=== PATIENT | female | born 1950 | race Caucasian/White ===

== ENCOUNTER → 2023-07-21 07:00 | Outpatient (CLI) | payer MEDICARE, SELFPAY ==
--- NOTE | 2023-07-21 07:19 | XR_ITS ---
FINAL REPORT CLINICAL HISTORY: wheezing FINDINGS: 2 views of the chest were obtained . The heart is normal in size. The mediastinum is within normal limits. There is mild linear atelectasis or scarring at the left lung base. The lungs are otherwise clear. There is no pneumothorax. Osseous structures are unremarkable. IMPRESSION: Mild linear atelectasis or scarring at the left lung base. Reviewed, Interpreted and Dictated by Phoenix Wright III, MD Transcribed by Elvira Torres Authenticated and [facility]
[2023-07-21 07:40] LABS: Basophils # 0.1 K/mm3 (0-0.2); Basophils % 0.8 % (0.1-2.0); Eosinophils # 0.4 K/mm3 (0.0-0.4); Eosinophils % 3.6 % (0.1-12.0); Hematocrit 46.8 % (37.0-47.0); Hemoglobin 15.1 g/dL (12.2-16.2); Lymphocytes # 3.1 K/mm3 (0.7-4.5); Lymphocytes % 28.4 % (10-50); Mean Corpuscular HGB Conc 32.4 g/dL (31.8-35.4); Mean Corpuscular Hemoglobin 29.7 pg (27.0-31.2); Mean Corpuscular Volume 91.8 fl (81-99); Mean Platelet Volume 7.8 fl (7.4-10.4); Monocytes # 0.7 K/mm3 (0.1-1.0); Monocytes % 6.6 % (1.7-9.3); Neutrophils # 6.6 K/mm3 (1.8-7.8); Neutrophils % 60.6 % (37.0-80.0); Platelet Count 355 K/mm3 (142-424); Red Blood Count 5.09 M/mm3 (4.20-5.40); Red Cell Distribution Width 13.5 % (11.5-17.5)
[2023-07-21 08:13] LABS: Alanine Aminotransferase 20 U/L (12-78); Albumin Level 4.6 g/dl (3.5-5.0); Alkaline Phosphatase 87 U/L (38-126); Anion Gap 15.1 mEq/L (5-15); Aspartate Amino Transferase 24 U/L (14-36); Bilirubin,Direct 0.1 mg/dl (0.0-0.4); Bilirubin,Indirect 0.2 mg/dL (0.0-0.9); Bilirubin,Total 0.3 mg/dl (0.2-1.3); Bilirubin,Unconjugated 0.2 mg/dL (0.0-1.1); Blood Urea Nitrogen 20 mg/dl (7-17); Calcium 8.9 mg/dl (8.4-10.2); Carbon Dioxide 24 mmol/L (22.0-30.0); Chloride 105 mmol/L (98-107); Chol/HDL Ratio 3.5 (1-3.5); Cholesterol 198 mg/dl (140-200); Estimated Glomerular Filt Rate 54 ml/min (>60); GFR (African American) 66 ML/MIN (>60); Glucose 112 mg/dl (74-100); HDL Cholesterol 57 mg/dl (40-60); Magnesium 2.3 mg/dl (1.6-2.3); Potassium 4.1 mmoL/L (3.5-5.1); Sodium 140 mmol/L (136-145); Total Protein,Serum 7.8 g/dl (6.3-8.2); Triglycerides 182 mg/dl (30-150); VLDL Cholesterol 36 mg/dL (0-40)
[2023-07-21 08:24] LABS: Direct LDL Cholesterol 79.93 mg/dL (100-129)
[2023-07-21 08:43] LABS: Thyroid Stimulating Hormone 1.65 uIU/mL (0.465-4.68)
== END ==
PROVIDERS: PCP Nurse Practitioner Family; Visit Provider Physician Assistant
DX: E78.5 Hyperlipidemia, unspecified (principal); I10 Essential (primary) hypertension; R00.2 Palpitations; R60.0 Localized edema; Z82.49 Family history of ischemic heart disease and other diseases of the circulatory system; R06.2 Wheezing; R09.89 Other specified symptoms and signs involving the circulatory and respiratory systems; Z85.528 Personal history of other malignant neoplasm of kidney; Z87.19 Personal history of other diseases of the digestive system; Z90.5 Acquired absence of kidney
CPT/HCPCS: 36415; 71046; 80048; 80061; 80076; 83735; 84439; 84443; 85025

== ENCOUNTER → 2023-07-23 06:12 | Outpatient (CLI) | payer MEDICARE, SELFPAY ==
--- NOTE | 2023-07-23 06:16 | NM_ITS ---
APPROVED REPORT Exam: Nuclear Stress Test Indication: swelling..high BP..high cholesterol..family hx Patient Location: Outpatient Stress Tech: Roselia Juan ALVAREZ Tech:Eliz Castaneda OMERO RT(R)(N) Ht: 5 ft 7 in Wt: 173 lbs Bra Size: 36dd HR: 71 bpm BP: 169/87 mmHg BSA: 1.90 m2 TID: 1.08 BMI: 27.0 History: swelling..high BP..high cholesterol..family hx Procedure: Patient received 0.4 mg of intravenous Lexiscan, resting heart rate 71 bpm, resting blood pressure 169/87 mmHg, with Lexiscan maximum heart rate achieved was 91 bpm which is 85 % of the maximum predicted heart rate and blood pressure was 194/89 mmHg. With Lexiscan, patient denied any complaint of chest pain. Cardiac Stress and Resting SPECT Images: Cardiac Stress and Resting SPECT images were obtained using technetium 99m Myoview 31.7 mCi stress and 10.76 mCi at rest. Resting and stress imaging in both supine and prone positions demonstrate no evidence of fixed or reversible perfusion defects. Gated imaging demonstrates normal global and regional LV systolic function. LVEF is calculated at 64%. Conclusion: No evidence of fixed or reversible perfusion defects. Gated imaging demonstrates normal global and regional LV systolic function. LVEF is calculated at 64%. Electronically signed by : Martha Murillo MD 08/02/2023 17:34:08
--- NOTE | 2023-07-23 06:40 | CA_ITS ---
FINAL REPORT CLINICAL HISTORY: leg swelling left greater than right FINDINGS: Color Doppler, duplex Doppler and compression sonography of the bilateral lower extremities was performed. There is no evidence of deep venous thrombosis from the level of the groin to the calf. The deep veins are patent and compressible. There is a moderate sized popliteal cyst on the left. IMPRESSION: No evidence of deep venous thrombosis bilateral lower extremities. Reviewed, Interpreted and Dictated by Phoenix Wright III, MD Transcribed by Rhina Medina Authenticated and [facility]
--- NOTE | 2023-07-23 06:40 | US_ITS ---
FINAL REPORT CLINICAL HISTORY: decreased pedal pulses, HTN FINDINGS: COMPLETE ANKLE/BRACHIAL INDICES BILATERAL Ankle brachial indices were obtained. The right DENNISE is 1.1. The left DENNISE is 1.1. IMPRESSION: ABIs are within normal limits bilaterally. Reviewed, Interpreted and Dictated by Phoenix Wright III, MD Transcribed by Rhina Medina Authenticated and . [facility]
--- NOTE | 2023-07-23 08:52 | CA_ITS ---
APPROVED REPORT Exam: Pharmacologic Technologist: Roselia Martinez Ht: 5 ft 7 in Wt: 173 lbs BSA: 1.90 m2 HR: 68 bpm BP: 169/87 mmHg Rhythm: NSR Indications: Hypertension, Palpitations, Edema Medical History Medications: Lisinopril,,,,, Simvastatin,,,,, Carvedilol,,,,, LoraTidine,,,,, Felodipine ER,,,,, Stress Test Details Test: LEXISCAN HR Resting HR: 71 bpm Max Heart Rate (APMHR): 147 bpm Max HR Achieved: 91 bpm Target HR (85% APMHR): 125 bpm % of APMHR: 62 Recovery HR: 76 bpm BP Resting BP: 169.0/87.0 mmHg Max BP: 194.0/89.0 mmHg Recovery BP: 146.0/86.0 mmHg ECG Resting ECG: Normal sinus rhythm Stress ECG: No significant ST changes Arrhythmia: PVCs Clinical Exercise duration: 04:03 min Highest Stage Achieved: Exercise capacity: 1.0 METs Stress ECG Conclusion Symptoms: Mild shortness of air, stomach and head discomfort. No chest pain. Arrhythmias/Ectopy: Occassional PVCs ST-T Changes: No significant ST changes. Conclusion: Unremarkable Lexiscan stress test. Myoview images reported separately. Test Summary REST . . . . . . . Resting REST 06:43 . . 71 . 169/ 87 . . Stage 1 . . . . . . . Myoview Injected Stage 1 01:00 . . 84 . . . . Stage 2 01:00 . . 89 . 194/ 89 . . Stage 3 01:00 . . 85 . 187/ 91 . . Stage 4 01:00 . . 79 . 181/ 88 . . Stage 4 01:03 . . 80 . 181/ 88 . Stop exercise at 04:03 RECOVERY 01:00 . . 79 . 176/ 89 . . RECOVERY 02:00 . . 81 . 176/ 89 . . RECOVERY 03:00 . . 80 . 146/ 86 . . RECOVERY 03:30 . . 77 . 146/ 86 . . Electronically signed by : Martha Murillo MD 08/02/2023 17:32:31
== END ==
PROVIDERS: PCP Nurse Practitioner Family; Visit Provider Physician Assistant
DX: E78.5 Hyperlipidemia, unspecified (principal); I10 Essential (primary) hypertension; R00.2 Palpitations; R07.9 Chest pain, unspecified; R60.0 Localized edema; Z82.49 Family history of ischemic heart disease and other diseases of the circulatory system; R09.89 Other specified symptoms and signs involving the circulatory and respiratory systems; M79.604 Pain in right leg; M79.605 Pain in left leg
CPT/HCPCS: 78452; 93017; 93923; 93970; A9502; J2785

== ENCOUNTER → 2023-08-06 12:38 | Outpatient (CLI) | payer MEDICARE, SELFPAY ==
--- NOTE | 2023-08-06 12:54 | CA_ITS ---
APPROVED REPORT EXAM: Comprehensive 2D, Doppler, and color-flow Echocardiogram Staff Veterinarian: Vani Hudson RVT Ht: 5 ft 7 in Wt: 173lbs BSA: 1.90 BP: 175/95 mmHg Indications: EDEMA,PALPS,HTN,HX RENAL CELL CA 2D Dimensions LVOT 1.87 cm (M/F) 1.5-2.5 LA Volume 48.40 mL LA Volume Index 25.47 mL/m2 (M/F) 16-34 M-Mode Dimensions RVDd 3.41 cm (0.9-2.6) LA Diam 3.92 cm (1.9-4.0) LVDd 3.45 cm (3.5-5.7) Ao Diam 2.88 cm (2.0-3.7) LVDs 2.49 cm (3.5-5.7) IVSd 1.40 cm (0.6-1.1) PWd 0.64 cm (0.6-1.1) EF (Teich) 55.00% FS 27.80% EDV (Teich) 49.10 mL TAPSE 2.33 (<1.7) ESV (Teich) 22.10 mL LV Diastology E Decel Time 257.00 (160-240 msec) E/A Ratio 0.7 MED E' 8.60 (< 7 cm/sec) E'/MED E' Ratio 7.17 (>14) LAT E' 5.40 (<10 cm/sec) E/LAT E' Ratio 11.43 (>14) Aortic Valve LVOT Max 99.00 (70-110 cm/s) LVOT VTI 21.89 cm AoV Peak Molina. 151.00 (50-130 cm/s) AO Peak GR. 9.10 mmHg AO Mean GR. 4.20 (<5 mmHg) AO VTI 29.46 (18-25 cm) ANTOINETTE (VTI) 2.04 (2.5-4.5 cm2) Mitral Valve MV E Max Molina. 62.00 (40-130 cm/s) MV A Velocity 95.00 (40-130 cm/s) E/A Ratio 0.65 MV Decel. Time 257.00 (160-240 ms) MV PHT 75.00 ms Pulmonary Valve PV Peak Velocity 80.00 (50-150 cm/s) Tricuspid Valve TR P. Velocity 291.00 cm/s RAP Estimate 10.00 mmHg RVSP 43.80 mmHg Left Ventricle The left ventricle is normal size. The left ventricular systolic function is normal. The left ventricular ejection fraction is within the normal range. There is increased LV wall thickness (IVSd 1.4 cm). There is normal LV segmental wall motion. The left ventricular diastolic function is normal. LVEF is 60%. Right Ventricle The right ventricle is normal size. The right ventricular systolic function is normal. There is increased RV wall thickness. Atria The left atrium size is normal. There is no Doppler evidence of interatrial shunt. Aortic Valve The aortic valve is mildly thickened. There is no aortic valvular stenosis. Trace aortic regurgitation. Mitral Valve The mitral valve leaflets are mildly thickened. No evidence of mitral valve stenosis. Trace mitral regurgitation. Tricuspid Valve The tricuspid valve leaflets are thin and pliable. Mild tricuspid regurgitation. RVSP is 30-35 mmHg. Pulmonic Valve The pulmonary valve is normal in structure. Trace pulmonic regurgitation. Great Vessels The aortic root is normal in size. The ascending aorta is normal in size. IVC is normal in size and collapses >50% with inspiration. There are no echodensities noted in the IVC. Pericardium There is no pericardial effusion. Other Information Study Quality: Fair Conclusion Normal biventricular systolic function. Increased LV wall thickness (IVSd=1.4 cm). No significant valvular stenosis or regurgitation. Electronically signed by : Martha Murillo MD 08/09/2023 19:25:54
== END ==
PROVIDERS: PCP Nurse Practitioner Family; Visit Provider Physician Assistant
DX: E78.5 Hyperlipidemia, unspecified (principal); I10 Essential (primary) hypertension; R00.2 Palpitations; R60.0 Localized edema; Z82.49 Family history of ischemic heart disease and other diseases of the circulatory system
CPT/HCPCS: 93306

== ENCOUNTER → 2023-09-11 09:31 | Outpatient (CLI) | payer MEDICARE, SELFPAY ==
--- NOTE | 2023-09-11 09:38 | XR_ITS ---
FINAL REPORT CLINICAL HISTORY: LT LEG PAIN and numbess COMPARISON: None FINDINGS: Two views of the left tibia/fibula were obtained. There is no acute fracture or dislocation. There is moderate degenerative change of the knee. There is no acute soft tissue abnormality. IMPRESSION: No acute abnormality identified. Reviewed, Interpreted and Dictated by Phoenix Wright III, MD Transcribed by Renée Lynn Authenticated and . [facility]
== END ==
PROVIDERS: PCP Nurse Practitioner Family; Visit Provider Orthopaedic Surgery
DX: M79.605 Pain in left leg (principal)
CPT/HCPCS: 73590

== ENCOUNTER 2024-04-12 09:58 | Outpatient (POV) | payer MEDICARE, SELFPAY ==
[2024-04-12 10:52] VITALS: BP 160/90; PULSE 66; RESP 18; O2SAT 96; BMI 29.0
--- NOTE | 2024-04-12 11:03 | XR_ITS ---
FINAL REPORT CLINICAL HISTORY: JOVAN KNEE PAIN COMPARISON: None FINDINGS: Three views of the left knee reveal no evidence of fracture or dislocation. The bony alignment is normal. There is moderate to severe degenerative change in the left knee, most severe in the medial compartment. There is a small joint effusion present. No localized soft tissue abnormality is seen. IMPRESSION: No acute abnormality identified. Moderate to severe degenerative change, most severe in the medial compartment. Reviewed, Interpreted and Dictated by Phoenix Wright III, MD Transcribed by Sonja Rhodes Authenticated and [facility]
--- NOTE | 2024-04-12 11:03 | XR_ITS ---
FINAL REPORT CLINICAL HISTORY: LBP COMPARISON: None FINDINGS: 5 views of the lumbar spine were obtained. There is no evidence of fracture or dislocation. There is mild levoscoliosis present at the L1 level. There is moderate degenerative change with multilevel osteophytes present. Facet arthropathy is noted. Vascular calcifications are present. IMPRESSION: No acute bony abnormality. Moderate degenerative change as described above. Reviewed, Interpreted and Dictated by Phoenix Wright III, MD Transcribed by Sonja Rhodes Authenticated and [facility]
--- NOTE | 2024-04-12 11:03 | XR_ITS ---
FINAL REPORT CLINICAL HISTORY: JOVAN KNEE PAIN COMPARISON: None FINDINGS: Three views of the right knee reveal no evidence of fracture or dislocation. The bony alignment is normal. There is moderate to severe degenerative change in the right knee, most severe in the medial compartment. A small joint effusion is present. No localized soft tissue abnormality is identified. IMPRESSION: No acute abnormality identified. Moderate to severe degenerative change in the right knee, most severe in the medial compartment. Reviewed, Interpreted and Dictated by Phoenix Wright III, MD Transcribed by Sonja Rhodes Authenticated and [facility]
--- NOTE | 2024-04-12 11:40 | A.OFFVIS_ITS ---
HPI Data of Consult Patient: new to practice Consult date: 04/12/24 Requesting Physician: Elsa Farah APRN Primary Care Provider: Maci Driscoll Consult Narrative Reason for consult: Bilateral knee pain, low back pain History of present illness: Ms. Mi is a 73 year old female who presents today as a new patient. Patient is a referral from Cal Farah's office. Today she rates her pain an 8 out of 10. Patient states the pain is throughout her bilateral knees as well as chronic low back pain. Patient states this is been going on for years and progressively worsened over time. She does describe it as a chronic aching, sensation with numbness. Patient states that she did see a arthritis doctor [facility] 6 years ago and they told her then that her knees were [id number] and that she needed a replacement. Patient states that she has tried conservative treatment such as Tylenol along with heat and ice and topicals with minimal relief. Patient does states she has to avoid NSAIDs due to having only 1 kidney functioning. Patient states she had cancer on the kidney and that they did monitor it regularly and states they have not had any issues with this since. Patient does state that her pain interferes with her ability perform activities of daily living such as cooking and cleaning and that it significantly increases when she is up walking. Patient states that sitting down is not that bad. Patient denies any recent imaging. Patient denies any previous surgery or physical therapy. Patient has had several sessions of chiropractor therapy and states that this has helped some. Patient does try and stay active at home with exercise and stretching. Patient has had injection in her left knee however states this did not really help. She also states she has had a round of gel injections as well with no additional improvement. Patient does states she will even have some swelling in her left lower extremity. Patient is interested in any help we may be able to provide. Her Domo has been reviewed and is appropriate. CC: Elsa Farah APRN [facility] Disclaimer: The information contained in this section may have been updated after the patient was seen, as this information can be updated by other users. Medical History (Updated 04/12/24 @ 11:44 by Elsa Farah APRN) History of colitis History of renal cell cancer Edema of both lower extremities HLD (hyperlipidemia) HTN (hypertension) Family history of chronic ischemic heart disease Surgical History (Updated 04/12/24 @ 10:53 by Emely Malave RN) Surgical history unknown History of nephrectomy Family History (Updated 04/12/24 @ 10:53 by Emely Malave RN) Other Unknown family medical history Social History (Updated 04/12/24 @ 10:54 by Emely Malave RN) Smoking Status: Never smoker alcohol intake: never current occupational status: other Travel in the last 8 weeks: None Review of Systems Review of Systems Review of systems:: pertinent systems reviewed and negative unless documented below Review of systems (narrative): Review of Systems: General: No recent weight changes, no fever, no sleep disturbances Respiratory: No cough, no shortness of air, no recurring pulmonary infections Cardiovascular/peripheral vascular: No chest pain, no palpitations, no edema, no shortness of breath Gastrointestinal: No new onset incontinence, normal bowel movements reported Genitourinary: No new onset incontinence Musculoskeletal: Low back pain, bilateral knee pain Psychiatric: [Normal mood/affect] Neurological: [Denies weakness in extremities], [denies balance issues] Meds Home Medications and Allergies Home Medications Medication Instructions Recorded Confirmed Type loratadine 10 mg tablet 10 mg PO DAILY 07/17/23 03/23/24 History simvastatin 40 mg tablet 40 mg PO DAILY 07/17/23 03/23/24 History felodipine 10 mg tablet,extended 10 mg PO DAILY 08/13/23 03/23/24 History release 24 hr ibandronate 150 mg tablet 150 mg PO QMONTH 11/13/23 03/23/24 History losartan 100 mg tablet See Rx Instructions .Route 12/10/23 03/23/24 Rx .COMPLEX #90 tabs potassium chloride 10 mEq 10 meq PO DAILY 12/30/23 03/23/24 History tablet,extended release carvedilol 12.5 mg tablet See Rx Instructions .Route 03/08/24 03/23/24 Rx .COMPLEX #60 tabs New Prescriptions to Start Prescriptions: Allergies Allergy/AdvReac Type Severity Reaction Status Date / Time No Known Allergies Allergy Verified 03/23/24 11:53 Objective Vital signs: Pulse Resp BP Pulse Ox O2 Del Method 66 18 160/90 H 96 Room Air 04/12/24 10:52 04/12/24 10:52 04/12/24 10:52 04/12/24 10:52 04/12/24 10:52 Narrative: Physical Exam: General: Alert and oriented x3, no acute distress, pleasant and cooperative Lungs: Respirations even and unlabored, symmetrical chest expansion Eyes: PERRL Musculoskeletal: Flexion and extension of lumbar [spine] somewhat guarded secondary to pain, [antalgic gait noted] Neurological: Speech clear, no gross sensory deficit Assessment and Plan *Assessment and plan (1) Osteoarthritis of right knee: Status: Acute Qualifiers: Osteoarthritis type: primary Qualified Code(s): M17.11 - Unilateral primary osteoarthritis, right knee Category: Medical Code(s): M17.11 - Unilateral primary osteoarthritis, right knee (2) Osteoarthritis of left knee: Status: Acute Qualifiers: Osteoarthritis type: primary Qualified Code(s): M17.12 - Unilateral primary osteoarthritis, left knee Category: Medical Code(s): M17.12 - Unilateral primary osteoarthritis, left knee (3) Lumbar radiculopathy: Status: Acute Category: Medical Code(s): M54.16 - Radiculopathy, lumbar region (4) Low back pain: Status: Acute Qualifiers: Chronicity: chronic Back pain laterality: bilateral Sciatica presence: without sciatica Qualified Code(s): M54.50 - Low back pain, unspecified; G89.29 - Other chronic pain Category: Medical Code(s): M54.50 - Low back pain, unspecified Plan Patient is experiencing significant pain throughout her low back as well as into her bilateral knees. Patient did have limited range of motion of her lumbar spine during today's visit. Due to the fact that she does not have any updated imaging I will order x-ray of her bilateral knees and lumbar spine with the plan to proceed forward and order bilateral MRIs without contrast of her knees. Patient agrees with this plan of care. I have discussed that we will look at her low back in future. Patient does state that her knees are worse than her overall back pain. Will order the patient a compounded cream. Patient will return to clinic in 1 month for reevaluation of symptoms and plan of care. Patient has tried and failed conservative therapy including continued at home stretching exercise for longer than 6 weeks. Patient has been instructed to contact the clinic with any concerns before the next appointment. Dr. Amezquita has reviewed this note and agrees with this plan of care. This note was dictated using voice recognition software and make contain errors or omissions.
== END 2024-04-12 23:59 | disposition home or self-care (01) ==
PROVIDERS: PCP Nurse Practitioner Family; Visit Provider Nurse Practitioner Family
DX: M54.16 Radiculopathy, lumbar region; M54.50 Low back pain, unspecified; G89.29 Other chronic pain; M17.0 Bilateral primary osteoarthritis of knee
CPT/HCPCS: 72110; 73562; 99202; G0463

== ENCOUNTER 2024-05-17 09:47 | Outpatient (POV) | payer MEDICARE, SELFPAY ==
--- NOTE | 2024-05-17 10:11 | EXP.PAIN.SOA ---
[facility] Disclaimer: The information contained in this section may have been updated after the patient was seen, as this information can be updated by other users. Medical History (Updated 05/17/24 @ 10:15 by Elsa Farah APRN) History of colitis History of renal cell cancer Edema of both lower extremities HLD (hyperlipidemia) HTN (hypertension) Family history of chronic ischemic heart disease Surgical History (Updated 04/12/24 @ 10:53 by Emely Malave RN) Surgical history unknown History of nephrectomy Family History (Updated 04/12/24 @ 10:53 by Emely Malave RN) Other Unknown family medical history Social History (Updated 04/12/24 @ 10:54 by Emely Malave RN) Smoking Status: Never smoker alcohol intake: never current occupational status: other Travel in the last 8 weeks: None PM Subjective & Objective Subjective Subjective:: Patient is a pleasant 74-year-old female who presents today for imaging follow-up. Today she rates her pain an 8 out of 10. Patient denies any new trauma or injury. She does state that she continues to have chronic pain throughout her low back with radiating symptoms down her legs and bilateral knees. Patient does describe the pain as an aching, throbbing sensation with numbness and tingling into her lower extremities. This has been going on for 20+ years she states. She does state that the pain interferes with her ability to perform activities of daily living such as cooking and cleaning. Patient does state that overall her low back pain started before her knee issues. Patient does also state that she experiences significant swelling in her legs with the left being more prominent. Patient states that over time it would come and go however she feels like through the years it is worse send. Patient has tried [id number] medications along with heat and ice and topicals with minimal relief. Patient does only have 1 functioning kidney and cannot tolerate any NSAIDs due to this. Patient is prescribed compounded cream and states that it does really help her back symptoms however does not do a whole lot for her knee pain. Patient has had chiropractor therapy for multiple sessions and continues to do at home exercise and stretching with minimal relief. Her Domo has been reviewed and is appropriate. Review of Systems: General: No recent weight changes, no fever, no sleep disturbances Respiratory: No cough, no shortness of air, no recurring pulmonary infections Cardiovascular/peripheral vascular: No chest pain, no palpitations, no edema, no shortness of breath Gastrointestinal: No new onset incontinence, normal bowel movements reported Genitourinary: No new onset incontinence Musculoskeletal: Low back pain, leg pain Psychiatric: [Normal mood/affect] Neurological: [Denies weakness in extremities], [denies balance issues] Pain at rest (0-10 scale): 8 Objective Objective:: Physical Exam: General: Alert and oriented x3, no acute distress, pleasant and cooperative Lungs: Respirations even and unlabored, symmetrical chest expansion Eyes: PERRL Musculoskeletal: Flexion and extension of lumbar [spine] somewhat guarded secondary to pain, [antalgic gait noted] swelling noted to left extremity with decreased sensation to light touch Neurological: Speech clear, no gross sensory deficit Has patient had previous pain injection?: No Conservative treatment options previously tried: NSAIDS Length of treatment: Previous history however unable to tolerate due to only 1 functioning kidne, Home exercise plan Length of treatment: Longer than 12 weeks, Chiropractor Length of treatment: Longer than 6 weeks and Prescription medications Length of treatment: Longer than 6 weeks Meds Home Medications and Allergies Home Medications Medication Instructions Recorded Confirmed Type loratadine 10 mg tablet 10 mg PO DAILY 07/17/23 04/12/24 History simvastatin 40 mg tablet 40 mg PO DAILY 07/17/23 04/12/24 History felodipine 10 mg tablet,extended 10 mg PO DAILY 08/13/23 04/12/24 History release 24 hr ibandronate 150 mg tablet 150 mg PO QMONTH 11/13/23 04/12/24 History losartan 100 mg tablet See Rx Instructions .Route 12/10/23 04/12/24 Rx .COMPLEX #90 tabs potassium chloride 10 mEq 10 meq PO DAILY 12/30/23 04/12/24 History tablet,extended release carvedilol 12.5 mg tablet See Rx Instructions .Route 03/08/24 04/12/24 Rx .COMPLEX #60 tabs New Prescriptions to Start Prescriptions: Allergies Allergy/AdvReac Type Severity Reaction Status Date / Time No Known Allergies Allergy Verified 03/23/24 11:53 Assessment and Plan *Assessment and plan (1) Lumbar radiculopathy: Status: Acute Category: Medical Code(s): M54.16 - Radiculopathy, lumbar region (2) Degenerative disc disease, lumbar: Status: Acute Category: Medical Code(s): M51.36 - Other intervertebral disc degeneration, lumbar region (3) Osteoarthritis of right knee: Status: Acute Qualifiers: Osteoarthritis type: primary Qualified Code(s): M17.11 - Unilateral primary osteoarthritis, right knee Category: Medical Code(s): M17.11 - Unilateral primary osteoarthritis, right knee (4) Osteoarthritis of left knee: Status: Acute Qualifiers: Osteoarthritis type: primary Qualified Code(s): M17.12 - Unilateral primary osteoarthritis, left knee Category: Medical Code(s): M17.12 - Unilateral primary osteoarthritis, left knee Plan Patient is experiencing worsening pain throughout her low back and into her bilateral lower extremities with numbness and tingling. Patient did have limited range of motion of her lumbar spine with swelling noted throughout her left extremity in comparison to the right and decreased sensitivity to light touch. I did discuss with patient that she may benefit from lumbar epidural steroid injection. Risk and benefits were discussed with the patient and she would like to proceed forward with this plan of care. Patient has tried and failed conservative therapy including oral medication, heat and ice, topicals, chiropractor therapy, continued at home stretching exercise for longer than 12 weeks with minimal relief. We will submit to insurance for a lumbar epidural steroid injection L4-L5 under fluoroscopy. Patient has been instructed to contact the clinic with any concerns before the next appointment. Dr. Amezquita has reviewed this note and agrees with this plan of care. This note was dictated using voice recognition software and make contain errors or omissions.
[2024-05-17 10:47] VITALS: BP 141/75; PULSE 72; RESP 18; O2SAT 95; BMI 28.1
== END 2024-05-17 23:59 | disposition home or self-care (01) ==
LOC: SC.PAIN 09:48
PROVIDERS: PCP Nurse Practitioner Family; Visit Provider Nurse Practitioner Family
DX: M54.16 Radiculopathy, lumbar region (principal); M51.36 Other intervertebral disc degeneration, lumbar region; M17.11 Unilateral primary osteoarthritis, right knee; M17.12 Unilateral primary osteoarthritis, left knee; G89.29 Other chronic pain
CPT/HCPCS: 99212; G0463

== ENCOUNTER 2024-06-01 09:01 | Day surgery (SDC) | payer MEDICARE, SELFPAY ==
[2024-06-01 09:20] VITALS: BP 172/90; PULSE 67; RESP 18; TEMP 36.4; O2SAT 96; BMI 29.0
[2024-06-01 09:32] VITALS: BP 173/91; PULSE 66; RESP 18; O2SAT 93
[2024-06-01] MEDS: methylPREDNISolone ACETATE 80MG/ML VIAL 80 MG (09:32)
[2024-06-01 09:33] VITALS: BP 173/90; PULSE 68; RESP 18; O2SAT 94
[2024-06-01 09:39] VITALS: BP 187/92; PULSE 69; RESP 18; O2SAT 96
--- NOTE | 2024-06-01 09:42 | P.PCN_ITS ---
Procedure Date: 06/01/24 Time: 09:20 Anesthesiologist:: Ld Leon CRNA Complications:: None Pre-procedure Diagnosis:: Degenerative disc lumbar spine multilevels. Lumbar radiculopathy. Lumbar spondylosis. Lumbar facet arthropathy. Post-procedure Diagnosis:: Same. Indications for Procedure:: Patient is a pleasant 74-year-old female comes our clinic today for lumbar epidural steroid injection. Patient describes low back pain as constant, dull, aching. Patient also reports bilateral hip and leg radicular symptoms. She rates her pain 7/10. Procedure Details:: Procedure: Lumbar epidural steroid injection under fluoroscopy Informed consent was obtained and the risks and benefits of the procedure were explained to the patient. The patient was taken to the procedure room and noninvasive monitors placed, including noninvasive blood pressure cuff and pulse oximeter. The back was viewed using C-arm Fluoroscopy and prepped using Chloraprep as a cleansing solution and the L4-L5 interspace was palpated. Skin and subcutaneous tissues were anesthetized using lidocaine 1.5% and a 25-gauge needle. After this, an 18-gauge Touhy epidural needle was placed into the L4-L5 interspace and advanced using fluoroscopic guidance and loss of resistance to air until the epidural space was encountered. After confirmation of needle placement in the epidural space, with dye, a solution containing normal saline, 3 mL and Depo-Medrol 80 mg were incrementally injected into the lumbar epidural space. The patient tolerated the procedure well with no complications. The patient was observed in the Pain Clinic and then discharged home neurologic ally intact. Plan and Disposition:: Patient was discharged without incident.
== END 2024-06-01 09:40 | disposition home or self-care (01) ==
PROVIDERS: PCP Nurse Practitioner Family; Visit Provider Nurse Anesthetist, Certified Registered
DX: M47.26 Other spondylosis with radiculopathy, lumbar region (principal)
CPT/HCPCS: 62323; J1010

== ENCOUNTER 2024-06-17 10:47 | Outpatient (POV) | payer MEDICARE, SELFPAY ==
[2024-06-17 10:53] VITALS: BP 182/94; PULSE 70; RESP 16; O2SAT 96; BMI 29.0
--- NOTE | 2024-06-17 11:02 | EXP.PAIN.SOA ---
[facility] Disclaimer: The information contained in this section may have been updated after the patient was seen, as this information can be updated by other users. Medical History History of colitis History of renal cell cancer Edema of both lower extremities HLD (hyperlipidemia) HTN (hypertension) Family history of chronic ischemic heart disease Surgical History Surgical history unknown History of nephrectomy Family History Other Unknown family medical history Social History Smoking Status: Never smoker alcohol intake: never current occupational status: unemployed Travel in the last 8 weeks: None PM Subjective & Objective Subjective Subjective:: Patient is a pleasant 74-year-old female [facility] of lumbar epidural steroid injection L4-L5 on 06/01/2024. Today she rates her pain a 7 out of 10. Patient does state she has had at least 50% improvement following this injection and that her leg symptoms are much better. Patient states that her right leg is completely relieved and that she still has some numbness in the left side with some swelling however it is not nearly as severe or as constant as it was prior. Patient does state when she went in for this injection he did seem to hit directly on it and almost hit a nerve which did cause worsening pain for the first couple of days however once it kicked again it did ease off the pain and she feels a lot more functional. She states she was able to even work in her garden this week which is a pretty good size. Patient does state a lot of her pain today is more related to her knees. Patient denies any new trauma or injury. She does state that she has had the cortisone injections in her knees with minimal relief. Patient states that she did go to the arthritis Center and they had talked about doing the gel injections however they never ended up proceeding forward with this. Her Domo has been reviewed and is appropriate. Patient was tried on compounded cream however states she did not notice significant improvement in her knee pain with this. Review of Systems: General: No recent weight changes, no fever, no sleep disturbances Respiratory: No cough, no shortness of air, no recurring pulmonary infections Cardiovascular/peripheral vascular: No chest pain, no palpitations, no edema, no shortness of breath Gastrointestinal: No new onset incontinence, normal bowel movements reported Genitourinary: No new onset incontinence Musculoskeletal: Bilateral knee pain Psychiatric: [Normal mood/affect] Neurological: [Denies weakness in extremities], [denies balance issues] Pain at rest (0-10 scale): 7 Objective Objective:: Physical Exam: General: Alert and oriented x3, no acute distress, pleasant and cooperative Lungs: Respirations even and unlabored, symmetrical chest expansion Eyes: PERRL Musculoskeletal: Flexion and extension of bilateral knees somewhat guarded secondary to pain, [antalgic gait noted] Neurological: Speech clear, no gross sensory deficit Has patient had previous pain injection?: Yes Percent improvement in pain since last injection: 50% Conservative treatment options previously tried: Home exercise plan Length of treatment: Longer than 6 weeks Meds Home Medications and Allergies Home Medications ?Medication ?Instructions ?Recorded ?Confirmed ?Type loratadine 10 mg tablet 10 mg PO DAILY 07/17/23 06/17/24 History simvastatin 40 mg tablet 40 mg PO DAILY 07/17/23 06/17/24 History felodipine 10 mg tablet,extended 10 mg PO DAILY 08/13/23 06/17/24 History release 24 hr ibandronate 150 mg tablet 150 mg PO QMONTH 11/13/23 06/17/24 History losartan 100 mg tablet See Rx Instructions .Route 12/10/23 06/17/24 Rx .COMPLEX #90 tabs potassium chloride 10 mEq 10 meq PO DAILY 12/30/23 06/17/24 History tablet,extended release carvedilol 12.5 mg tablet See Rx Instructions .Route 03/08/24 06/17/24 Rx .COMPLEX #60 tabs New Prescriptions to Start Prescriptions: Allergies Allergy/AdvReac Type Severity Reaction Status Date / Time No Known Allergies Allergy Verified 03/23/24 11:53 Assessment and Plan *Assessment and plan (1) Degenerative disc disease, lumbar: Status: Acute Category: Medical Code(s): M51.36 - Other intervertebral disc degeneration, lumbar region (2) Lumbar radiculopathy: Status: Acute Category: Medical Code(s): M54.16 - Radiculopathy, lumbar region (3) Osteoarthritis of right knee: Status: Acute Qualifiers: Osteoarthritis type: primary Qualified Code(s): M17.11 - Unilateral primary osteoarthritis, right knee Category: Medical Code(s): M17.11 - Unilateral primary osteoarthritis, right knee (4) Osteoarthritis of left knee: Status: Acute Qualifiers: Osteoarthritis type: primary Qualified Code(s): M17.12 - Unilateral primary osteoarthritis, left knee Category: Medical Code(s): M17.12 - Unilateral primary osteoarthritis, left knee Plan Patient has had significant improvement with the lumbar epidural and does not require any additional injection therapy. I did discuss at length with the patient regarding the gel injections and counseled her that Dr. Farah here at [facility] does do these injections and then I can always send a referral to his office who may do these for her to try. Patient does state that she will call over to their office and get set up for an appointment. Patient will return to clinic in 1 month for reevaluation of symptoms and plan of care. Patient has been instructed to contact the clinic with any concerns before the next appointment. Dr. Amezquita has reviewed this note and agrees with this plan of care. This note was dictated using voice recognition software and make contain errors or omissions. All injections are used with Lidocaine or Bupivacaine and Depo Medrol.
== END 2024-06-17 23:59 | disposition home or self-care (01) ==
LOC: SC.PAIN 10:48
PROVIDERS: PCP Nurse Practitioner Family; Visit Provider Nurse Practitioner Family
DX: M51.16 Intervertebral disc disorders with radiculopathy, lumbar region; M17.0 Bilateral primary osteoarthritis of knee
CPT/HCPCS: 99212; G0463

== ENCOUNTER 2024-08-31 09:16 | Day surgery (SDC) | payer MEDICARE, SELFPAY ==
[2024-08-31 09:33] VITALS: BP 172/79; PULSE 69; RESP 16; O2SAT 95; BMI 28.3
[2024-08-31] MEDS: methylPREDNISolone ACETATE 80MG/ML VIAL 80 MG (09:40)
[2024-08-31 09:43] VITALS: BP 146/74; PULSE 64; RESP 18; O2SAT 94
--- NOTE | 2024-08-31 09:43 | EXP.PAIN.PRO ---
Procedure Date: 08/31/24 Time: 09:40 Anesthesiologist:: Ld Leon CRNA Complications:: None Pre-procedure Diagnosis:: Degenerative disc lumbar spine multilevels. Lumbar radiculopathy. Post-procedure Diagnosis:: Same. Indications for Procedure:: Patient is a very pleasant 74-year-old female who comes our clinic today for lumbar epidural steroid injection. Patient describes low lumbar back pain as constant, dull, aching. Patient also reports bilateral hip and leg radicular symptoms. She rates her pain 7/10. Procedure Details:: Procedure: Lumbar epidural steroid injection under fluoroscopy Informed consent was obtained and the risks and benefits of the procedure were explained to the patient. The patient was taken to the procedure room and noninvasive monitors placed, including noninvasive blood pressure cuff and pulse oximeter. The back was viewed using C-arm Fluoroscopy and prepped using Chloraprep as a cleansing solution and the L4-L5 interspace was palpated. Skin and subcutaneous tissues were anesthetized using lidocaine 1.5% and a 25-gauge needle. After this, an 18-gauge Touhy epidural needle was placed into the L4-L5 interspace and advanced using fluoroscopic guidance and loss of resistance to air until the epidural space was encountered. After confirmation of needle placement in the epidural space, with dye, a solution containing normal saline, 3 mL and Depo-Medrol 80 mg were incrementally injected into the lumbar epidural space. The patient tolerated the procedure well with no complications. The patient was observed in the Pain Clinic and then discharged home neurologically intact. Plan and Disposition:: Patient was discharged without incident.
[2024-08-31 09:44] VITALS: BP 146/74; PULSE 64; RESP 18; O2SAT 94
[2024-08-31 09:56] VITALS: BP 146/93; PULSE 64; RESP 16; O2SAT 96
== END 2024-08-31 09:56 | disposition home or self-care (01) ==
PROVIDERS: PCP Nurse Practitioner Family; Visit Provider Nurse Anesthetist, Certified Registered
DX: M51.16 Intervertebral disc disorders with radiculopathy, lumbar region (principal)
CPT/HCPCS: 62323; J1010

== ENCOUNTER 2024-09-15 14:22 | Outpatient (POV) | payer MEDICARE, SELFPAY ==
[2024-09-15 14:48] VITALS: BP 152/91; PULSE 68; RESP 16; O2SAT 93; BMI 28.1
--- NOTE | 2024-09-15 15:47 | A.OFFVIS_ITS ---
[facility] Disclaimer: The information contained in this section may have been updated after the patient was seen, as this information can be updated by other users. Medical History History of colitis History of renal cell cancer Edema of both lower extremities HLD (hyperlipidemia) HTN (hypertension) Family history of chronic ischemic heart disease Surgical History Surgical history unknown History of nephrectomy Family History Other Unknown family medical history Social History Smoking Status: Never smoker alcohol intake: never current occupational status: other Travel in the last 8 weeks: None PM Subjective & Objective Subjective Subjective:: Patient is a pleasant 74-year-old female who presents today for follow-up of lumbar epidural steroid injection L4-L5 on 08/31/2024. Today she rates her pain a 3 out of 10. Patient states that she did at least have 50% improvement f ollowing this injection and feels like it has significantly helped with her lower left leg swelling. She states that she has been able to increase her activity with overall decreased pain and does feel more functional. Patient has also been prescribed compounded cream in the past however did not notice significant relief with this. At her last visit we did order her baclofen 5 mg 3 times daily. Patient does state this did help however feels like it could use additional adjustment if we are able to go up on the dosage. Her Domo has been reviewed and is appropriate. Review of Systems: General: No recent weight changes, no fever, no sleep disturbances Respiratory: No cough, no shortness of air, no recurring pulmonary infections Cardiovascular/peripheral vascular: No chest pain, no palpitations, no edema, no shortness of breath Gastrointestinal: No new onset incontinence, normal bowel movements reported Genitourinary: No new onset incontinence Musculoskeletal: Low back pain, leg pain Psychiatric: [Normal mood/affect] Neurological: [Denies weakness in extremities], [denies balance issues] Pain at rest (0-10 scale): 3 Objective Objective:: Physical Exam: General: Alert and oriented x3, no acute distress, pleasant and cooperative Lungs: Respirations even and unlabored, symmetrical chest expansion Eyes: PERRL Musculoskeletal: Flexion and extension of lumbar [spine] somewhat guarded secondary to pain, [antalgic gait noted] Neurological: Speech clear, no gross sensory deficit Has patient had previous pain injection?: Yes Percent improvement in pain since last injection: 50% Conservative treatment options previously tried: Home exercise plan Length of treatment: Longer than 12 weeks Meds Home Medications and Allergies Home Medications ?Medication ?Instructions ?Recorded ?Confirmed ?Type loratadine 10 mg tablet 10 mg PO DAILY 07/17/23 09/15/24 History simvastatin 40 mg tablet 40 mg PO DAILY 07/17/23 09/15/24 History felodipine 10 mg tablet,extended 10 mg PO DAILY 08/13/23 09/15/24 History release 24 hr ibandronate 150 mg tablet 150 mg PO QMONTH 11/13/23 09/15/24 History losartan 100 mg tablet See Rx Instructions .Route 12/10/23 09/15/24 Rx .COMPLEX #90 tabs potassium chloride 10 mEq 10 meq PO DAILY 12/30/23 09/15/24 History tablet,extended release carvedilol 12.5 mg tablet See Rx Instructions .Route 03/08/24 09/15/24 Rx .COMPLEX #60 tabs prednisone 20 mg tablet 20 mg PO BID #10 tabs 07/21/24 09/15/24 Rx baclofen 5 mg tablet 5 mg PO TID #90 tabs 09/01/24 09/15/24 Rx New Prescriptions to Start Prescriptions: Allergies Allergy/AdvReac Type Severity Reaction Status Date / Time No Known Allergies Allergy Verified 07/08/24 10:24 Assessment and Plan *Assessment and plan (1) Degenerative disc disease, lumbar: Status: Acute Category: Medical Code(s): M51.36 - Other intervertebral disc degeneration, lumbar region (2) Lumbar radiculopathy: Status: Acute Category: Medical Code(s): M54.16 - Radiculopathy, lumbar region Plan Patient has had significant improvement following her lumbar epidural and does not require any additional injection therapy at this time. Patient will be sent in with a baclofen 10 mg 3 times daily prescription for 2 months. Patient will return to clinic in 2 months for reevaluation of symptoms and plan of care. Patient has been instructed to contact the clinic with any concerns before the next appointment. Dr. Amezquita has reviewed this note and agrees with this plan of care. This note was dictated using voice recognition software and make contain errors or omissions. All injections are used with Lidocaine or Bupivacaine and Depo Medrol.
== END 2024-09-15 23:59 | disposition home or self-care (01) ==
PROVIDERS: PCP Nurse Practitioner Family; Visit Provider Nurse Practitioner Family
DX: M51.16 Intervertebral disc disorders with radiculopathy, lumbar region (principal)
CPT/HCPCS: 99212; G0463

== ENCOUNTER 2024-11-17 13:48 | Outpatient (POV) | payer MEDICARE, SELFPAY ==
--- NOTE | 2024-11-17 13:52 | EXP.PAIN.SOA ---
[facility] Disclaimer: The information contained in this section may have been updated after the patient was seen, as this information can be updated by other users. Medical History History of colitis History of renal cell cancer Edema of both lower extremities HLD (hyperlipidemia) HTN (hypertension) Family history of chronic ischemic heart disease Surgical History Surgical history unknown History of nephrectomy Family History Other Unknown family medical history Social History Smoking Status: Never smoker alcohol intake: never current occupational status: other Travel in the last 8 weeks: None PM Subjective & Objective Subjective Subjective:: Patient is a pleasant 74-year-old female who presents today for 2-month follow-up and medication refill.Today she rates her pain a 6 out of 10. She states from her last appointment she has had a couple falls but denies any significant injury. Patient did previously have a lumbar epidural at the L4-L5 back in August that did provide more than 50% relief and did help significantly. Patient does state that she feels like this injection has completely worn off and she is back to her baseline. She does state that she is having chronic pain throughout her low back that does radiate down into her lower extremities with numbness and tingling. Patient does state that she still feels like the leg swelling is still doing better than what it had been previously. She does state the pain is waking her up in the middle of the night and is affecting her ability perform activities of daily living such as cooking and cleaning. Patient does also make mention that her knees are giving her little bit more problems as well. She states that she knows that she does need knee replacement however she is trying to hold off as long as possible. Patient is interested in repeat injections due to the worsening pain.Patient is prescribed compounded cream and baclofen 10 mg 3 times daily from our office. She denies any side effects from this medication. She does state that the last increase on the baclofen did seem to help additionally. Her Domo has been reviewed and is appropriate. Review of Systems: General: No recent weight changes, no fever, no sleep disturbances Respiratory: No cough, no shortness of air, no recurring pulmonary infections Cardiovascular/peripheral vascular: No chest pain, no palpitations, no edema, no shortness of breath Gastrointestinal: No new onset incontinence, normal bowel movements reported Genitourinary: No new onset incontinence Musculoskeletal: Low back pain, leg pain Psychiatric: [Normal mood/affect] Neurological: [Denies weakness in extremities], [denies balance issues] Pain at rest (0-10 scale): 6 Objective Objective:: Physical Exam: General: Alert and oriented x3, no acute distress, pleasant and cooperative Lungs: Respirations even and unlabored, symmetrical chest expansion Eyes: PERRL Musculoskeletal: Flexion and extension of lumbar [spine] somewhat guarded secondary to pain, [antalgic gait noted] positive leg raise Neurological: Speech clear, no gross sensory deficit Has patient had previous pain injection?: No Conservative treatment options previously tried: Home exercise plan Length of treatment: Longer than 12 weeks Meds Home Medications and Allergies Home Medications ?Medication ?Instructions ?Recorded ?Confirmed ?Type loratadine 10 mg tablet 10 mg PO DAILY 07/17/23 09/15/24 History simvastatin 40 mg tablet 40 mg PO DAILY 07/17/23 09/15/24 History felodipine 10 mg tablet,extended 10 mg PO DAILY 08/13/23 09/15/24 History release 24 hr ibandronate 150 mg tablet 150 mg PO QMONTH 11/13/23 09/15/24 History losartan 100 mg tablet See Rx Instructions .Route 12/10/23 09/15/24 Rx .COMPLEX #90 tabs potassium chloride 10 mEq 10 meq PO DAILY 12/30/23 09/15/24 History tablet,extended release carvedilol 12.5 mg tablet See Rx Instructions .Route 03/08/24 09/15/24 Rx .COMPLEX #60 tabs prednisone 20 mg tablet 20 mg PO BID #10 tabs 07/21/24 09/15/24 Rx baclofen 5 mg tablet 5 mg PO TID #90 tabs 09/01/24 09/15/24 Rx baclofen 10 mg tablet 10 mg PO TID #90 tabs 09/15/24 Rx New Prescriptions to Start Prescriptions: Allergies Allergy/AdvReac Type Severity Reaction Status Date / Time No Known Allergies Allergy Verified 07/08/24 10:24 Assessment and Plan *Assessment and plan (1) Lumbar radiculopathy: Status: Acute Category: Medical Code(s): M54.16 - Radiculopathy, lumbar region (2) Degenerative disc disease, lumbar: Status: Acute Category: Medical Code(s): M51.369 - Other intervertebral disc degeneration, lumbar region without mention of lumbar back pain or lower extremity pain Plan Patient is experiencing worsening pain in her low back that does have numbness and tingling into her lower extremities. I did discuss with the patient due to her limited range of motion and positive leg raise that she may benefit from repeat lumbar epidural steroid injection. Risk and benefits were discussed with the patient and she would like to proceed forward with this plan of care. Patient has tried and failed conservative therapy including oral medication, heat and ice, topicals, at home stretching exercise for longer than 12 weeks and between injections. Patient's last epidural injection was on August 31, 2024 that did provide 50% improvement and lasted up until the last 2 weeks. Patient did have improved function with overall decreased pain. Patient is not on any blood thinners. We will schedule the patient for a LESI L4-L5 under fluoroscopy. I will also send in refills of her baclofen 10 mg 3 times daily and provide a 3-month supply. I did also review with the patient that after we take care of her low back and leg symptoms we can look at doing intra-articular knee injections in future. Patient has been instructed to contact the clinic with any concerns before the next appointment. Dr. Amezuqita has reviewed this note and agrees with this plan of care. This note was dictated using voice recognition software and make contain errors or omissions. All injections are used with Lidocaine, Bupivacaine and Depo Medrol. Occasionally urine drug screen is needed to verify patient's compliance with our office pain contract. This is ordered based off specific treatments related to chronic pain with the potential to abuse certain medications.
[2024-11-17 14:33] VITALS: BP 170/93; PULSE 89; RESP 14; O2SAT 100; BMI 28.1
== END 2024-11-17 23:59 | disposition home or self-care (01) ==
PROVIDERS: PCP Nurse Practitioner Family; Visit Provider Nurse Practitioner Family
DX: M51.16 Intervertebral disc disorders with radiculopathy, lumbar region (principal); Z73.89 Other problems related to life management difficulty
CPT/HCPCS: 99212; G0463

== ENCOUNTER 2024-11-30 10:56 | Day surgery (SDC) | payer MEDICARE, SELFPAY ==
[2024-11-30 11:25] VITALS: BP 163/80; PULSE 66; RESP 18; O2SAT 95; BMI 28.1
--- NOTE | 2024-11-30 11:40 | EXP.PAIN.PRO ---
Procedure Date: 11/30/24 Time: 11:32 Anesthesiologist:: Ld Leon CRNA Complications:: None Pre-procedure Diagnosis:: Degenerative disc lumbar spine multilevels. Lumbar radiculopathy. Post-procedure Diagnosis:: Same. Indications for Procedure:: Patient is a pleasant 74-year-old female who comes our clinic today for lumbar epidural steroid injection. Patient describes low lumbar back pain. Bilateral hip and leg radicular symptoms at times. She rates her pain 6/10. Procedure Details:: Procedure: Lumbar epidural steroid injection under fluoroscopy Informed consent was obtained and the risks and benefits of the procedure were explained to the patient. The patient was taken to the procedure room and noninvasive monitors placed, including noninvasive blood pressure cuff and pulse oximeter. The back was viewed using C-arm Fluoroscopy and prepped using Chloraprep as a cleansing solution and the L4-L5 interspace was palpated. Skin and subcutaneous tissues were anesthetized using lidocaine 1.5% and a 25-gauge needle. After this, an 18-gauge Touhy epidural needle was placed into the L4-L5 interspace and advanced using fluoroscopic guidance and loss of resistance to air until the epidural space was encountered. After confirmation of needle placement in the epidural space, with dye, a solution containing normal saline, 3 mL and Depo-Medrol 80 mg were incrementally injected into the lumbar epidural space. The patient tolerated the procedure well with no complications. The patient was observed in the Pain Clinic and then discharged home neurologically intact. Plan and Disposition:: Patient was discharged without incident.
[2024-11-30 11:44] VITALS: BP 180/84; PULSE 69; RESP 17; O2SAT 98
[2024-11-30 12:38] VITALS: BP 191/85; PULSE 70; RESP 18; O2SAT 92
[2024-11-30] MEDS: methylPREDNISolone ACETATE 80MG/ML VIAL 80 MG (12:38)
[2024-11-30 12:39] VITALS: BP 191/85; PULSE 70; RESP 18; O2SAT 92
== END 2024-11-30 11:44 | disposition home or self-care (01) ==
PROVIDERS: PCP Nurse Practitioner Family; Visit Provider Nurse Anesthetist, Certified Registered
DX: M51.16 Intervertebral disc disorders with radiculopathy, lumbar region (principal)
CPT/HCPCS: 62323; J1010

== ENCOUNTER 2024-12-15 11:28 | Outpatient (POV) | payer MEDICARE, SELFPAY ==
--- NOTE | 2024-12-15 12:09 | A.OFFVIS_ITS ---
[facility] Disclaimer: The information contained in this section may have been updated after the patient was seen, as this information can be updated by other users. Medical History History of colitis History of renal cell cancer Edema of both lower extremities HLD (hyperlipidemia) HTN (hypertension) Family history of chronic ischemic heart disease Surgical History Surgical history unknown History of nephrectomy Family History Other Unknown family medical history Social History Smoking Status: Never smoker alcohol intake: never current occupational status: other Travel in the last 8 weeks: None PM Subjective & Objective Subjective Subjective:: Patient is a pleasant 74-year-old female who presents today for follow-up of lumbar epidural steroid injection L4-L5 on 11/30/2024. Patient rates her pain today a 6 out of 10. Patient does state this pain is all related to her low b ack as well as her bilateral knees. She does state that she did get improvement from her epidural however felt like it did not work as well as her last 1 providing improvement for longer period of time. Patient states she does feel like it is already started to wear off. She does state her knees continue to be a source of pain and denies any prior replacement history. We did discuss at her last appointment about proceeding forward with possible intra-articular joint injections. Patient does state that she is interested in this option as they do interfere with her ability perform activities of daily living such as cooking and cleaning. Patient does state that she just feels like they are weaker when she is up walking and moving. Patient is prescribed compounded cream and baclofen 10 mg 3 times a day from our office. She denies any side effects from this medication. She was just given a 3-month supply of the baclofen and does not need refills. Her Doom has been reviewed and is appropriate. Review of Systems: General: No recent weight changes, no fever, no sleep disturbances Respiratory: No cough, no shortness of air, no recurring pulmonary infections Cardiovascular/peripheral vascular: No chest pain, no palpitations, no edema, no shortness of breath Gastrointestinal: No new onset incontinence, normal bowel movements reported Genitourinary: No new onset incontinence Musculoskeletal: Low back pain, bilateral knee pain Psychiatric: [Normal mood/affect] Neurological: [Denies weakness in extremities], [denies balance issues] Pain at rest (0-10 scale): 6 Objective Objective:: Physical Exam: General: Alert and oriented x3, no acute distress, pleasant and cooperative Lungs: Respirations even and unlabored, symmetrical chest expansion Eyes: PERRL Musculoskeletal: Flexion and extension of bilateral knees somewhat guarded secondary to pain, [antalgic gait noted] Neurological: Speech clear, no gross sensory deficit Has patient had previous pain injection?: Yes Percent improvement in pain since last injection: Temporary Conservative treatment options previously tried: Home exercise plan Length of treatment: Longer than 12 weeks Meds Home Medications and Allergies Home Medications ?Medication ?Instructions ?Recorded ?Confirmed ?Type loratadine 10 mg tablet 10 mg PO DAILY 07/17/23 11/17/24 History simvastatin 40 mg tablet 40 mg PO DAILY 07/17/23 11/17/24 History felodipine 10 mg tablet,extended 10 mg PO DAILY 08/13/23 11/17/24 History release 24 hr ibandronate 150 mg tablet 150 mg PO QMONTH 11/13/23 11/17/24 History losartan 100 mg tablet See Rx Instructions .Route 12/10/23 11/17/24 Rx .COMPLEX #90 tabs potassium chloride 10 mEq 10 meq PO DAILY 12/30/23 11/17/24 History tablet,extended release carvedilol 12.5 mg tablet See Rx Instructions .Route 03/08/24 11/17/24 Rx .COMPLEX #60 tabs prednisone 20 mg tablet 20 mg PO BID #10 tabs 07/21/24 11/17/24 Rx baclofen 5 mg tablet 5 mg PO TID #90 tabs 09/01/24 11/17/24 Rx baclofen 10 mg tablet 10 mg PO TID #90 tabs 11/17/24 Rx New Prescriptions to Start Prescriptions: Allergies Allergy/AdvReac Type Severity Reaction Status Date / Time No Known Allergies Allergy Verified 07/08/24 10:24 Assessment and Plan *Assessment and plan (1) Osteoarthritis of right knee: Status: Acute Qualifiers: Osteoarthritis type: primary Qualified Code(s): M17.11 - Unilateral primary osteoarthritis, right knee Category: Medical Code(s): M17.11 - Unilateral primary osteoarthritis, right knee (2) Osteoarthritis of left knee: Status: Acute Qualifiers: Osteoarthritis type: primary Qualified Code(s): M17.12 - Unilateral primary osteoarthritis, left knee Category: Medical Code(s): M17.12 - Unilateral primary osteoarthritis, left knee Plan Patient is experiencing worsening pain in her bilateral knees with limited range of motion. Patient does have a history of osteoarthritis bilaterally. I did review over the risk and benefits of bilateral knee intra-articular injections and she would like to proceed forward with this plan of care. Patient has tried and failed conservative therapy including continued at home stretching exercise that was physician guided for longer than 12 weeks. Patient will be scheduled for bilateral intra-articular knee injections. These will be done without fluoroscopic or ultrasound guidance. Patient has been instructed to contact the clinic with any concerns before the next appointment. Dr. Amezquita has reviewed this note and agrees with this plan of care. This note was dictated using voice recognition software and make contain errors or omissions. All injections are used with Lidocaine, Bupivacaine and Depo Medrol. Occasionally urine drug screen is needed to verify patient's compliance with our office pain contract. This is ordered based off specific treatments related to chronic pain with the potential to abuse certain medications.
[2024-12-15 14:32] VITALS: BP 119/60; PULSE 61; RESP 18; O2SAT 97; BMI 28.1
== END 2024-12-15 23:59 | disposition home or self-care (01) ==
LOC: SC.PAIN 11:29
PROVIDERS: PCP Nurse Practitioner Family; Visit Provider Nurse Practitioner Family
DX: M17.0 Bilateral primary osteoarthritis of knee (principal); Z73.89 Other problems related to life management difficulty
CPT/HCPCS: 99212; G0463

== ENCOUNTER 2025-01-04 11:22 | Outpatient (POV) | payer MEDICARE, SELFPAY ==
[2025-01-04 11:31] VITALS: BP 174/82; PULSE 66; RESP 16; TEMP 36.6; O2SAT 99; BMI 28.1
[2025-01-04 11:53] VITALS: BP 167/89; PULSE 68; RESP 16; O2SAT 95
[2025-01-04] MEDS: methylPREDNISolone ACETATE 80MG/ML VIAL 80 MG (11:53)
[2025-01-04] MEDS: BUPIVACAINE 0.25% 10ML INJ 25 MG IJ (11:53)
[2025-01-04] MEDS: LIDOCAINE 1% 5ML PF VIAL 5 ML (11:53)
[2025-01-04 11:55] VITALS: BP 167/89; PULSE 68; RESP 18; O2SAT 95
--- NOTE | 2025-01-04 11:58 | P.PCN_ITS ---
Procedure Date: 01/04/25 Time: 11:40 Anesthesiologist:: Ld Leon CRNA Complications:: None Pre-procedure Diagnosis:: DJD bilateral knee. Chronic bilateral knee pain. Post-procedure Diagnosis:: Same. Indications for Procedure:: Patient is a pleasant 74-year-old female who comes our clinic today for bilateral intra-articular knee injections of cortisone and local anesthetic. Patient describes bilateral knee pain as constant, dull, aching. She reports pain intensifies with ambulation and/or standing. Stairs also increase pain bilaterally. Procedure Details:: Details of the procedure explained to the patient. The patient taken procedure room placed in the sitting position. The over the left knee was cleaned using chlorhexidine as a cleansing solution. Using a 22-gauge inch and half needle the left knee joint was accessed from the anterior lateral position. After negative aspiration 4 cc of 1% lidocaine +4 cc of 0.25% Marcaine and 40 mg of Depo-Medrol was injected. Patient tolerated procedure without difficulty. Ther e are no complications. Details of the procedure explained to the patient. The patient taken procedure room placed in the sitting position. The over the right knee was cleaned using chlorhexidine as a cleansing solution. Using a 22-gauge inch and half needle the right knee joint was accessed from the anterior lateral position. After negative aspiration 4 cc of 1% lidocaine +4 cc of 0.25% Marcaine and 40 mg of Depo-Medrol was injected. Patient tolerated procedure without difficulty. There are no complications. Plan and Disposition:: Patient was discharged without incident.
[2025-01-04 12:02] VITALS: BP 175/84; PULSE 67; RESP 16; O2SAT 96
== END 2025-01-04 12:02 | disposition home or self-care (01) ==
PROVIDERS: PCP Nurse Practitioner Family; Visit Provider Nurse Anesthetist, Certified Registered
DX: M17.0 Bilateral primary osteoarthritis of knee (principal); M25.561 Pain in right knee; M25.562 Pain in left knee; G89.29 Other chronic pain
CPT/HCPCS: 20610; J1010

== ENCOUNTER 2025-01-20 14:59 | Outpatient (POV) | payer MEDICARE, SELFPAY ==
[2025-01-20 15:10] VITALS: BP 117/74; PULSE 68; RESP 14; O2SAT 95; BMI 28.1
--- NOTE | 2025-01-20 15:23 | EXP.PAIN.SOA ---
[facility] Disclaimer: The information contained in this section may have been updated after the patient was seen, as this information can be updated by other users. Medical History History of colitis History of renal cell cancer Edema of both lower extremities HLD (hyperlipidemia) HTN (hypertension) Family history of chronic ischemic heart disease Surgical History Surgical history unknown History of nephrectomy Family History Other Unknown family medical history Social History Smoking Status: Never smoker alcohol intake: never current occupational status: other Travel in the last 8 weeks: None PM Subjective & Objective Subjective Subjective:: Patient is a pleasant 74-year-old female who presents today for follow-up of bilateral intra-articular knee injections from 2024. Today she rates her pain a 7 out of 10. She denies any new trauma or injury. She does state that she has had worsening pain in her bilateral knees and felt like the injections only provided about a day of relief. She states she is back to her baseline and states the pain is fairly constant. She does state that it does interfere with her ability to perform activities of daily living such as cooking and cleaning. Patient has tried compounded cream from our office however did not notice significant relief. Patient is managed with baclofen 10 mg 3 times a day and states this does still seem to really help ease down some of her back pain. Patient is interested in in any additional options for her bilateral knee pain as it is interfering with her daily activities. Her Domo has been reviewed and is appropriate. Review of Systems: General: No recent weight changes, no fever, no sleep disturbances Respiratory: No cough, no shortness of air, no recurring pulmonary infections Cardiovascular/peripheral vascular: No chest pain, no palpitations, no edema, no shortness of breath Gastrointestinal: No new onset incontinence, normal bowel movements reported Genitourinary: No new onset incontinence Musculoskeletal: Bilateral knee pain Psychiatric: [Normal mood/affect] Neurological: [Denies weakness in extremities], [denies balance issues] Pain at rest (0-10 scale): 7 Objective Objective:: Physical Exam: General: Alert and oriented x3, no acute distress, pleasant and cooperative Lungs: Respirations even and unlabored, symmetrical chest expansion Eyes: PERRL Musculoskeletal: Flexion and extension of bilateral knees somewhat guarded secondary to pain, [antalgic gait noted] Neurological: Speech clear, no gross sensory deficit Has patient had previous pain injection?: Yes Percent improvement in pain since last injection: Very temporary lasting 1 day Conservative treatment options previously tried: Home exercise plan Length of treatment: Longer than 12 weeks Meds Home Medications and Allergies Home Medications ?Medication ?Instructions ?Recorded ?Confirmed ?Type loratadine 10 mg tablet 10 mg PO DAILY 07/17/23 01/20/25 History simvastatin 40 mg tablet 40 mg PO DAILY 07/17/23 01/20/25 History felodipine 10 mg tablet,extended 10 mg PO DAILY 08/13/23 01/20/25 History release 24 hr ibandronate 150 mg tablet 150 mg PO QMONTH 11/13/23 01/20/25 History losartan 100 mg tablet See Rx Instructions .Route 12/10/23 01/20/25 Rx .COMPLEX #90 tabs potassium chloride 10 mEq 10 meq PO DAILY 12/30/23 01/20/25 History tablet,extended release baclofen 10 mg tablet 10 mg PO TID #90 tabs 11/17/24 01/20/25 Rx carvedilol 25 mg tablet 25 mg PO BID #180 tabs 01/13/25 01/20/25 Rx New Prescriptions to Start Prescriptions: Allergies Allergy/AdvReac Type Severity Reaction Status Date / Time No Known Allergies Allergy Verified 01/13/25 09:46 Assessment and Plan *Assessment and plan (1) Osteoarthritis of right knee: Status: Acute Qualifiers: Osteoarthritis type: primary Qualified Code(s): M17.11 - Unilateral primary osteoarthritis, right knee Category: Medical Code(s): M17.11 - Unilateral primary osteoarthritis, right knee (2) Osteoarthritis of left knee: Status: Acute Qualifiers: Osteoarthritis type: primary Qualified Code(s): M17.12 - Unilateral primary osteoarthritis, left knee Category: Medical Code(s): M17.12 - Unilateral primary osteoarthritis, left knee Plan Patient continues to experience significant pain in her bilateral knees with very limited range of motion. I did discuss at length with the patient due to her only getting very temporary relief with the intra-articular injections that we could try infrapatellar nerve block. I did also discuss that if that does not provide longer lasting relief there is always the option of a spinal cord stimulator and that we can follow-up with this in future. Patient is trying to avoid having to have bilateral knee replacements. Risk and benefits of the infrapatellar nerve blocks were explained to the patient and she would like to proceed forward with this plan of care. Patient has tried and failed conservative therapy including continued at home stretching exercise for longer than 12 weeks in between injections. I will make sure she does have refills on her baclofen. Patient will be scheduled for bilateral infrapatellar nerve blocks. These will be done without fluoroscopic or ultrasound guidance. Patient has been instructed to contact the clinic with any concerns before the next appointment. Dr. Amezquita has reviewed this note and agrees with this plan of care. This note was dictated using voice recognition software and make contain errors or omissions. All injections are used with Lidocaine, Bupivacaine and Depo Medrol. Occasionally urine drug screen is needed to verify patient's compliance with our office pain contract. This is ordered based off specific treatments related to chronic pain with the potential to abuse certain medications.
== END 2025-01-20 23:59 | disposition home or self-care (01) ==
PROVIDERS: PCP Nurse Practitioner Family; Visit Provider Nurse Practitioner Family
DX: M17.0 Bilateral primary osteoarthritis of knee (principal); Z73.89 Other problems related to life management difficulty
CPT/HCPCS: 99212; G0463

== ENCOUNTER 2025-02-15 13:53 | Day surgery (SDC) | payer MEDICARE, SELFPAY ==
[2025-02-15 14:11] VITALS: BP 149/80; PULSE 64; RESP 18; TEMP 37; O2SAT 98; BMI 28.3
--- NOTE | 2025-02-15 14:39 | P.PCN_ITS ---
Procedure Date: 02/15/25 Time: 14:35 Anesthesiologist:: Ld Leon CRNA Complications:: None Pre-procedure Diagnosis:: DJD bilateral knee. Chronic bilateral knee pain. Post-procedure Diagnosis:: Same. Indications for Procedure:: Patient is a very pleasant 74-year-old female who comes our clinic today for bilateral infrapatellar nerve blocks. Patient describes bilateral knee pain as constant, dull, aching. She rates her pain 8/10. Patient has had minimal success with intra-articular knee injections of cortisone and local anesthetic. Procedure Details:: Details of the procedure were explained to the patient. The patient taken pr [facility] room placed in the sitting position. The area over the bilateral knees was cleaned using chlorhexidine as a cleansing solution. Using a 25-gauge inch and half needle the left infrapatellar nerve was accessed with ease. After negative aspiration 6 cc of 1% lidocaine and 20 mg of Depo-Medrol was injected. The same procedure was carried out in the right infrapatellar nerve. Patient tolerated procedure without difficulty. There are no complications. Plan and Disposition:: Patient was discharged without incident.
[2025-02-15 14:41] VITALS: BP 149/82; PULSE 63; RESP 18; O2SAT 97
[2025-02-15] MEDS: BUPIVACAINE 0.25% 10ML INJ 25 MG IJ (14:44)
[2025-02-15] MEDS: LIDOCAINE 1% 5ML PF VIAL 5 ML (14:44)
[2025-02-15 14:49] VITALS: BP 149/80; PULSE 64; RESP 18; O2SAT 98
[2025-02-15 14:51] VITALS: BP 149/80; PULSE 64; RESP 18; O2SAT 98
== END 2025-02-15 14:41 | disposition home or self-care (01) ==
PROVIDERS: PCP Nurse Practitioner Family; Visit Provider Nurse Anesthetist, Certified Registered
DX: M17.0 Bilateral primary osteoarthritis of knee (principal); M25.561 Pain in right knee; M25.562 Pain in left knee; G89.29 Other chronic pain
CPT/HCPCS: 64450; J1010

== ENCOUNTER 2025-02-28 10:49 | Outpatient (POV) | payer MEDICARE, SELFPAY ==
[2025-02-28 11:18] VITALS: BP 140/88; PULSE 63; RESP 14; O2SAT 95; BMI 28.1
--- NOTE | 2025-02-28 11:57 | A.OFFVIS_ITS ---
[facility] Disclaimer: The information contained in this section may have been updated after the patient was seen, as this information can be updated by other users. Medical History History of colitis History of renal cell cancer Edema of both lower extremities HLD (hyperlipidemia) HTN (hypertension) Family history of chronic ischemic heart disease Surgical History Surgical history unknown History of nephrectomy Family History Other Unknown family medical history Social History Smoking Status: Never smoker alcohol intake: never current occupational status: other Travel in the last 8 weeks: None PM Subjective & Objective Subjective Subjective:: Patient is a pleasant 74-year-old female who presents today for follow-up of bilateral infrapatellar nerve blocks on 02/15/2025. She denies any new trauma or injury. She States that she did have at least 50% improvement following these injections and feels like that she is able to stand a little bit easier with the overall knee pain for longer periods of time. She does however rate her pain today is 7 out of 10 and states that is more related to her low back that does radiate down primarily the left leg with numbness and tingling as well as swelling. She does state that she feels like her previous back injection has officially worn off and is interfering with her ability to perform activities of daily living such as cooking and cleaning. Patient is currently managed with baclofen 10 mg 3 times a day. She denies any side effects and states it does still seem to help. Her Domo has been reviewed and is appropriate. Review of Systems: General: No recent weight changes, no fever, no sleep disturbances Respiratory: No cough, no shortness of air, no recurring pulmonary infections Cardiovascular/peripheral vascular: No chest pain, no palpitations, no edema, no shortness of breath Gastrointestinal: No new onset incontinence, normal bowel movements reported Genitourinary: No new onset incontinence Musculoskeletal: Low back pain, left leg pain swelling Psychiatric: [Normal mood/affect] Neurological: [Denies weakness in extremities], [denies balance issues] Pain at rest (0-10 scale): 7 Objective Objective:: Physical Exam: General: Alert and oriented x3, no acute distress, pleasant and cooperative Lungs: Respirations even and unlabored, symmetrical chest expansion Eyes: PERRL Musculoskeletal: Flexion and extension of lumbar [spine] somewhat guarded secondary to pain, [antalgic gait noted] positive left leg raise Neurological: Speech clear, no gross sensory deficit Has patient had previous pain injection?: Yes Percent improvement in pain since last injection: 50% Conservative treatment options previously tried: Home exercise plan Length of treatment: Longer than 12 weeks Meds Home Medications and Allergies Home Medications ?Medication ?Instructions ?Recorded ?Confirmed ?Type loratadine 10 mg tablet 10 mg PO DAILY 07/17/23 02/28/25 History simvastatin 40 mg tablet 40 mg PO DAILY 07/17/23 02/28/25 History felodipine 10 mg tablet,extended 10 mg PO DAILY 08/13/23 02/28/25 History release 24 hr ibandronate 150 mg tablet 150 mg PO QMONTH 11/13/23 02/28/25 History potassium chloride 10 mEq 10 meq PO DAILY 12/30/23 02/28/25 History tablet,extended release carvedilol 25 mg tablet 25 mg PO BID #180 tabs 01/13/25 02/28/25 Rx baclofen 10 mg tablet 10 mg PO TID #90 tabs 01/20/25 02/28/25 Rx losartan 100 mg tablet See Rx Instructions .Route 02/28/25 02/28/25 Rx .COMPLEX #90 tabs New Prescriptions to Start Prescriptions: Allergies Allergy/AdvReac Type Severity Reaction Status Date / Time No Known Allergies Allergy Verified 02/15/25 14:11 Assessment and Plan *Assessment and plan (1) Lumbar radiculopathy: Status: Acute Category: Medical Code(s): M54.16 - Radiculopathy, lumbar region (2) Degenerative disc disease, lumbar: Status: Acute Category: Medical Code(s): M51.369 - Other intervertebral disc degeneration, lumbar region without mention of lumbar back pain or lower extremity pain Plan Patient is experiencing worsening pain in her low back with numbness and tingling into her left lower leg. Patient did have limited range of motion of her lumbar spine with a positive leg raise. I did discuss with patient that I do believe they would benefit from a lumbar epidural steroid injection. Risk and benefits were discussed with patient and the patient would like to proceed forward with this plan of care. Patient is not on any blood thinners. Patient has tried and failed conservative therapy including continued at home stretching exercise for longer than 12 weeks between injections. Patient did previously jain ve a lumbar epidural back in November that provided 50% relief and lasted longer than 3 months. Patient has had chronic back pain for years. We will schedule the patient for an LESI L4-L5 under fluoroscopy. Patient has been instructed to contact the clinic with any concerns before the next appointment. Dr. Amezquita has reviewed this note and agrees with this plan of care. This note was dictated using voice recognition software and make contain errors or omissions. All injections are used with Lidocaine, Bupivacaine and Depo Medrol. Occasionally urine drug screen is needed to verify patient's compliance with our office pain contract. This is ordered based off specific treatments related to chronic pain with the potential to abuse certain medications.
== END 2025-02-28 23:59 | disposition home or self-care (01) ==
LOC: SC.PAIN 10:50
PROVIDERS: PCP Nurse Practitioner Family; Visit Provider Nurse Practitioner Family
DX: M51.16 Intervertebral disc disorders with radiculopathy, lumbar region (principal); Z73.89 Other problems related to life management difficulty
CPT/HCPCS: 99212; G0463

== ENCOUNTER 2025-04-20 13:46 | Outpatient (RCR) | payer MEDICARE, SELFPAY ==
--- NOTE | 2025-04-20 14:57 | HMH.PTOPEV ---
PT Outpatient Evaluation Rehab PT Outpatient Evaluation Start: 04/20/25 13:58 Freq: Status: Active Protocol: Document 04/20/25 13:58 ANNABEL (Rec: 04/20/25 14:57 ANNABEL [id number]) E-signed By Alpesh Pittman, PT Outpatient Therapy Subjective History Subjective History Pt is a 75 yom who is referred to [facility] outpatient PT with complaints of chronic low back pain. The pt reports that she has been having low back pain for several years and it has recently worsened. She denies pain that radiates to her lower extremities. Pt reports that she has recently began receiving lumbar spine injections which has helped her pain some. Pt reports that she cannot carry anything, she has immediate pain upon standing and cannot walk at all without increasing her pain. Pt reports frequent falls. She lives alone. She has 0 stairs in her home or to enter home. Denies using an assistive device. PMH: Htn, 1 Kidney, Seasonal Allergies New diagnosis of No cancer in past 12 months? Chief Complaint Pain,Stiff Symptom Type Ache Symptoms Relieved By Rest/Positioning,Ice,OTC Meds Symptoms Aggravated Prone,Standing,Walking,Lifting By Prior Functional None Limitations Current Functional Lifting,Standing,Walking,Stairs Limitations Symptom Description Constant but Variable,Activity Dependent Level of pain today 8 (0-10) Pain scale - at its 2 best (0-10) Pain scale - at its 10 worst (0-10) Lumbopelvic Eval Posture Thoracic Spine Neutral Posture Standing Position Lumbar Spine Posture Flexed Standing Position Assistive device Assistive Devices None / NA Gait Observation General Gait Pattern Antalgic Gait,Wide Based Gait,Hips Posterior to SAHARA Observation Palapation tenderness bilateral lumbar spinal Yes: L3-L5 TTP 4/4 tenderness paraspinal Yes: L3-L5 TTP 3/4 tenderness Lumbar/Sacral Tenderness,Trigger Point Palpation Findings Accessory Movement L3 bilateral L4 bilateral L5 bilateral Range of Motion Lumbar Spine Active 100% Flexion Range of Motion (degrees) Lumbar Spine Active 0% Extension Range of Motion (degrees) Left Lumbar Spine 25% Lateral Flexion Active Range of Motion (degrees) Right Lumbar Spine 25% Lateral Flexion Active Range of Motion (degrees) Lumbar Spine ROM Soft Tissue Tightness,Pain Limitations Manual Muscle Test Bilateral Knee Extension 3 Fair Strength Grade Knee Flexion 3+ Fair+ Strength Grade Hip Flexion Strength 3 Fair Grade Hip Abduction 2 Poor Strength Grade Hip Adduction 2 Poor Strength Grade Hip Extension 2 Poor Strength Grade Extensor Hallucis 4 Good Longus Strength Grade Ankle Dorsiflexion 4 Good Strength Grade Gastronemius/Soleus 4 Good Strength Grade DTR Rt Patellar 2+ Lt Patellar 2+ Rt Gastroc/Soleus 2+ Lt Gastroc/Soleus 2+ Altered Sensation Bilateral Comment Intact to LT globally Special Tests Lumbar Spine Screen Positive Forward Bending Test Negative Left,Negative Right - Standing Hip Sitting Root Negative Left,Negative Right Test Forward Bending Test Negative Left,Negative Right - Sitting Hip Scouring ( Positive Left,Positive Right Quadrant) Test Sciatic Nerve Negative Left,Negative Right Tension Test Crossed Straight Leg Negative Left,Negative Right Raise Test Sacroiliac Joint Negative Left,Negative Right Compression Test Sacroiliac Joint Negative Left,Negative Right Distraction Test Lumbar [place] Negative Distraction Test/ Manual Traction Oswestry Index Section 1 Pain Intensity The pain comes and goes and is severe Section 2 Personal Care ( increase the pain, but I manage not to change my way of Washing,[place]) doing it Section 3 Lifting I can only lift very light weights at most Section 4 Walking I cannot walk at all without increasing pain Section 5 Sitting I can sit in my favorite chair for as long as I like Section 6 Standing I avoid standing because it increases the pain immediately Section 7 Sleeping Because of my pain, my normal night's sleep is less than 4 hours Section 8 Social Life I hardly have any social life because of pain Section 9 Traveling Pain restricts me to short necessary journeys under 30 minutes Section 10 Changing Degreee of My pain is gradually getting worse Pain Score and Risk Level Oswestry Sc 38 Oswestry Risk Level Completely Disabled Miscellaneous Dx PT Eval Objective Objective FT EO: 30s TS: Unable to intiate B/L Outpatient Therapy Assessment Impairments Problems/ Palpation Tenderness,Impaired Range of Motion,Impaired Impairmments Strength,Impaired Gait Pattern,Impaired Walking, Impaired Standing,Impaired Household Care,Impaired Balance,Subjective C/O Pain Prognosis Rehab Potential Fair Clinical Impression Consistent with Yes Diagnosis Consistent with Lumbago (M54.50) Short Term Goals Number of Weeks 4 Decreased Palpation Yes: 2-3/4 to TTP Assessment above Tenderness Increase Range of Yes: 25-50% WNL Lumbar Extension Motion Increase Strength Yes: 3/5 to B LEs globally Increase Ability to Yes: 10 minutes without increasing pain Walk Increase Ability to Yes: 10 minutes without increasing pain Stand Improve Balance Yes: TS on even surface for 30s Improve Oswestry Yes: <30 Score Decrease Subjective Yes: 5/10 with above assessment C/O Pain Patient to be Ind w/ Yes HEP In School Suspension Coordinator Goals Number of Weeks 8 Decreased Palpation Yes: 0-/4 to TTP assessment above Tenderness Increase Range of Yes: 50-75% WNL Lumbar Extension Motion Increase Strength Yes: 02/12 to B LEs Globally Improve Gait Pattern Yes: Upright posture during gait, narrow SAHARA without Assistive Device Increase Ability to Yes: 30 minutes without increasing symptoms Walk Increase Ability to Yes: 30 minutes without increasing symptoms Stand Restore Ability to Yes: 10# without increasing pain and with proper Lift Objects to lifting mechanics Waist Level Improve Balance Yes: TS on uneven surface for 30s Improve Oswestry Yes: <24 Score Decrease Subjective Yes: 2-310 with above assessment C/O Pain Patient to be Ind w/ Yes Advanced HEP Outpatient Therapy Plan of Care Treatment Plan May Include Therapeutic Exercise Yes Including Home Exercise Program Manual Therapy Yes Techniques Neuromuscular Re- Yes education Therapeutic Yes Activities to Return to Previous Functional/Work Level Gait Training Yes ADL/Self Care Yes Education Thermal Modalities Yes Electrical Yes Stimulation Iontophoresis Yes Manual Lymphatic Yes Drainage Eval/Re-Eval Yes Frequency Times per week 2 Duration Number of Weeks 8 Addendums This patient is a No candidate for social or vocational rehab ? Patient/Guardian Yes verbally acknowledges understanding of treatment program and consents to further treatment? Patient/Guardian Yes verbally acknowledges understanding of diagnosis, prognosis and goals for treatment? Eval Complexity PT Charges 44294 - Moderate Complexity Shoulder/Elbow Eval Shoulder Objective Measurements Elbow Objective Measurements PHYSICIAN CERTIFICATION: I certify the specified therapy services for Alexa Mi are required, authorized, and reviewed every 30 days.
== END 2025-04-20 23:59 | disposition home or self-care (01) ==
LOC: PT 13:46
PROVIDERS: Visit Provider Nurse Practitioner Family
DX: M54.16 Radiculopathy, lumbar region (principal); M54.50 Low back pain, unspecified; G89.29 Other chronic pain
CPT/HCPCS: 97162

== ENCOUNTER 2025-05-05 13:04 | Outpatient (POV) | payer MEDICARE, SELFPAY ==
--- OUTSIDE RECORDS SUMMARY | 2025-05-05 13:11 | XMS_ITS | Clinical Summary ---
Author Organization [facility] Address [address] [place] [address] Care Team Providers Care Inspector Casing Name Role Phone Maci Driscoll PAUL Primary Care Provider [phone] Allergies No known active allergies Medications carvediloL (COREG) 3.125 MG tablet Take 3.125 mg by mouth 2 (two) times daily. 08/09/2022 Active lisinopriL (PRINIVIL,ZESTRI L) 40 MG tablet Take 40 mg by mouth daily. 08/09/2022 Active simvastatin (ZOCOR) 40 MG tablet Take 40 mg by mouth daily. 08/31/2022 Active potassium chloride (KLOR-CON-M) 10 MEQ CR tablet Take 10 mEq by mouth daily. 08/31/2022 Active felodipine (PLENDIL) 10 MG 24 hr tablet Take 10 mg by mouth daily. 08/09/2022 Active ibandronate (BONIVA) 150 mg tablet Take by mouth. 09/22/2022 Active hydroCHLOROthiaz alvarado (HYDRODIURIL) 12.5 MG tablet Take 12.5 mg by mouth daily. Active calcium carbonate (OS-MELANIE) 600 mg calcium (1,500 mg) Tab Take 600 mg by mouth daily. Active loratadine (CLARITIN) 10 mg tablet Take 10 mg by mouth as needed for Allergies. Active Social History Tobacco Use Types Packs/Day Years Used Date Smoking Tobacco: Never Smokeless Tobacco: Never Alcohol Use Standard Drinks/Week Comments Never 0 (1 standard drink = 0.6 oz pur e alcohol) Interpersonal Safety Answer Date Record ed Family or friends hurt you Not on file 11/27 Family or friends insult you Not on file Family or friends threaten you Not on file 0 11/27/2023 Family or friends scream or curse at you Not on file 11/27/2023 Housing Stability Answer Date Recorded Living situation today Not on file Living situation problems Not on file 2023 Food Insecurity Answer Date Recorded Food run out past 12 months Not on file 11/10 Food did not last past 12 months Not on file 11/27/2023 Employment Answer Date Recorded Help finding and keeping a job Not on file 0 11/27/2023 Family and Community Support Answer Donnie e Recorded Help with Day to Day Activities Not on file 11/27/2023 Feeling Lonely or Isolated Not on file 11/27 Educational Attainment Answer Date Tom rded Speak language other than Bhutanese at home Not on file 11/27/2023 Want help with school or training Not on file 11/27/2023 Depression Answer Date Recorded PHQ-2 Risk Not on file 11/27/2023 Disabilities Answer Date Recorded Difficulty concentrating Not on file 024 Difficulty doing errands alone Not on file 0 11/27/2023 Substance Use Answer Date Recorded Used prescription meds for non-medical reasons N ot on file 11/27/2023 Used illegal drugs past 12 months Not on file 11/27/2023 Comments Unknown Sex and Gender Information Value Date Recorded Sex Assigned at Not on file Legal Sex Female 5:36 PM CDT Gender Identity Not on file Sexual Orientation Not on file Last Filed Vital Signs Vital Sign Reading Time Taken Comments Blood Pressure 108/65 09/23/2022 11:36 AM EST Pulse 77 09/23/2022 11:36 AM EST Temperature 36.4 C (97.6 F) 09/23/2022 11:19 AM EST Respiratory Rate 16 09/23/2022 11:36 AM EST Oxygen Saturation 97% 09/23/2022 11:36 AM EST Room air Inhaled Oxygen Concentration - - Weight 80.1 kg (176 lb 9.6 oz) 09/23/2022 10:30 AM EST Height 170.2 cm (5' 7 ) 09/23/2022 10:30 AM EST Body Mass Index 27.66 09/23/2022 10:30 AM EST Plan of Treatment Health Maintenance Due Date Last Done Comments CT Colonography 1950 DXA SCAN 1950 FOBT/FIT 1950 Fit-DNA (Cologuard) 1950 Sigmoidoscopy 1950 Depression Screening (12+) 1962 Hepatitis C Screening 1968 DTAP/TDAP/TD VACCINES (1 - Tdap) 1969 Pneumococcal 50+ years (1 of 1 - PCV) 2000 Shingles Vaccine (Zoster) (1 of 2) 2000 Medicare Initial AWV [id number] 11/11/2018 Tobacco Cessation Counseling and Screening (12+) 09/2309/23/2022 COVID-19 VACCINE ( - season) 2024 Falls Risk Screening 11/10/2024 Respiratory Syncytial Virus (RSV) Adult or (1 - 1-dose 75+ series) 2025 Influenza Vaccine (Season Ended) 2025 Colonoscopy 09/23/2032 09/23/2022 Colorectal Cancer Screening 09/23/2032 Insurance [employer] MEDICARE PFFS [employer] MEDICARE PPO Care Teams Inspector Casing Relationship Specialty Start Date End Date Maci Driscoll, PRINTING ROLLER HANDLER [address] [place] [phone] PCP - General Nurse Practitioner 09/23/22
--- OUTSIDE RECORDS SUMMARY | 2025-05-05 13:11 | XMS_ITS | Encounter Summary ---
Author Organization [facility] Address [address] [place] [address] Care Team Providers Care Chaperon Name Role Phone Maci Driscoll APRN Primary Care Provider [phone] Siria Soriano LPN Unavailable Unavailab le Reason for Visit * Reason Comments Med Refill Encounter Details Date Type Department Care Team (Late st Contact Info) Description 02/11/2023 Refill Family and Community Medicine [address] [place] [address] Maci Driscoll APRN [address] [place] [address] Social History Tobacco Use Types Packs/Day Years Used Date Smoking Tobacco: Never Smokeless Tobacco: Never Alcohol Use Standard Drinks/Week Comments Not Currently 0 (1 standard drink = 0.6 oz pur e alcohol) Comments Unknown Sex and Gender Information Value Date Recorded Sex Assigned at Not on file Legal Sex Female 6:25 PM EDT Gender Identity Not on file Sexual Orientation Not on file documented as of this encounter Miscellaneous Notes * Telephone Encounter - Renée Grace - 02/12/2023 2:31 PM EDT documented in this encounter Plan of Treatment Not on file documented as of this encounter Visit Diagnoses Not on filedocumented in this encounter Additional Health Concerns Assessment Noted Time A fall risk assessment has been complete d for the patient 07/25/2022 1:58 PM EDT documented as of this encounter Care Teams Chaperon Relationship Specialty Start Date End Date Maci Driscoll APRN [address] [place] [address] PCP - General 03/23/21 Siria Soriano LPN VALUE-BASED TRANSFORMATION PROGRAM Licensed Practical Nurse 09/22/24 03/21/25 documented as of this encounter
--- OUTSIDE RECORDS SUMMARY | 2025-05-05 13:11 | XMS_ITS ---
Author Organization [facility] Address [address] [place], [place] [id number] Care Team Providers Care Gift Shop Assistant Name Role Phone Maci Driscoll APRN Primary Care Provider Annual Wellness Status:Closed (Closed) Start date:09/22/2024 Enrollment date:09/22/2024 Enrollment reason:Identified using claims or encounter data End date:03/21/2025 Close reason:Patient graduated Continued Care and Services Coordination
--- OUTSIDE RECORDS SUMMARY | 2025-05-05 13:11 | XMS_ITS | Encounter Summary ---
Author Organization [facility] Address [address] [place] [address] Care Team Providers Care Logistical Engineer Name Role Phone Julio Pires FIRST RESPONDER Primary Care Provider [phone] Siria Soriano LPN Unavailable Unavailab le Encounter Details Date Type Department Care Team (Late st Contact Info) Description 10/15/2021 Outside Procedure External Location [address] [place] [address] Julio Pires, FIRST RESPONDER [address] [place] [address] Social History Tobacco Use Types [...] as of this encounter Plan of Treatment Not on file documented as of this encounter Procedures Procedure Name Priority Date/Time Associated Diagnosis Comments MAMMOGRAPHY BREAST SCREENING TOMOSYNTHESIS BILATERAL 10/15/2021 8:24 AM EST documented in this encounter Results * Mammography Breast Screening Tomosynthesis Bilateral (10/15/2021 8:24 AM EST) Anatomical Region Laterality Modality Breast Bilateral Mammography 10/15/2021 8:24 AM EST Narrative 10/15/2021 9:51 AM EST [address] [address] Name: CARLOS MI Exam Date: 10/15/2021 : 1950 Age 71 Gender: F Physician: JULIO PIRES Facility: [facility] Facility HSV: Outpatient Exam: SARAI SCRN MAMMO W/CAD BILAT MAMMOGRAM SCREENING BILATERAL WITH TOMOSYNTHESIS HISTORY: Routine screening exam COMPARISON: September 06, 2020 FINDINGS: Standard views were obtained. There are scattered fibroglandular densities. Benign-appearing calcifications are present. No mass, suspicious calcifications or architectural distortion is present. IMPRESSION: No mammographic evidence of malignancy. BI-RADS 2: Benign RECOMMENDATION: Annual mammography CAD was utilized during interpretation. The patient will be sent a letter from the mammography department with their mammography findings. Dictated By: Malathi Schwab Transcribed By: Malathi Schwab Transcribed On: 10/15/2021 9:39 AM Electronically signed by: Malathi Schwab 10/15/2021 Thank you for referring CARLOS MI to [facility]. Legally authenticated by POPE MALATHI Dewey 2021-10-15 09:39:17 Procedure Note Provider, [facility] - 10/15/2021 [place] [address] Name: CARLOS MI Exam Date: 10/15/2021 : 1950 Age 71 Gender: F Physician: JULIO PIRES Facility: [facility] Facility HSV: Outpatient Exam: SARAI SCRN MAMMO W/CAD BILAT MAMMOGRAM SCREENING BILATERAL WITH TOMOSYNTHESIS HISTORY: Routine screening exam COMPARISON: September 06, 2020 FINDINGS: Standard views were obtained. There are scatteredfibroglandular densities. Benign-appearing calcifications are present. No mass,suspicious calcifications or architectural distortion is present. IMPRESSION: No mammographic evidence of malignancy. BI-RADS 2: Benign RECOMMENDATION: Annual mammography CAD was utilized during interpretation. The patient will be sent a letter from the mammography department withtheir mammography findings. Dictated By: Malathi Schwab Transcribed By: Malathi Schwab Transcribed On: 10/15/2021 9:39 AM Electronically signed by: Malathi Schwab 10/15/2021 Thank you for referring CARLOS MI to [facility]. Legally authenticated by POPE MALATHI Dewey 2021-10-15 09:39:17 us Julio Pires APRN IMG BI PROCEDURES Final Res ult documented in this encounter Visit Diagnoses Not on filedocumented in this encounter Additional Health Concerns Assessment Noted Time A fall risk assessment has been complete d for the patient 07/19/2021 2:12 PM EDT documented as of this encounter Care Teams Logistical Engineer Relationship Specialty Start Date End Date Julio Pires APRN [address] [place] [address] PCP - General 03/23/21 Siria Soriano LPN VALUE-BASED TRANSFORMATION PROGRAM Licensed Practical Nurse 09/22/24 03/21/25 documented as of this encounter
--- OUTSIDE RECORDS SUMMARY | 2025-05-05 13:11 | XMS_ITS | Referral Summary ---
Author Organization [facility] Address [address] [place] [address] Care Team Providers Care Asphalt Surface Heater Operator Name Role Phone Maci Driscoll PAUL Primary Care Provider [phone] Allergies No known active allergies Medications carvediloL [...] Date Tom rded Speak language other than Kosovan at home Not on file 11/27/2023 Want [...] 09/23/2022 10:30 AM EST Plan of Treatment Not on file Insurance [employer] MEDICARE PFFS [employer] MEDICARE PPO Care Teams Asphalt Surface Heater Operator Relationship Specialty Start Date End Date Maci Driscoll, APPRENTICE TECHNICIAN [address] [place] [address] [place] [address] PCP - General Nurse Practitioner 09/23/22
--- OUTSIDE RECORDS SUMMARY | 2025-05-05 13:11 | XMS_ITS | Encounter Summary ---
Author Organization [facility] Address [address] [place] [address] Care Team Providers Care Medical Aide Name Role Phone Julio Pires CUPOLA OPERATOR INSULATION Primary Care Provider [phone] Siria Soriano LPN Unavailable Unavailab le Encounter Details Date Type Department Care Team (Late st Contact Info) Description 06/20/2022 Outside Procedure External Location [address] [place] [address] Julio Pires, CUPOLA OPERATOR INSULATION [address] [place] [address] Social History Tobacco Use Types [...] on file Sexual Orientation Not on file COVID-19 Exposure Response Date Recorded In the last 10 days, have yo u been in contact with someone who was confirmed or suspected to have Coronavirus/COVID-19? No / Unsure 06/20/2022 7:33 AM EDT documented as of this encounter Plan of Treatment Not on file documented as of this encounter Procedures Procedure Name Priority Date/Time Associated Diagnosis Comments XR HIP LEFT 2 OR 3 VIEWS 06/20/2022 8:20 AM EDT documented in this encounter Results * XR Hip Left 2 or 3 Views (06/20/2022 8:20 AM EDT) Anatomical Region Laterality Modality Lower Extremities, Hip Left Radiograp hic Imaging 06/20/2022 8:20 AM EDT Narrative 06/20/2022 9:00 [place] [address] Name: CARLOS MI Exam Date: 06/20/2022 : 1950 Age 72 Gender: F Physician: JULIO PIRES Facility: [facility] Facility HSV: Outpatient Exam: HIP 2 VIEW LT Left hip 2 VIEW HISTORY: Pain. FINDINGS: No evidence of an acute, displaced fracture or dislocation of the visualized bony architecture. The joint spaces appear normal. IMPRESSION: No acute bony abnormality. Dictated By: Mera Smiley Transcribed By: Mera Woody Transcribed On: 06/20/2022 8:48 AM Electronically signed by: Mera Smiley 06/20/2022 Thank you for referring CARLOS MI to [facility]. Legally authenticated by ANEL YE 2022-06-20 08:48:15 Procedure Note Provider, [facility] 06/20/2022 [place] [address] Name: CARLOS MI Exam Date: 06/20/2022 : 1950 Age 72 Gender: F Physician: JULIO PIRES Facility: [facility] Facility HSV: Outpatient Exam: HIP 2 VIEW LT Left hip 2 VIEW HISTORY: Pain. FINDINGS: No evidence of an acute, displaced fracture or dislocation ofthe visualized bony architecture. The joint spaces appear normal. IMPRESSION: No acute bony abnormality. Dictated By: Mera Smiley Transcribed By: Mera Woody Transcribed On: 06/20/2022 8:48 AM Electronically signed by: Mera Smiley 06/20/2022 Thank you for referring CARLOS MI to [facility]. Legally authenticated by ANEL YE 2022-06-20 08:48:15 us Julio Pires APRN IMG XR PROCEDURES Final Res ult documented in this encounter Visit Diagnoses Not on filedocumented in this encounter Additional Health Concerns Assessment Noted Time A fall risk assessment has been complete d for the patient 06/20/2022 7:38 AM EDT documented as of this encounter Care Teams Medical Aide Relationship Specialty Start Date End Date Julio Pires APRN [address] [place] [address] PCP - General 03/23/21 Siria Soriano LPN VALUE-BASED TRANSFORMATION PROGRAM Licensed Practical Nurse 09/22/24 03/21/25 documented as of this encounter
--- OUTSIDE RECORDS SUMMARY | 2025-05-05 13:11 | XMS_ITS | Clinical Summary ---
Author Organization [facility] Address [address] [place] [address] Care Team Providers Care Staff Sonographer Name Role Phone Maci Driscoll APRN Primary Care Provider [phone] Allergies No known active allergies Medications loratadine (Claritin) 10 MG tablet Take 1 tablet (10 mg) by mouth 1 (one) time each day. Active Turmeric 500 MG tablet Take 500 mg by mouth 1 (one) time each day. Active carvedilol (Coreg) 6.25 MG tabletIndications :Benign essential hypertension Take 1 tablet (6.25 mg) by mouth 2 (two) times a day with meals. 180 tablet 3 3 Active potassium chloride CR (Klor-Con) 10 MEQ ER tablet Take 1 tablet (10 mEq) by mouth 1 (one) time each day. Do not crush, chew, or split. 90 tablet 3 4 Active felodipine ER (Plendil) 10 MG 24 hr tabletIndications :Benign essential hypertension Take 1 tablet (10 mg) by mouth 1 (one) time each day. 90 tablet 3 4 Active baclofen (Lioresal) 10 MG tablet Take 1 tablet (10 mg) by mouth 3 (three) times a day. Active losartan (Cozaar) 100 MG tablet Take 1 tablet (100 mg) by mouth 1 (one) time each day. Active carvedilol (Coreg) 12.5 MG tablet Take 1 tablet (12.5 mg) by mouth 2 (two) times a day with meals. 4 Active ibandronate (Boniva) 150 MG tablet Take 1 tablet by mouth once every 4 weeks. Take in morning with full glass of water on an empty stomach. No food, drink, meds, or lying down for 60 minutes after. 3 tablet 3 5 Active simvastatin (Zocor) 40 MG tablet Take 1 tablet (40 mg) by mouth 1 (one) time each day. 90 tablet 2 5 Active Active Problems Problem Noted Date Diagnosed Date Renal cell carcinoma 01/12/2020 DDD (degenerative disc disease), lumbar 10/07/20 17 CAD (coronary artery disease) 01/28/2017 Arthritis 07/22/2016 Benign essential hypertension 02/04/2015 Hyperlipidemia 02/04/2015 Immunizations Immunization Administration Dates Next Due Hep A, Adult 06/10/2019,10/30/2018 Influenza, High-dose, Split Virus, Trivalent, Injectable, preservative free 08/31/2024 Influenza, high-dose, quadrivalent 08/21,09/04/2022,08/02/2020,2018,08/18/2018 Influenza, injectable, quadr ivalent, preservative free 11/09/2021 Influenza, injectable, quadr ivalent, preservative free, pediatric 12/30/2017 Shelly COVID-19 Vaccine (Bl ue Cap) 18+ 09/12/2021,02/14/2021 Moderna Covid-19 Vaccine 12y +, Bautista Protein, Preservative free 09/21/2024,09/11/2023 [facility] COVID-19 Biv alent (Bailey Cap) 12+ years (anais-sucrose) 10/11/2022 Pfizer-BioNTech COVID-19 Vac cine (Purple Cap) 12+ 10/11/2022 Pneumococcal Conjugate PCV 13 08/08/2020, 016 Zoster, live 02/28/2025 Family History Medical History Relation Name Comments Stroke Father Heart attack Mother Relation Name Status Comments Father Mother Social History Tobacco Use Types Packs/Day Years Used Date Smoking Tobacco: Never Passive Smoke Exposure: Past Smokeless Tobacco: Never Alcohol Use Standard Drinks/Week Comments Not Currently 0 (1 standard drink = 0.6 oz pur e alcohol) Humiliation, Afraid, Rape, and Kick questionnair e Answer Date Recorded Within the last year, have y ou been afraid of your partner or ex-partner? No 09/22/2024 Within the last year, have y ou been humiliated or emotionally abused in other ways by your partner or ex-partner? No Within the last year, have y ou been kicked, hit, slapped, or otherwise physically hurt by your partner or ex-partner? No 09/22/2024 Within the last year, have y ou been raped or forced to have any kind of sexual activity by your partner or ex-partner? No 09/22/2024 Social Connection and Isolation Panel Answer Date Recorded In a typical week, how many times do you talk on the phone with family, friends, or neighbors? More than three times a week 09/22/2024 How often do you get togethe r with friends or relatives? More than three times a week 09/22/2024 How often do you attend chur or temple services? Never 09/22/2024 Do you belong to any clubs o r organizations such as adventism groups, unions, fraternal or athletic groups, or school groups? No 09/22/2024 How often do you attend meet ings of the clubs or organizations you belong to? Never 09/22/2024 Are you , , di vorced, , never , or living with a partner? 09/22/2024 AUDIT-C Answer Date Recorded Q1: How often do you have a drink containing alcohol? Never 09/22/2024 Q2: How many drinks containi ng alcohol do you have on a typical day when you are drinking? Patient does not drink Q3: How often do you have si x or more drinks on one occasion? Never 09/22/2024 PHQ-2 Answer Date Recorded Patient Health Questionnaire-2 Score 0 09/28/2024 [facility]ational Stress Questionnaire Answer Date Recorded Do you feel stress - tense, restless, nervous, or anxious, or unable to sleep at night because your mind is troubled all the time - these days? Not at all 09/22/2024 Exercise Vital Sign Answer Date Recorde d On average, how many days pe r week do you engage in moderate to strenuous exercise (like a brisk walk)? 0 days 09/22/2024 On average, how many minutes do you engage in exercise at this level? 0 min 09/22/2024 Hunger Vital Sign Answer Date Recorded Within the past 12 months, y ou worried that your food would run out before you got the money to buy more. Never true 09/22/20 24 Within the past 12 months, t he food you bought just didn't last and you didn't have money to get more. Never true 09/22/2024 PRAPARE - Transportation Answer Date Re corded In the past 12 months, has l ack of transportation kept you from medical appointments or from getting medications? No 09/10 In the past 12 months, has l ack of transportation kept you from meetings, work, or from getting things needed for daily living? No 09/22/2024 PHQ-9 Answer Date Recorded Patient Health Questionnaire-9 Score 0 09/28/2024 Housing Stability Vital Sign Answer Donnie e Recorded In the last 12 months, was t here a time when you were not able to pay the mortgage or rent on time? No 09/22/2024 In the past 12 months, how m any times have you moved where you were living? 1 09/22/2024 At any time in the past [facility], were you homeless or living in a long term (including now)? No 09/22/2024 Utilities Answer Date Recorded In the past 12 months has th e [employer], gas, oil, or water company threatened to shut off services in your home? No 09/22/2024 PHQ-2A Answer Date Recorded Patient Health Questionnaire-2 Score 2 08/21/2023 Comments No Sex and Gender Information Value Date Recorded Sex Assigned at Not on file Legal Sex Female 6:25 PM EDT Gender Identity Not on file Sexual Orientation Not on file Last Filed Vital Signs Vital Sign Reading Time Taken Comments Blood Pressure 138/88 09/28/2024 10:18 AM EST Pulse 67 09/28/2024 10:18 AM EST Temperature 36.6 C (97.9 F) 09/28/2024 10:18 AM EST Respiratory Rate 18 09/28/2024 10:1 8 AM EST Oxygen Saturation 95% 09/28/2024 10: 18 AM EST Inhaled Oxygen Concentration - - Weight 82.5 kg (181 lb 12.8 oz) 024 10:18 AM EST Height 170.2 cm (5' 7 ) 09/28/2024 10:1 8 AM EST Body Mass Index 28.47 09/28/2024 10:18 AM EST Plan of Treatment Health Maintenance Due Date Last Done Comments [facility]-Bone Density Scan 1950 [facility]-Hepatitis C Screening 1950 [facility]-/Child/Adol SDOH Screenings 1950 [facility]-DTaP,Tdap,and Td Vaccines (1 - Tdap) 1969 CT Colonography 1995 FIT-DNA 1995 FIT 1995 FOBT 1995 Sigmoidoscopy 1995 [facility]-Pneumococcal Vaccine: 50+ Years (2 of 2 - PPSV23) 10/03/2020 08/08/2020, 09/27/2016 [id number] Vaccine ( - season) 2025 09/21/2024, 09/11/2023, 10/11/2022, Additional history exists [facility]- SDOH Screenings 03/22/2025 [facility]-Adult SDOH Screenings 03/22/2025 09/22/2024 [facility]-RSV Vaccine: 60+ Years or (1 - 1-dose 75+ series) 2025 [facility]-Zoster Vaccines (1 of 2) 04/25/2025 02/28/2025 [facility]-Depression Screening 09/28/2025 , 09/28/2024, 07/25/2022 [facility]-Medicare Annual Wellness (AWV) 09/28/2025 09/28/2024 Colonoscopy 09/23/2032 09/23/2022, 01/27/2012 [facility]-Colorectal Cancer Screening 09/23/2032 [facility]-Hepatitis A Vaccines Aged Out 06/10/2019, 10/11 No longer eligible based on patient's age to complete this topic [facility]-Breast Cancer Screening Discontinued 05/15/2023, 1 12/16/2020 [facility]-Influenza Vaccine Completed 08/31/2024 , 08/21/2023, 09/04/2022, Additional history exists [facility]-Obesity Intervention Completed 024, 08/21/2023, 02/19/2023, Additional history exists HPV Vaccines Aged Out No longer eligi ble based on patient's age to complete this topic [facility]-HIB Vaccines Aged Out No longer e ligible based on patient's age to complete this topic [facility]-IPV Vaccines Aged Out No longer e ligible based on patient's age to complete this topic [facility]-Rotavirus Vaccines Aged Out No lo nger eligible based on patient's age to complete this topic Procedures Procedure Name Priority Date/Time Associated Diagnosis Comments MAMMOGRAPHY BREAST SCREENING TOMOSYNTHESIS BILATERAL Routine 05/15/2023 1:14 PM EDT Encounter for screening mammogram for malignant neoplasm of breast COLONOSCOPY EXTERNAL RESULT 01/27/2012 from Last 3 Months or Most Recently Relevant to Health Maintenance Results * Mammography Breast Screening Tomosynthesis Bilateral (05/15/2023 1:14 PM EDT) Anatomical Region Laterality Modality Breast Bilateral Mammography Impressions 06/04/2023 2:56 PM EDT No mammographic evidence of malignancy. BI-RADS CATEGORY: Overall: 1 - Negative RECOMMENDATION: - Routine Screening Mammogram in 1 Year. Patient Lifetime Risk Score of Breast Malignancy: 3.1 % This risk assessment is calculated using the Rosario Risk Assessment model which may underestimate the lifetime risk of breast malignancy. COMMUNICATION: Computer-aided detection (CAD) and tomosynthesis were utilized by the radiologist in the interpretation of this examination. The results and recommendations will be sent to the patient in a printed lay language version of the imaging report. Narrative 06/04/2023 2:56 PM EDT EXAM: Mammography Breast Screening with Tomosynthesis REASON FOR EXAM: Screening Mammogram HISTORY: Patient is 73 y.o. COMPARISON STUDIES: Compared to: 08/21/2018 Mammography Outside Images Upload at [facility] 09/03/2019 Mammography Outside Images Upload at [facility] 09/06/2020 Mammography Outside Images Upload at [facility] 10/15/2021 Mammography Breast Screening Tomosynthesis Bilateral BREAST COMPOSITION: The breasts are heterogeneously dense, which may obscure small masses. FINDINGS: There are no suspicious masses, calcifications, or areas of architectural distortion. us Shalini Clemons SALES MARKETING MANAGER IMG BI PROCEDURES Final Res ult * COLONOSCOPY EXTERNAL RESULT (01/27/2012) Anatomical Region Laterality Modality Endoscopy Narrative 01/27/2012 Ordered by an unspecified provider. us External Provider GI PROCEDURE ORDERABLES Final Result from Last 3 Months or Most Recently Relevant to Health Maintenance Insurance [facility] MEDICARE Care Teams Staff Sonographer Relationship Specialty Start Date End Date Maci Driscoll APRN [address] [place] [address] PCP - General 03/23/21
--- OUTSIDE RECORDS SUMMARY | 2025-05-05 13:11 | XMS_ITS | Clinical Summary ---
Author Organization [facility] Address [facility] [place] [address] Phone Care Team Providers Care Marketing Agent Name Role Phone Unavailable Primary Care Provider Unavailabl e Social History Tobacco Use Types Packs/Day Years Used Date Smoking Tobacco: Never Assessed Comments Unknown Sex and Gender Information Value Date Recorded Sex Assigned at Not on file Legal Sex Female 2:54 PM EDT Gender Identity Not on file Sexual Orientation Not on file Plan of Treatment Health Maintenance Due Date Last Done Comments Annual Wellness Exam 1953 Hepatitis C Screening 1968 DTaP/TDaP/Td (1 - Tdap) 1969 Cologuard 1995 Colon Cancer Screening 1995 Colonoscopy 1995 FIT 1995 Sigmoidoscopy 1995 Virtual Colonography 1995 Zoster (1 of 2) 2000 Bone Density Screening 2015 Pneumococcal Vaccine 50+ (2 of 2 - PCV20 or PCV21) 08/08/2021 08/08/2020, 09/27/2016 COVID-19 Vaccine ( season) 2025 09/21/2024, 09/11/2023, 10/11/2022 RSV or 60+ (1 - 1-dose 75+ series) 2025 Influenza Vaccine Completed 08/31/2024, , 09/04/2022, Additional history exists Hepatitis B Vaccine Aged Out No longe r eligible based on patient's age to complete this topic Meningococcal B Vaccine Aged Out No l onger eligible based on patient's age to complete this topic
[2025-05-05 13:15] VITALS: BP 135/79; PULSE 66; RESP 12; O2SAT 96; BMI 28.1
--- NOTE | 2025-05-05 13:59 | EXP.PAIN.SOA ---
[facility] Disclaimer: The information contained in this section may have been updated after the patient was seen, as this information can be updated by other users. Medical History History of colitis History of renal cell cancer Edema of both lower extremities HLD (hyperlipidemia) HTN (hypertension) Family history of chronic ischemic heart disease Surgical History Surgical history unknown History of nephrectomy Family History Other Unknown family medical history Social History Smoking Status: Never smoker alcohol intake: never current occupational status: other Travel in the last 8 weeks?: None PM Subjective & Objective Subjective Subjective:: Patient is a pleasant 75-year-old female who presents today for worsening low back and leg symptoms. She rates her pain today a 7 out of 10. She denies any new falls or injuries. She does state that she did go to physical therapy however she was not able to continue to do these exercises due to the worsening pain symptoms. Patient states that she did also try to continue them at home but it just made her pain so much worse. She does describe her pain as an aching, throbbing sensation with numbness and tingling that is worse when she is up walking or moving. Patient does feel like her hip along the right side is even out of place. Patient states the pain is just constant. She does states she has difficulty performing activities of daily living such as cooking and cleaning due to this pain. Patient was being previously scheduled for a repeat epidural however was denied for not having recent physical therapy. Patient would like to see about repeating her previous injections. Patient is prescribed baclofen 10 mg 3 times a day from our office. She denies any side effects. Her Domo has been reviewed and is appropriate. Review of Systems: General: No recent weight changes, no fever, no sleep disturbances Respiratory: No cough, no shortness of air, no recurring pulmonary infections Cardiovascular/peripheral vascular: No chest pain, no palpitations, no edema, no shortness of breath Gastrointestinal: No new onset incontinence, normal bowel movements reported Genitourinary: No new onset incontinence Musculoskeletal: Low back pain, bilateral leg pain, hip pain Psychiatric: [Normal mood/affect] Neurological: [Denies weakness in extremities], [denies balance issues] Pain at rest (0-10 scale): 7 Objective Objective:: Physical Exam: General: Alert and oriented x3, no acute distress, pleasant and cooperative Lungs: Respirations even and unlabored, symmetrical chest expansion Eyes: PERRL Musculoskeletal: Flexion and extension of lumbar [spine] somewhat guarded secondary to pain, [antalgic gait noted] positive leg raise Neurological: Speech clear, no gross sensory deficit Has patient had previous pain injection?: No Conservative treatment options previously tried: Home exercise plan Length of treatment: Longer than 12 weeks and Physical Therapy Length of treatment: Made worse Meds Home Medications and Allergies Home Medications ?Medication ?Instructions ?Recorded ?Confirmed ?Type loratadine 10 mg tablet 10 mg PO DAILY 07/17/23 05/05/25 History simvastatin 40 mg tablet 40 mg PO DAILY 07/17/23 05/05/25 History felodipine 10 mg tablet,extended 10 mg PO DAILY 08/13/23 05/05/25 History release 24 hr ibandronate 150 mg tablet 150 mg PO QMONTH 11/13/23 05/05/25 History potassium chloride 10 mEq 10 meq PO DAILY 12/30/23 05/05/25 History tablet,extended release carvedilol 25 mg tablet 25 mg PO BID #180 tabs 01/13/25 05/05/25 Rx baclofen 10 mg tablet 10 mg PO TID #90 tabs 01/20/25 05/05/25 Rx losartan 100 mg tablet See Rx Instructions .Route 02/28/25 05/05/25 Rx .COMPLEX #90 tabs New Prescriptions to Start Prescriptions: Allergies Allergy/AdvReac Type Severity Reaction Status Date / Time No Known Allergies Allergy Verified 02/15/25 14:11 Assessment and Plan *Assessment and plan (1) Degenerative disc disease, lumbar: Status: Acute Category: Medical Code(s): M51.369 - Other intervertebral disc degeneration, lumbar region without mention of lumbar back pain or lower extremity pain (2) Lumbar radiculopathy: Status: Acute Category: Medical Code(s): M54.16 - Radiculopathy, lumbar region Plan Patient is experiencing worsening pain in her low back with numbness and tingling into her lower extremities. Patient did have limited range of motion of her lumbar spine with a positive leg raise. I did discuss with patient that I do believe they would benefit from a lumbar epidural steroid injection. Risk and benefits were discussed with patient and the patient would like to proceed forward with this plan of care. Patient is not on any blood thinners. Patient has tried and failed conservative therapy including oral medications, heat and ice, topicals, recent physical therapy that caused worsening pain. She has continued at home stretching exercise for longer than 12 weeks between injections. Patient has had chronic back pain for longer than 6 months. Patient did previously have a lumbar epidural back in November that provided 50% relief and lasted longer than 3 months. We will schedule the patient for an LESI L4-L5 under fluoroscopy. Patient has been instructed to contact the clinic with any concerns before the next appointment. Dr. Amezquita has reviewed this note and agrees with this plan of care. This note was dictated using voice recognition software and make contain errors or omissions. All injections are used with Lidocaine, Bupivacaine and dexamethasone. Occasionally urine drug screen is needed to verify patient's compliance with our office pain contract. This is ordered based off specific treatments related to chronic pain with the potential to abuse certain medications.
== END 2025-05-05 23:59 | disposition home or self-care (01) ==
LOC: SC.PAIN 13:04
PROVIDERS: PCP Nurse Practitioner Family; Visit Provider Nurse Practitioner Family
DX: M51.16 Intervertebral disc disorders with radiculopathy, lumbar region (principal)
CPT/HCPCS: 99212; G0463

== ENCOUNTER 2025-06-20 08:12 | Emergency (ER) | payer MEDICARE, SELFPAY ==
--- OUTSIDE RECORDS SUMMARY | 2022-02-12 09:01 | XMS_ITS | Encounter Summary ---
[facility] [address] [place] [address] Care Team Providers Care Ways Operator Name Role Phone Maci Driscoll APRN Primary Care Provider Reason for Referral * Diagnostic Imaging (Routine) - Closed Specialty Diagnoses / Procedures Referred By Contac t Referred To Contact Obstetrics and Gynecology Diagnoses Postmenopausal status (age-related) (natural) Procedures DEXA Bone Density Axial Maci Driscoll, ACCURACY EXPERT [address] [place] [address] Phone: tel: fax: [facility] OBGYN [address] [place] [address] Phone: tel: fax: Referral ID Status Reason Start Date Expiration Date Visits Re quested Visits Authorized [id number] Closed 02/07/2022 02/07/2023 1 1 Reason for Visit * Diagnostic Imaging (Routine) - Closed Specialty Diagnoses / Procedures Referred By Contac t Referred To Contact Obstetrics and Gynecology Diagnoses Postmenopausal status (age-related) (natural) Procedures DEXA Bone Density Axial Maci Driscoll, ACCURACY EXPERT [address] [place] [address] Phone: tel: fax: [facility] OBGYN [address] [place] [address] Phone: tel: fax: Referral ID Status Reason Start Date Expiration Date Visits Re quested Visits Authorized [id number] Closed 02/07/2022 02/07/2023 1 1 Encounter Details Date Type Department Care Team (Latest Contact Info) Description 02/12/2022 9:01 AM EDT Hospital Encounter [facility] [address] [place] [phone] Postmenopausal status (age-related) (natural) Social History Tobacco Use Types Packs/Day Years Used Date Smoking Tobacco: Never Assessed Abuse Screen Answer Date Recorded Unsafe at Home or Work/School Not on file Feels Threatened by Someone? Not on file 07/2023 Does Anyone Keep You from Co ntacting Others or Doint Things Outside the Home? Not on file 08/18/2023 Physical Sign of Abuse Present Not on file 1 Housing Stability Answer Date Recorded Current Living Arrangements Not on file 07/2023 Potentially Unsafe Housing Conditions Not on didier e 08/18/2023 Family and Community Support Answer Donnie e Recorded Help with Day-to-Day Activities Not on file 08/18/2023 Lonely or Isolated Not on file 08/18/2023 Employment Answer Date Recorded Do you want help finding or keeping work or a maximiliano b? Not on file 08/18/2023 Disabilities Answer Date Recorded Concentrating, Remembering, or Making Decisions Difficulty Not on file 08/18/2023 Doing Errands Independently Difficulty Not on fi le 08/18/2023 Education Answer Date Recorded Help with school or training? Not on file Preferred Language Not on file 08/18/2023 Comments Unknown Sex and Gender Information Value Date Recorded Sex Assigned at Not on file Legal Sex Female 11:11 AM EDT Gender Identity Not on file Sexual Orientation Not on file documented as of this encounter Plan of Treatment Pending Results Name Type Priority Associated Diagnoses Date /Time DEXA Bone Density Axial Imaging Routine Postmenopausal status (age-related) (natural) 02/12/2022 9:19 AM EDT Scheduled Orders Name Type Priority Associated Diagnoses Orde r Schedule DEXA Bone Density Axial Imaging Routine Postmenopausal status (age-related) (natural) Once for 1 Occurrences starting 02/12/2022 until 02/12/2022 documented as of this encounter Visit Diagnoses Diagnosis Postmenopausal status (age-related) (natural) Asymptomatic postmenopausal status (age-related) (natural) documented in this encounter Care Teams Ways Operator Relationship Specialty Start Date End Date Maci Driscoll APRN [address] [place] [address] PCP - General Family Medicine 02/12/22 documented as of this encounter
[2025-06-20] VITALS (14 sets, daily range): BP systolic 145–185; BP diastolic 78–102; PULSE 71–78; RESP 17–19; TEMP 36.6–37.1; O2SAT 93–98; BMI 28.1
--- NOTE | 2025-06-20 08:25 | CT_ITS ---
FINAL REPORT TECHNIQUE: IV contrast enhanced exam This study was performed with techniques to keep radiation doses as low as reasonably achievable, (ALARA). Individualized dose reduction techniques using automated exposure control or adjustment of mA and/or kV according to the patient''s size were employed. CLINICAL HISTORY: lower abdominal pain, Hx diverticuliutis COMPARISON: None FINDINGS: Abdomen: No acute density is seen within the lung bases. There is a solitary right kidney with mild right renal scarring. The gallbladder is unremarkable. The remaining solid abdominal organs are unremarkable. No bowel obstruction is present. There is no free air. No fluid collection is seen. There is a small midline abdominal wall hernia containing fat. There is no adenopathy. Pelvis: The appendix is normal. Pelvic floor prolapse is noted. There is moderate sigmoid diverticulosis without evidence of diverticulitis. The urinary bladder is mildly distended. There is no free fluid. No pelvic mass is seen. IMPRESSION: Moderate sigmoid diverticulosis without diverticulitis. Pelvic floor prolapse. Reviewed, Interpreted and Dictated by Haven Hernandez MD Transcribed by Renée Lynn Authenticated and . [facility]
--- OUTSIDE RECORDS SUMMARY | 2025-06-20 08:25 | XMS_ITS | Encounter Summary ---
Author Organization Healthcare Address [address] [place] [address] Care Team Providers Care Paraplanner Name Role Phone Julio Pires MANAGER [employer] Primary Care Provider [phone] Siria Soriano LPN Unavailable Unavailab le Encounter Details Date Type Department Care Team (Late st Contact Info) Description 06/20/2022 Outside Procedure External Location [address] [place] [address] Julio Pires, MANAGER [facility] [facility] [address] [place] [address] Social History Tobacco Use Types [...] AM EDT Narrative 06/20/2022 9:00 [place] [address] Name: CARLOS MI Exam Date: 06/20/2022 : 1950 Age 72 Gender: F Physician: JULIO PIRES Facility: [facility] Facility HSV: Outpatient Exam: HIP 2 VIEW [...] Thank you for referring CARLOS MI to [facility]. Legally authenticated by ANEL YE 2022-06-20 08:48:15 Procedure Note Provider, [facility] 06/20/2022 [place] [address] Name: CARLOS MI Exam Date: 06/20/2022 : 1950 Age 72 Gender: F Physician: JULIO PIRES Facility: [facility] Facility HSV: Outpatient Exam: HIP 2 VIEW [...] Thank you for referring CARLOS MI to [facility]. Legally authenticated by ANEL YE 2022-06-20 08:48:15 us Julio Pirse APRN IMG XR PROCEDURES Final Res ult documented in this encounter Visit Diagnoses Not on filedocumented in this encounter Additional Health Concerns Assessment Noted Time A fall risk assessment has been complete d for the patient 06/20/2022 7:38 AM EDT documented as of this encounter Care Teams Paraplanner Relationship Specialty Start Date End Date Julio Pires APRN [address] [place] [address] PCP - General 03/23/21 Siria Soriano LPN VALUE-BASED TRANSFORMATION PROGRAM Licensed Practical Nurse 09/22/24 03/21/25 documented as of this encounter
--- OUTSIDE RECORDS SUMMARY | 2025-06-20 08:25 | XMS_ITS | Encounter Summary ---
Author Organization [facility] Address [address] [place] [address] Care Team Providers Care Ticker Wirer Name Role Phone Maci Driscoll APRN Primary Care Provider [phone] Siria Soriano LPN Unavailable Unavailab le Reason for Visit * Reason Comments Med Refill Encounter Details Date Type Department Care Team (Late st Contact Info) Description 02/11/2023 Refill [facility] [address] [place] [address] Maci Driscoll APRN [address] [place] [address] Social History Tobacco Use Types [...] documented as of this encounter Care Teams Ticker Wirer Relationship Specialty Start Date End Date Maci Driscoll APRN [address] [place] [address] PCP - General 03/23/21 Siria Soriano LPN VALUE-BASED TRANSFORMATION PROGRAM Licensed Practical Nurse 09/22/24 03/21/25 documented as of this encounter
--- NOTE | 2025-06-20 08:26 | HMH.EDGENADL ---
Discharge Plan Disposition Patient Disposition: Home, Self-Care Prescriptions Prescriptions: New cefadroxil 500 mg capsule 500 mg PO BID 7 Days Qty: 14 0RF ondansetron 4 mg tablet,disintegrating 4 mg PO DAILY PRN (Reason: nausea and vomiting) 5 Days Qty: 20 0RF No Action felodipine 10 mg tablet extended release 24 hr 10 mg PO DAILY potassium chloride 10 mEq tablet extended release 10 meq PO DAILY Patient Comments: TAKE 1 TABLET BY MOUTH ONCE DAILY. DO NOT CRUSH, CHEW, OR SPLIT simvastatin 40 mg tablet 40 mg PO DAILY loratadine 10 mg tablet 10 mg PO DAILY ibandronate 150 mg tablet 150 mg PO QMONTH carvedilol 25 mg tablet 25 mg PO BID Qty: 180 3RF losartan 100 mg tablet See Rx Instructions .ROUTE .COMPLEX Qty: 90 3RF Dose Instruction: Take 1 tablet by mouth once daily Rx Instructions: Take 1 tablet by mouth once daily baclofen 10 mg tablet 10 mg PO TID Qty: 90 2RF Referrals Follow up/Referrals: Elizabeth Smart DO [Staff Physician, LANGUAGE INSTRUCTOR] - See instructions Maci Driscoll [Primary Care Provider, Medical] - See instructions Activity Restrictions/Add. Instructions Additional Instructions/Restrictions: There is no evidence of diverticulitis or other significant findings on your CT scan and lab work today. You do have a urinary tract infection and are being prescribed a 7-day course of antibiotics. Take these for the full 7 days. You do have a pelvic floor prolapse, which could be causing some of your symptoms. I will refer you to our gynecology physicians and encourage you to call them to schedule a an appointment. If you develop any new or worsening symptoms, or if you become concerned for your health for any reason, return to the emergency department for evaluation Clinical Impressions Clinical Impression: Pelvic prolapse, Abdominal pain, Urinary tract infection Instructions Patient Instructions: DI for Acute Abdominal Pain Print Language Print Language: [place] Discharge ED Provider: Reza Yao Adult HPI General Chief complaint: Abdominal Pain Stated complaint: issue with diverticulitis Time Seen by Provider: 06/20/25 08:19 Mode of Arrival: Ambulatory Source of Information: Patient Description of Symptoms (Recalled from ER Triage Doc. by RN): Patient presents to ED from home with c/o nausea and lower abdominal cramping . Patient reports hx of diverticulitis, last BM yesterday. History of Present Illness HPI narrative: Alexa Mi is a 75-year-old female with a history of hypertension, hyperlipidemia, coronary artery disease, colitis, diverticulitis, tubal ligation, cancer status post, who presents to the emergency department for complaints of intermittent abdominal pain and nausea. Patient said over the last 3 weeks, she has had intermittent episodes of crampy abdominal pain. She states that she previously had diarrhea but has had normal stools recently. She states her last bowel movement was yesterday, however she has not had a bowel movement today and normally has a bowel movement by this point. She feels the need to go but has been unable to go this morning. She states that the pain in her abdomen got worse last night and prevented her from sleeping. She does not believe she has had any fevers. She does report some nausea today and had vomiting a few weeks ago but not recently. She denies any dysuria or hematuria or changes in urinary frequency. She has been taking Tylenol at home. She is concerned that she has a colon infection or diverticulitis. Related Data Home Medications ?Medication ?Instructions ?Recorded ?Confirmed loratadine 10 mg tablet 10 mg PO DAILY 07/17/23 05/05/25 simvastatin 40 mg tablet 40 mg PO DAILY 07/17/23 05/05/25 felodipine 10 mg tablet,extended 10 mg PO DAILY 08/13/23 05/05/25 release 24 hr ibandronate 150 mg tablet 150 mg PO QMONTH 11/13/23 05/05/25 potassium chloride 10 mEq 10 meq PO DAILY 12/30/23 05/05/25 tablet,extended release Previous Rx's ?Medication ?Instructions ?Recorded carvedilol 25 mg tablet 25 mg PO BID #180 tabs 01/13/25 baclofen 10 mg tablet 10 mg PO TID #90 tabs 01/20/25 losartan 100 mg tablet See Rx Instructions .Route 02/28/25 .COMPLEX #90 tabs cefadroxil 500 mg capsule 500 mg PO BID 7 days #14 caps 06/20/25 ondansetron 4 mg disintegrating 4 mg PO DAILY PRN nausea and 06/20/25 tablet vomiting 5 days #20 tabs Allergies Allergy/AdvReac Type Severity Reaction Status Date / Time No Known Allergies Allergy Verified 02/15/25 14:11 [facility] Disclaimer: The information contained in this section may have been updated after the patient was seen, as this information can be updated by other users. Medical History History of colitis History of renal cell cancer Edema of both lower extremities HLD (hyperlipidemia) HTN (hypertension) Family history of chronic ischemic heart disease Surgical History Surgical history unknown History of nephrectomy Family History Other Unknown family medical history Social History Smoking Status: Never smoker alcohol intake: never current occupational status: other Travel in the last 8 weeks?: None Have you lived/traveled outside US in past 30 days?: No Contact w/someone who lives/traveled outside US past 30 days?: No Exposure to someone with infectious disease in past 14 days?: No Do you have a fever (greater than 100.4 F or 38 C)?: No Have you tested positive for COVID-19?: No Exposed to someone with COVID-19 in past 14 days?: No Do you have a sore throat?: No Do you have a cough?: No Do you have any weakness?: No Do you have any diarrhea?: No Are you experiencing any unusual bleeding?: No Do you have any muscle aches/pain?: No Do you have any abdominal pain?: No Are you experiencing loss of taste or smell?: No Other Medical History Have you received the Flu Vaccine for this season: Yes Have you received the Pneumonia Vaccine: No ROS Obtained: Yes Systems reviewed as appropriate & no additional complaints except as documented Physical Exam General General appearance: alert and in no apparent distress Head Head exam: atraumatic Eye Eye exam: Present normal appearance ENT ENT exam: Present normal external ear exam Neck Neck exam: Present full ROM Chest Chest inspection: Present symmetric chest wall rise Respiratory Respiratory exam: Present normal lung sounds bilaterally; Absent respiratory distress, wheezes or stridor Cardiovascular Cardiovascular exam: Present regular rate and normal rhythm Abdominal Exam Abdominal exam: Present soft, tenderness (suprapubic with mild guarding) and guarding; Absent rigidity Extremities Exam Extremities exam: Present normal inspection Back Exam Back exam: Present normal inspection Neurological Exam Neurological exam: Present alert and oriented X3 Psychiatric Psychiatric exam: Present normal affect Skin Skin exam: Present warm and dry Medical Decision Making Medical Records Screening: Per USPSTF and CDC recommendations, given the prevalence of disease in our region, it is our hospital?s policy to screen for HIV and viral Hepatitis for all patients aged 18 and over and those with ongoing risk factors. Domo Inquiry Pt receiving controlled substance: No Vital Signs: 06/20/25 08:20 06/20/25 08:21 06/20/25 08:30 Temperature 97.9 F Temperature Source Oral Pulse Rate 77 76 Pulse Rate [Left] 72 Respiratory Rate 19 19 17 Blood Pressure 156/89 H 145/78 H Blood Pressure [Right Arm] 158/81 H Blood Pressure Mean 107 112 Blood Pressure Mean [Right Arm] 106 Blood Pressure Source [Right Arm] Automatic Cuff 02 Sat by Pulse Oximetry 96 96 98 Oxygen Delivery Method Room Air Room Air Room Air 06/20/25 08:40 06/20/25 08:50 06/20/25 09:00 Temperature Temperature Source Pulse Rate 75 75 71 Pulse Rate [Left] Respiratory Rate Blood Pressure 160/83 H 158/84 H 145/80 H Blood Pressure [Right Arm] Blood Pressure Mean Blood Pressure Mean [Right Arm] Blood Pressure Source [Right Arm] 02 Sat by Pulse Oximetry 95 95 94 L Oxygen Delivery Method 06/20/25 10:14 06/20/25 10:20 06/20/25 10:30 Temperature Temperature Source Pulse Rate 73 74 75 Pulse Rate [Left] Respiratory Rate 17 Blood Pressure 177/95 H 158/93 H 164/94 H Blood Pressure [Right Arm] Blood Pressure Mean 121 Blood Pressure Mean [Right Arm] Blood Pressure Source [Right Arm] 02 Sat by Pulse Oximetry 95 95 93 L Oxygen Delivery Method Room Air 06/20/25 10:40 06/20/25 10:50 06/20/25 11:10 Temperature Temperature Source Pulse Rate 76 75 74 Pulse Rate [Left] Respiratory Rate Blood Pressure 165/93 H 165/90 H 179/94 H Blood Pressure [Right Arm] Blood Pressure Mean Blood Pressure Mean [Right Arm] Blood Pressure Source [Right Arm] 02 Sat by Pulse Oximetry 93 L 95 96 Oxygen Delivery Method Lab Data Lab Results 06/20/25 08:30: WBC 10.8, RBC 4.70, Hgb 14.2, Hct 42.1, MCV 89.6, MCH 30.2, MCHC 33.7, RDW 12.7, Plt Count 325, MPV 9.4, Neut % (Auto) 74.4, Lymph % (Auto) 18.7, [place] % (Auto) 5.1, Eos % (Auto) 0.9, Baso % (Auto) 0.5, Neut # (Auto) 8.1 H, Lymph # (Auto) 2.0, [place] # (Auto) 0.6, Eos # (Auto) 0.1, Baso # (Auto) 0.1, VBG pH 7.42 H, VBG pCO2 33.9 L, VBG pO2 51.7 H, VBG HCO3 21.7 L, VBG Total CO2 22.7 L, VBG O2 Saturation 87.5 H, VBG Base Excess -2.7 L, VBG Lactic Acid 1.6, Sodium 138, Potassium 3.8, Chloride 103, Carbon Dioxide 25, Anion Gap 13.8, BUN 17, Creatinine 0.90, Estimated Creat Clear 63, Estimated GFR 61, Est GFR ( Amer) 74, Glucose 143 H, Calcium 9.0, Total Bilirubin 1.0, AST 32, ALT 23, Alkaline Phosphatase 89, C-Reactive Protein < 0.3, Total Protein 7.9, Albumin 4.7, Globulin 3.2, Albumin/Globulin Ratio 1.5, Lipase 32, HCV Ab JAMESON w/Rflx PCR Qn Negative, HIV Ag/Ab Combo Qual Negative 06/20/25 10:12: Urine Color Yellow, Urine Appearance Sl cloudy, Urine pH 6.5, Ur Specific [place] 1.010, Urine Protein Negative, Urine Glucose (UA) Negative, Urine Ketones Negative, Urine Blood Negative, Urine Nitrate Positive A, Urine Bilirubin Negative, Urine Urobilinogen 0.2, Ur Leukocyte Esterase 1+ A, Urine RBC None, Urine WBC 20-50, Ur Squamous Epith Cells 10-20, Urine Bacteria 3+ 06/20/25 08:30 06/20/25 08:30 Orders (Tests/Meds): ED MEDICATIONS Discontinued Medications Generic Name Dose Route Start Last Admin Trade Name Freq PRN Reason Stop Dose Admin Iopamidol 75 ml 06/20/25 09:18 06/20/25 09:19 Iopamidol-370 (76%);100ml Bottle IV 06/20/25 09:19 75 ml ONCE ONE Administration Morphine Sulfate 2 mg 06/20/25 08:25 06/20/25 08:32 Morphine 2mg/Ml Syringe IV 06/20/25 08:26 2 mg ONCE ONE Administration Ondansetron HCl 4 mg 06/20/25 08:25 06/20/25 08:32 Ondansetron 4mg/2ml Vial IV 06/20/25 08:26 4 mg ONCE ONE Administration Sodium Chloride 10 ml 06/20/25 09:18 06/20/25 09:19 Sodium Chloride 0.9% 10ml Syr (Rad Only) IV 06/20/25 09:19 10 ml ONCE ONE Administration ORDERS Category Date Time Status CT abdomen pelvis w con Stat Cat Scan 06/20/25 08:25 Completed CBC w/Auto Diff [Complete Blood Count Auto Diff] Stat Lab 06/20/25 08:30 Completed CMP [Comprehensive Metabolic Panel] Stat Lab 06/20/25 08:30 Completed CRP [C-Reactive Protein] Stat Lab 06/20/25 08:30 Completed HIV Combo Stat Lab 06/20/25 08:30 Completed Hepatitis C Ab Qual. W/ RFX Stat Lab 06/20/25 08:30 Completed Lipase Stat Lab 06/20/25 08:30 Completed UA [Urinalysis and Microscopic] Stat Lab 06/20/25 10:12 Completed Urine Culture Stat Micro 06/20/25 10:12 Received VBG [Venous Blood Gas] Stat RT 06/20/25 08:30 Completed Medical Decision Narrative: Alexa Mi is a 75-year-old female with a history of hypertension, hyperlipidemia, coronary artery disease, colitis, diverticulitis, tubal ligation, cancer status post, who presents to the emergency department for complaints of intermittent abdominal pain and nausea. Patient said over the last 3 weeks, she has had intermittent episodes of crampy abdominal pain. She states that she previously had diarrhea but has had normal stools recently. She states her last bowel movement was yesterday, however she has not had a bowel movement today and normally has a bowel movement by this point. She feels the need to go but has been unable to go this morning. She states that the pain in her abdomen got worse last night and prevented her from sleeping. She does not believe she has had any fevers. She does report some nausea today and had vomiting a few weeks ago but not recently. She denies any dysuria or hematuria or changes in urinary frequency. She has been taking Tylenol at home. She is concerned that she has a colon infection or diverticulitis. On arrival, patient is mildly hypertensive with blood pressure 158/81, heart rate within normal limits, afebrile, breathing comfortably on room air with appropriate oxygen saturation. Physical exam, stated above, reveals an overall well-appearing female in no distress. GCS 15. Abdomen is nondistended and nonperitoneal neck. She has some tenderness in the suprapubic with mild guarding in this area. The remainder of her exam is grossly unremarkable. Differential diagnosis includes, but is not limited to: Diverticulitis, colitis, bowel obstruction, constipation, fecal impaction, urinary tract infection, acute pancreatitis, electrolyte derangement, among others. The most morbid conditions were considered and workup was based on these. Workup in the emergency room included: CT abdomen pelvis with IV contrast, CBC, CMP, lipase, VBG with lactate, urinalysis. Patient symptoms were treated with 4 mg IV Zofran and 2 mg IV morphine. Laboratory workup interpreted by me personally demonstrated VBG with mild respiratory alkalosis with pH of 7.42, pCO2 of 33.9, bicarb of 21.7. Lactate normal at 1.6. No leukocytosis, no anemia, CMP unremarkable nonactionable. Lipase normal at 32. CT imaging interpreted by me personally demonstrated diverticulosis without evidence of diverticulitis. She does have a midline abdominal wall hernia that contains fat. No evidence of bowel obstruction. No free fluid. There is pelvic floor prolapse. No other acute findings within the abdomen or pelvis. Urinalysis with positive nitrates, 1+ leukocyte Estrace, negative blood negative bilirubin. Negative ketones. Urine microscopy showed 20-50 white blood cells, however there are 10-20 squamous epithelial cells with some degree of contamination. 3+ bacteria. 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 Will prescribe 7-day course of cefadroxil for treatment of her urinary tract infection. Given these findings, patient is being referred to gynecology for her pelvic floor prolapse as this could be contributing some to her intermittent symptoms and given a course of antibiotics as well as Zofran for nausea. She also takes a teaspoon of MiraLAX daily but I encouraged her to increase that to 1 or 2 capfuls daily until her bowel become regular again. Movements return precautions were given. All questions were answered. She and daughter demonstrated understanding and were in agreement this plan. She was then discharged from the emergency department in stable condition. Critical Care Critical Care Time Critical Care Time: No
--- OUTSIDE RECORDS SUMMARY | 2025-06-20 08:27 | XMS_ITS | Encounter Summary ---
Author Organization Healthcare Address [address] [place] [address] Care Team Providers Care Financial Data Analyst Name Role Phone Julio Pires [employer] Primary Care Provider [phone] Siria Soriano LPN Unavailable Unavailab le Encounter Details Date Type Department Care Team (Late st Contact Info) Description 10/15/2021 Outside Procedure External Location [address] [place] [address] Julio Pires, [employer] [address] [place] [address] Social History Tobacco Use Types [...] AM EST Narrative 10/15/2021 9:51 AM EST [address] [address] Name: CARLOS MI Exam Date: 10/15/2021 : 1950 Age 71 Gender: F Physician: JULIO PIRES Facility: [facility] Facility HSV: Outpatient Exam: SARAI SCRN MAMMO [...] Thank you for referring CARLOS MI to [facility]. Legally authenticated by POPE MALATHI Dewey 2021-10-15 09:39:17 Procedure Note Provider, [facility] - 10/15/2021 [place] [address] Name: CARLOS MI Exam Date: 10/15/2021 : 1950 Age 71 Gender: F Physician: JULIO PIRES Facility: [facility] Facility HSV: Outpatient Exam: SARAI SCRN MAMMO [...] Thank you for referring CARLOS MI to [facility]. Legally authenticated by POPE MALATHI Dewey 2021-10-15 09:39:17 us Julio Pires APRN IMG BI PROCEDURES Final Res ult documented in this encounter Visit Diagnoses Not on filedocumented in this encounter Additional Health Concerns Assessment Noted Time A fall risk assessment has been complete d for the patient 07/19/2021 2:12 PM EDT documented as of this encounter Care Teams Financial Data Analyst Relationship Specialty Start Date End Date Julio Pires APRN [address] [place] [address] PCP - General 03/23/21 Siria Soriano LPN VALUE-BASED TRANSFORMATION PROGRAM Licensed Practical Nurse 09/22/24 03/21/25 documented as of this encounter
--- OUTSIDE RECORDS SUMMARY | 2025-06-20 08:27 | XMS_ITS | Referral Summary ---
Author Organization [employer] ([place], [place], [place], [place]) Address [address] [place] [address] Care Team Providers Care Feed Miller Name Role Phone Maci Driscoll NP Primary Care Provider [phone] Allergies No known active allergies Medications carvediloL [...] drink = 0.6 oz pur e alcohol) Food Insecurity Answer Date Recorded Food run [...] Date Tom rded Speak language other than Yoruba at home Not on file 11/27/2023 Want help with school or training Not on file 11/27/2023 Substance Use Answer Date Recorded Used [...] Plan of Treatment Not on file Insurance [facility] MEDICARE PFFS HU[employer] MEDICARE PPO Care Teams Feed Miller Relationship Specialty Start Date End Date Maci Driscoll NP PCP - General Nurse Practitioner 09/23/22
--- OUTSIDE RECORDS SUMMARY | 2025-06-20 08:27 | XMS_ITS | Clinical Summary ---
Author Organization [facility] Address [place] [address] Phone Care Team Providers Care Photoflash Powder Mixer Name Role Phone Unavailable Primary Care Provider [...] - 1-dose 75+ series) 2025 Influenza Vaccine (#1) 2025 , 08/21/2023, 09/04/2022, Additional history exists Hepatitis B Vaccine Aged Out No longe r eligible based on patient's age to complete this topic Meningococcal B Vaccine Aged Out No l onger eligible based on patient's age to complete this topic
--- OUTSIDE RECORDS SUMMARY | 2025-06-20 08:27 | XMS_ITS | Clinical Summary ---
Author Organization [facility] yste Address [address] [place] [address] Care Team Providers Care Canvass Manager Name Role Phone AmericoMaci PAUL Primary Care Provider Social History Tobacco Use Types Packs/Day Years [...] Health Maintenance Due Date Last Done Comments DXA SCAN 1950 HEPATITIS C SCREENING 1950 TDAP/TD VACCINES (1 - Tdap) 1969 COLOGUARD 1995 COLON CANCER SCREENING 5 YEA R SIGMOIDOSCOPY 1995 COLONOSCOPY [address] CANCER SCREENING [address] COLONOGRAPHY 1995 FECAL OCCULT BLOOD TEST 1995 FIT Testing (1 year) 1995 ZOSTER VACCINE (1 of 2) 2000 Pneumococcal Vaccine 50+ (2 of 2 - PPSV23) 08/08/2021 08/08/2020, 09/27/2016 COVID-19 Vaccine (3 - 2023-2 5 season) 2024 09/12/2021, 02/14/2021 RSV Vaccine - Adults (1 - 1- dose 75+ series) 2025 INFLUENZA VACCINE 08/10/2025 08/02/2020, , 08/18/2018, Additional history exists ANNUAL WELLNESS VISIT 09/28/2025 09/28/2024 Insurance [facility] MEDICARE ADVANTAGE Care Teams Canvass Manager Relationship Specialty Start Date End Date Maci Driscoll APRN [address] [place] [address] PCP - General Family Medicine 02/12/22
--- OUTSIDE RECORDS SUMMARY | 2025-06-20 08:27 | XMS_ITS | Clinical Summary ---
Author Organization [facility] Address [address] [place] [address] Care Team Providers Care Glue Mounter Operator Name Role Phone Maci Driscoll APRN Primary Care Provider [phone] Allergies No known active allergies Medications loratadine [...] 12y +, Bautista Protein, Preservative free 09/21/2024,09/11/2023 [email or web address] COVID-19 Biv alent (Bailey Cap) 12+ years [...] How often do you attend chur or congregation services? Never 09/22/2024 Do you belong to any clubs o r organizations such as gnosticism groups, unions, fraternal or athletic groups, or [...] Recorded Patient Health Questionnaire-2 Score 0 09/28/2024 [facility] - Occupational Stress Questionnaire [...] any time in the past 12 m [facility], were you homeless or living in a mcfp (including now)? No 09/22/2024 Utilities Answer Date Recorded In the past 12 months has th e [employer], gas, oil, or water company threatened to [...] Density Scan 1950 [facility]-Hepatitis C Screening 1950 [facility]-Infant/Child/Adol SDOH Screenings 1950 [facility]-DTaP,Tdap,and Td Vaccines (1 - Tdap) 1969 CT Colonography 1995 FIT-DNA 1995 FIT 1995 FOBT 1995 Sigmoidoscopy 1995 [facility]-Pneumococcal Vaccine: 50+ Years (2 of 2 - PPSV23) 10/03/2020 08/08/2020, 09/27/2016 [id number] Vaccine (6 - season) 2025 09/21/2024, 09/11/2023, 10/11/2022, Additional history exists [facility]- SDOH Screenings 03/22/2025 [facility]-Adult SDOH Screenings 03/22/2025 09/22/2024 [facility]-RSV Vaccine: 60+ Years or (1 - 1-dose 75+ series) 2025 [facility]-Zoster Vaccines (1 of 2) 04/25/2025 02/28/2025 [facility]-Influenza Vaccine (#1) 07/11/202508/31, 08/21/2023, 09/04/2022, Additional history exists [facility]-Depression Screening 09/28/2025 024, 09/28/2024, 07/25/2022 [facility]-Medicare Annual Wellness (AWV) 09/28/2025 09/28/2024 Colonoscopy 09/23/2032 09/23/2022, 01/27/2012 [facility]-Colorectal Cancer Screening 09/23/2032 [facility]-Hepatitis A Vaccines Aged Out 06/10/2019, 10/11 No longer eligible based on patient's age to complete this topic [facility]-Breast Cancer Screening Discontinued 05/15/2023, 1 12/16/2020 [facility]-Obesity Intervention Completed 024, 08/21/2023, 02/19/2023, Additional [...] to: 08/21/2018 Mammography Outside Images Upload at [employer] 09/03/2019 Mammography Outside Images Upload at [employer] 09/06/2020 Mammography Outside Images Upload at [employer] 10/15/2021 Mammography Breast Screening Tomosynthesis Bilateral BREAST COMPOSITION: The breasts are heterogeneously dense, which may obscure small masses. FINDINGS: There are no suspicious masses, calcifications, or areas of architectural distortion. us Shalini C Kaci ANESTHESIOLOGIST AND CRITICAL CARE IMG BI PROCEDURES Final Res ult * COLONOSCOPY EXTERNAL RESULT (01/27/2012) Anatomical Region Laterality Modality Endoscopy Narrative 01/27/2012 Ordered by an unspecified provider. External Provider GI PROCEDURE ORDERABLES Final Result from Last 3 Months or Most Recently Relevant to Health Maintenance Insurance [employer] MEDICARE Care Teams Glue Mounter Operator Relationship Specialty Start Date End Date Maci Driscoll APRN [address] [place] [phone] PCP - General 03/23/21
--- OUTSIDE RECORDS SUMMARY | 2025-06-20 08:27 | XMS_ITS | Clinical Summary ---
Author Organization [employer] [facility] ([place], [place], [place], [place]) Address [address] [place] [address] Care Team Providers Care Carpet Sewing Machine Operator Name Role Phone Maci Driscoll NP Primary Care Provider Allergies No known active allergies Medications carvediloL [...] Date Tom rded Speak language other than Telugu at home Not on file 11/27/2023 Want [...] and Screening (12+) 09/2309/23/2022 COVID-19 VACCINE ( season) 2024 Falls Risk Screening 11/10/2024 Respiratory Syncytial Virus (RSV) Adult or (1 - 1-dose 75+ series) 2025 Influenza Vaccine (#1) 2025 Colonoscopy 09/23/2032 09/23/2022 Colorectal Cancer Screening 09/23/2032 Insurance [employer] MEDICARE PFFS [employer] MEDICARE PPO Care Teams Carpet Sewing Machine Operator Relationship Specialty Start Date End Date Maci Driscoll NP PCP - General Nurse Practitioner 09/23/22
[2025-06-20] MEDS: MORPHINE 2MG/ML SYRINGE 2 MG IV (08:32)
[2025-06-20] MEDS: ONDANSETRON 4MG/2ML VIAL 4 MG IV (08:32)
[2025-06-20 08:41] LABS: Lactate Venous 1.6 mmol/L (0.4-2.0); VBG HCO3 21.7 mmol/L (23-30); VBG PCO2 33.9 mmol/L (35-51); VBG PH 7.42 mmol/L (7.31-7.41); VBG PO2 51.7 mmol/L (28-40)
[2025-06-20 08:43] LABS: Hematocrit 42.1 % (37.0-47.0); Hemoglobin 14.2 g/dL (12.2-16.2); Immature Granulocytes % 0.4 %; Mean Corpuscular HGB Conc 33.7 g/dL (31.8-35.4); Mean Corpuscular Hemoglobin 30.2 pg (27.0-31.2); Mean Corpuscular Volume 89.6 fl (81-99); Nucleated Red Blood Cells % 0 %; Platelet Count 325 K/mm3 (142-424); Red Blood Count 4.70 M/mm3 (4.20-5.40); Red Cell Distribution Width-SD 41.8 fL; White Blood Count 10.8 K/mm3 (4.8-10.8)
[2025-06-20 08:53] LABS: Chloride 103 mmol/L (98-107)
[2025-06-20 08:54] LABS: Albumin Level 4.7 g/dl (3.5-5.0); Potassium 3.8 mmoL/L (3.5-5.1); Sodium 138 mmol/L (136-145)
[2025-06-20 08:56] LABS: Alanine Aminotransferase 23 U/L (12-78); Alkaline Phosphatase 89 U/L (38-126); Aspartate Amino Transferase 32 U/L (14-36); Bilirubin,Total 1.0 mg/dl (0.2-1.3); Blood Urea Nitrogen 17 mg/dl (7-17); Creatinine Clearance Estimated 63 mL/min (50-200); Creatinine,Serum 0.90 mg/dl (0.52-1.04); Estimated Glomerular Filt Rate 61 ml/min (>60); GFR (African American) 74 ML/MIN (>60)
[2025-06-20 08:57] LABS: Albumin/Globulin Ratio 1.5 (1.1-1.8); Anion Gap 13.8 mEq/L (5-15); Calcium 9.0 mg/dl (8.4-10.2); Carbon Dioxide 25 mmol/L (22.0-30.0); Globulin 3.2 g/dL (1.3-3.2); Glucose 143 mg/dl (74-100); Lipase 32 U/L (23-300); Total Protein,Serum 7.9 g/dl (6.3-8.2)
[2025-06-20 09:06] LABS: C-Reactive Protein < 0.3 mg/L (0-4)
[2025-06-20] MEDS: SODIUM CHLORIDE 0.9% 10ML SYR (RAD ONLY) 10 ML IV (09:19)
[2025-06-20] MEDS: IOPAMIDOL-370 (76%);100ML BOTTLE 75 ML IV (09:19)
[2025-06-20 09:48] LABS: Hepatitis C Ab Qual. W/ RFX NEGATIVE (Negative)
[2025-06-20 10:18] LABS: Microscopic, Urine URINE MICROSCOPIC (MICROSCOPIC)
[2025-06-20 10:20] LABS: Bilirubin,Urine Negative (Negative); Color,Urine YELLOW (Yellow); Glucose,Urine (UA) Negative (Negative); Ketones,Urine Negative (Negative); Leukocyte Esterase,Urine 1+ (Negative); PH,Urine 6.5 (5.0-8.5); Protein,Urine Negative (Negative); Specific Gravity, Urine 1.010 (1.005-1.030); Urobilinogen,Urine 0.2 EU/dl (0.2)
[2025-06-20 11:14] LABS: Bacteria,Urine 3+ /lpf; WBC,Urine 20-50 #/hpf (0-3)
== END 2025-06-20 11:29 | disposition home or self-care (01) ==
PROVIDERS: Emergency Provider Student in an Organized Health Care Education/Training Program; PCP Nurse Practitioner Family
DX: R10.30 Lower abdominal pain, unspecified (principal); N39.0 Urinary tract infection, site not specified; E87.3 Alkalosis; N81.9 Female genital prolapse, unspecified; I10 Essential (primary) hypertension; E78.5 Hyperlipidemia, unspecified
CPT/HCPCS: 74177; 80053; 81001; 82803; 83690; 85025; 86140; 86803; 87086; 87088; 87186; 87389; 96374; 96375; 99285; J2270; J2405; Q9967

== ENCOUNTER 2025-06-22 18:40 | Emergency (ER) | payer MEDICARE, SELFPAY ==
--- OUTSIDE RECORDS SUMMARY | 2022-02-12 09:01 | XMS_ITS | Encounter Summary ---
[facility] Address [address] [place] [address] Care Team Providers Care Real Estate Legal Secretary Name Role Phone Maci Driscoll APRN Primary Care Provider Reason for Referral * Diagnostic Imaging (Routine) - Closed Specialty Diagnoses / Procedures Referred By Contac t Referred To Contact Obstetrics and Gynecology Diagnoses Postmenopausal status (age-related) (natural) Procedures DEXA Bone Density Axial Maci Driscoll, FORMAL SERVICE WAITER [address] [place] [address] Phone: tel: fax: [facility] OBGYN [address] [place] [address] Phone: tel: fax: Referral ID Status Reason Start Date Expiration Date Visits Re quested Visits Authorized [id number] Closed 02/07/2022 02/07/2023 1 1 Reason for Visit * Diagnostic Imaging (Routine) - Closed Specialty Diagnoses / Procedures Referred By Contac t Referred To Contact Obstetrics and Gynecology Diagnoses Postmenopausal status (age-related) (natural) Procedures DEXA Bone Density Axial Maci Driscoll, FORMAL SERVICE WAITER [address] [place] [address] Phone: tel: fax: [facility] OBGYN [address] [place] [address] Phone: tel: fax: Referral ID Status Reason Start Date Expiration Date Visits Re quested Visits Authorized [id number] Closed 02/07/2022 02/07/2023 1 1 Encounter Details Date Type Department Care Team (Latest Contact Info) Description 02/12/2022 9:01 AM EDT Hospital Encounter [facility] [address] [place] [phone] Postmenopausal status [...] (natural) documented in this encounter Care Teams Real Estate Legal Secretary Relationship Specialty Start Date End Date Maci Driscoll APRN [address] [place] [address] PCP - General Family Medicine 02/12/22 documented as of this encounter
--- OUTSIDE RECORDS SUMMARY | 2025-06-22 18:50 | XMS_ITS | Encounter Summary ---
Author Organization Healthcare Address [address] [place] [address] Care Team Providers Care Procurement Professional Logistics Name Role Phone Julio Pires METAL BED ASSEMBLER Primary Care Provider [phone] Siria Soriano LPN Unavailable Unavailab le Encounter Details Date Type Department Care Team (Late st Contact Info) Description 06/20/2022 Outside Procedure External Location [address] [place] [address] Julio Pires METAL BED ASSEMBLER [address] [place] [address] Social History Tobacco Use Types [...] as of this encounter Plan of Treatment Upcoming Encounters Date Type Department Care Team (Late st Contact Info) Description 06/23/2025 12:40 PM EDT Office Visit [facility] [address] [place] [address] Julio Pires, METAL BED ASSEMBLER [address] [place] [address] documented as of this encounter Procedures Procedure Name Priority Date/Time Associated Diagnosis Comments XR HIP LEFT 2 OR 3 VIEWS 06/20/2022 8:20 AM EDT documented in this encounter Results * XR Hip Left 2 or 3 Views (06/20/2022 8:20 AM EDT) Anatomical Region Laterality Modality Lower Extremities, Hip Left Radiograp hic Imaging 06/20/2022 8:20 AM EDT Narrative 06/20/2022 9:00 [place] [address] Name: CARLOS MI Exam Date: 06/20/2022 : 1950 Age 72 Gender: F Physician: JULIO PIRES Facility: [facility] Facility HSV: Outpatient Exam: HIP 2 VIEW [...] Thank you for referring CARLOS MI to [facility]. Legally authenticated by ANEL YE 2022-06-20 08:48:15 Procedure Note Provider, Generic [facility] - 06/20/2022 [place] [address] Name: CARLOS MI Exam Date: 06/20/2022 : 1950 Age 72 Gender: F Physician: JULIO PIRES Facility: [facility] Facility HSV: Outpatient Exam: HIP 2 VIEW [...] Thank you for referring CARLOS MI to [facility]. Legally authenticated by ANEL YE 2022-06-20 08:48:15 us Julio Pires APRN IMG XR PROCEDURES Final Res ult documented in this encounter Visit Diagnoses Not on filedocumented in this encounter Additional Health Concerns Assessment Noted Time A fall risk assessment has been complete d for the patient 06/20/2022 7:38 AM EDT documented as of this encounter Care Teams Procurement Professional Logistics Relationship Specialty Start Date End Date Julio Pires APRN [address] [place] [id number] PCP - General 03/23/21 Siria Soriano LPN VALUE-BASED TRANSFORMATION PROGRAM Licensed Practical Nurse 09/22/24 03/21/25 documented as of this encounter
--- OUTSIDE RECORDS SUMMARY | 2025-06-22 18:50 | XMS_ITS | Clinical Summary ---
Author Organization [facility] Address [address] [place] [address] Care Team Providers Care Brazing Machine Operator Automatic Name Role Phone Maci Driscoll APRN Primary Care Provider [phone] Allergies No known active allergies Medications loratadine [...] 12y +, Bautista Protein, Preservative free 09/21/2024,09/11/2023 Pfizer-Qinging Weekly Flower [employer] Food COVID-19 Biv alent (Bailey Cap) 12+ years [...] How often do you attend chur or tenriism services? Never 09/22/2024 Do you belong to any clubs o r organizations such as muslim groups, unions, fraternal or athletic groups, or [...] Recorded Patient Health Questionnaire-2 Score 0 09/28/2024 [facility] - Occupational Stress Questionnaire [...] any time in the past 12 m [facility], were you homeless or living in a prison (including now)? No 09/22/2024 Utilities Answer Date Recorded In the past 12 months has th e [employer], gas, oil, or water company threatened to [...] 09/28/2024 10:18 AM EST Plan of Treatment Upcoming Encounters Date Type Department Care Team (Late st Contact Info) Description 06/23/2025 12:40 PM EDT Office Visit [facility] [address] [place] [address] Maci Driscoll, CAN CONVEYOR FEEDER [address] [place] [address] Health Maintenance Due Date Last Done Comments [facility]-Bone Density Scan 1950 [facility]-Hepatitis C Screening 1950 [facility]-Infant/Child/Adol SDOH Screenings 1950 [facility]-DTaP,Tdap,and Td Vaccines (1 - Tdap) 1969 CT Colonography 1995 FIT-DNA 1995 FIT 1995 FOBT 1995 Sigmoidoscopy 1995 [facility]-Pneumococcal Vaccine: 50+ Years (2 of 2 - PPSV23) 10/03/2020 08/08/2020, 09/27/2016 [id number] Vaccine (2023- season) 2025 09/21/2024, 09/11/2023, 10/11/2022, Additional history [...] to: 08/21/2018 Mammography Outside Images Upload at [employer] 09/03/2019 Mammography Outside Images Upload at [employer] 09/06/2020 Mammography Outside Images Upload at [employer] 10/15/2021 Mammography Breast Screening Tomosynthesis Bilateral BREAST COMPOSITION: The breasts are heterogeneously dense, which may obscure small masses. FINDINGS: There are no suspicious masses, calcifications, or areas of architectural distortion. Shalini Clemons CAN CONVEYOR FEEDER IMG BI PROCEDURES Final Res ult * COLONOSCOPY EXTERNAL RESULT (01/27/2012) Anatomical Region Laterality Modality Endoscopy Narrative 01/27/2012 Ordered by an unspecified provider. us External Provider GI PROCEDURE ORDERABLES Final Result from Last 3 Months or Most Recently Relevant to Health Maintenance Insurance [place] [id number] [facility] MEDICARE Care Teams Brazing Machine Operator Automatic Relationship Specialty Start Date End Date Maci Driscoll APRN [address] [place] [phone] PCP - General 03/23/21
--- OUTSIDE RECORDS SUMMARY | 2025-06-22 18:50 | XMS_ITS | Clinical Summary ---
Author Organization [facility] Address [facility] [place] [address] Phone Care Team Providers Care Director Health Name Role Phone Unavailable Primary Care Provider [...]
--- OUTSIDE RECORDS SUMMARY | 2025-06-22 18:50 | XMS_ITS | Encounter Summary ---
Author Organization [facility] Address [address] [place] [address] Care Team Providers Care Mortgage Loan Officer Originator Name Role Phone Julio Pires SPOOL MAKER Primary Care Provider [phone] Siria Soriano LPN Unavailable Unavailab le Encounter Details Date Type Department Care Team (Late st Contact Info) Description 10/15/2021 Outside Procedure External Location [address] [place] [address] Julio Pires APRN [address] [place] [address] Social History Tobacco Use Types [...] Description 06/23/2025 12:40 PM EDT Office Visit [facility] [address] [place] [address] Julio Pires APRN [address] [place] [address] documented as of this encounter Procedures Procedure Name Priority Date/Time Associated Diagnosis Comments MAMMOGRAPHY BREAST SCREENING TOMOSYNTHESIS BILATERAL 10/15/2021 8:24 AM EST documented in this encounter Results * Mammography Breast Screening Tomosynthesis Bilateral (10/15/2021 8:24 AM EST) Anatomical Region Laterality Modality Breast Bilateral Mammography 10/15/2021 8:24 AM EST Narrative 10/15/2021 9:51 [place] [address] Name: CARLOS MI Exam Date: 10/15/2021 : 1950 Age 71 Gender: F Physician: JULIO PIRES Facility: [facility] Facility HSV: Outpatient Exam: SARAI SCRN [...] MALATHI Dewey 2021-10-15 09:39:17 Procedure Note Provider, Generic [facility] - 10/15/2021 [place] [address] Name: CARLOS MI Exam Date: 10/15/2021 : 1950 Age 71 Gender: F Physician: JULIO PIRES Facility: [facility] Facility HSV: Outpatient Exam: SARAI SCRN [...] Schwab 10/15/2021 Thank you for referring CARLOS CARLOS to [facility]. Legally authenticated by POPE MALATHI Dewey 2021-10-15 09:39:17 us Julio Pires APRN IMG BI PROCEDURES Final Res ult documented in this encounter Visit Diagnoses Not on filedocumented in this encounter Additional Health Concerns Assessment Noted Time A fall risk assessment has been complete d for the patient 07/19/2021 2:12 PM EDT documented as of this encounter Care Teams Mortgage Loan Officer Originator Relationship Specialty Start Date End Date Julio Pires APRN [address] [place] [address] PCP - General 03/23/21 Siria Soriano LPN VALUE-BASED TRANSFORMATION PROGRAM Licensed Practical Nurse 09/22/24 03/21/25 documented as of this encounter
--- OUTSIDE RECORDS SUMMARY | 2025-06-22 18:50 | XMS_ITS | Encounter Summary ---
Author Organization [facility] Address [address] [place] [address] Care Team Providers Care Auto Service Advisor Name Role Phone Maci Driscoll APRN Primary Care Provider [phone] Siria Soriano LPN Unavailable Unavailab le Reason for Visit * Reason Comments Med Refill Encounter Details Date Type Department Care Team (Late st Contact Info) Description 02/11/2023 [facility] [address] [place] [address] Maci Driscoll APRN [address] [place] [address] Social History Tobacco Use Types [...] documented in this encounter Plan of Treatment Upcoming Encounters Date Type Department Care Team (Late st Contact Info) Description 06/23/2025 12:40 PM EDT Office Visit [facility] [address] [place] [address] Maci Driscoll APRN [address] [place] [address] documented as of this encounter Visit Diagnoses Not on filedocumented in this encounter Additional Health Concerns Assessment Noted Time A fall risk assessment has been complete d for the patient 07/25/2022 1:58 PM EDT documented as of this encounter Care Teams Auto Service Advisor Relationship Specialty Start Date End Date Maci Driscoll APRN [address] [place] [address] PCP - General 03/23/21 Siria Soriano LPN VALUE-BASED TRANSFORMATION PROGRAM Licensed Practical Nurse 09/22/24 03/21/25 documented as of this encounter
--- OUTSIDE RECORDS SUMMARY | 2025-06-22 18:50 | XMS_ITS | Clinical Summary ---
Author Organization [facility] Address [address] [place] [address] Care Team Providers Care Sales Project Engineer Name Role Phone AmericoMaci PAUL Primary Care [...] exists ANNUAL WELLNESS VISIT 09/28/2025 09/28/2024 Insurance [facility] MEDICARE ADVANTAGE Care Teams Sales Project Engineer Relationship Specialty Start Date End Date Maci Driscoll APRN [address] [place] [address] PCP - General Family Medicine 02/12/22
--- OUTSIDE RECORDS SUMMARY | 2025-06-22 18:50 | XMS_ITS | Referral Summary ---
Author Organization [employer] ([place], [place], [place], [place]) Address [address] [place] [address] Care Team Providers Care Platinumsmith Name Role Phone Maci Driscoll NP Primary Care Provider [phone] Allergies No known active allergies Medications carvediloL [...] Date Tom rded Speak language other than Macedonian at home Not on file 11/27/2023 Want [...] Plan of Treatment Not on file Insurance [facility] MEDICARE PFFS [employer] MEDICARE PPO Care Teams Platinumsmith Relationship Specialty Start Date End Date Maci Driscoll NP PCP - General Nurse Practitioner 09/23/22
--- OUTSIDE RECORDS SUMMARY | 2025-06-22 18:50 | XMS_ITS | Clinical Summary ---
Author Organization [employer] ([place], [place], [place], [place]) Address [address] [place] [address] Care Team Providers Care Quality Coordinator Name Role Phone Maci Driscoll NP Primary Care Provider [phone] Allergies No known active allergies Medications carvediloL [...] Date Tom rded Speak language other than Persian at home Not on file 11/27/2023 Want [...] MEDICARE PFFS [employer] MEDICARE PPO Care Teams Quality Coordinator Relationship Specialty Start Date End Date Maci Driscoll NP PCP - General Nurse Practitioner 09/23/22
[2025-06-22 18:59] VITALS: BP 183/95; PULSE 72; RESP 18; O2SAT 95; BMI 28.1
--- NOTE | 2025-06-22 19:11 | XR_ITS ---
PROCEDURE INFORMATION: Exam: XR Abdomen Exam date and time: 06/22/2025 7:37 PM Age: 75 years old Clinical indication: Other: Constipation TECHNIQUE: Imaging protocol: Radiologic exam of the abdomen. Views: Frontal supine view of the abdomen. 1 View. COMPARISON: CT ABDOMEN PELVIS W CON 06/20/2025 9:11 AM FINDINGS: Gastrointestinal tract: Non-obstructive bowel gas pattern. Colonic stool burden is within normal limits. Bones/joints: No evidence of acute osseous abnormality. IMPRESSION: No acute findings.
--- NOTE | 2025-06-22 19:12 | ED_ITS ---
<Statement entered by Reza Yao MD - 06/23/25 03:15> I was consulted by the JOSE, and we discussed the complexity of the problems being addressed. I approve the treatment and management plan for this patient's care in the emergency department, thus performing a substantive portion of the medical decision making. Reza Yao MD Discharge Plan Disposition Patient Disposition: Home, Self-Care Prescriptions Prescriptions: No Action felodipine 10 mg tablet extended release 24 hr 10 mg PO DAILY potassium chloride 10 mEq tablet extended release 10 meq PO DAILY Patient Comments: TAKE 1 TABLET BY MOUTH ONCE DAILY. DO NOT CRUSH, CHEW, OR SPLIT simvastatin 40 mg tablet 40 mg PO DAILY loratadine 10 mg tablet 10 mg PO DAILY ibandronate 150 mg tablet 150 mg PO QMONTH carvedilol 25 mg tablet 25 mg PO BID Qty: 180 3RF losartan 100 mg tablet See Rx Instructions .ROUTE .COMPLEX Qty: 90 3RF Dose Instruction: Take 1 tablet by mouth once daily Rx Instructions: Take 1 tablet by mouth once daily baclofen 10 mg tablet 10 mg PO TID Qty: 90 2RF cefadroxil 500 mg capsule 500 mg PO BID 7 Days Qty: 14 0RF ondansetron 4 mg tablet,disintegrating 4 mg PO DAILY PRN (Reason: nausea and vomiting) 5 Days Qty: 20 0RF Referrals Follow up/Referrals: Lauri Duarte II, MD [Staff Physician, Gastroenterology] - See instructions Elizabeth Smart DO [Staff Physician, SPREADER BOX OPERATOR] - See instructions Provider,MD Abdelrahman [Referring, Medical] - See instructions Activity Restrictions/Add. Instructions Additional Instructions/Restrictions: Please follow-up with Dr. Duarte listed above for colonoscopy. Please finish antibiotic as directed. Please use colon cleanout for constipation. Increase your water intake. If any worsening abdominal pain please return to the ER or call your primary care or Dr. Duarte. Clinical Impressions Clinical Impression: Constipation, Pelvic prolapse Instructions Patient Instructions: Uterine Prolapse, Constipation Print Language Print Language: Cameroonian Discharge ED Provider: Reza Yao Adult HPI General Chief complaint: Recheck/Abnormal Lab/Rx Stated complaint: infection in the colon Time Seen by Provider: 06/22/25 18:56 Mode of Arrival: Ambulatory Source of Information: Patient Description of Symptoms (Recalled from ER Triage Doc. by RN): pt reports she was seen in the ED friday and diagnosed with UTI. Pt reports she has not improved, symptoms have worsened. History of Present Illness HPI narrative: 75-year-old female presents to the ED today for complaint of nausea, vomiting and lower abdominal pain. Patient reports that she has not improved in any symptoms. She was just given antibiotics on Friday. Patient was diagnosed with a UTI. She also was given follow-up for pelvic floor prolapse to POOL TABLE OPERATOR. Patient comes in today with complaints that she is sure that she has diverticulitis and she wants to be treated with IV antibiotics. She also has been taking Metamucil twice a day and she has not had a bowel movement. She says this is why her stomach is hurting. Related Data Home Medications ?Medication ?Instructions ?Recorded ?Confirmed loratadine 10 mg tablet 10 mg PO DAILY 07/17/2304/11 simvastatin 40 mg tablet 40 mg PO DAILY 07/17/2304/11 felodipine 10 mg tablet,extended 10 mg PO DAILY 05/05/25 release 24 hr ibandronate 150 mg tablet 150 mg PO QMONTH 11/13/23 potassium chloride 10 mEq 10 meq PO DAILY 12/30/23 tablet,extended release Previous Rx's ?Medication ?Instructions ?Recorded carvedilol 25 mg tablet 25 mg PO BID #180 tabs 01/13 baclofen 10 mg tablet 10 mg PO TID #90 tabs losartan 100 mg tablet See Rx Instructions .Route 0 02/28/25 .COMPLEX #90 tabs cefadroxil 500 mg capsule 500 mg PO BID 7 days #14 cap s 06/20/25 ondansetron 4 mg disintegrating 4 mg PO DAILY PRN naus ea and 06/20/25 tablet vomiting 5 days #20 tabs Allergies Allergy/AdvReac Type Severity Reaction Status Date / Time No Known Allergies Allergy Verified 02/15/25 14:11 [facility] Disclaimer: The information contained in this section may have been updated after the patient was seen, as this information can be updated by other users. Medical History History of colitis History of renal cell cancer Edema of both lower extremities HLD (hyperlipidemia) HTN (hypertension) Family history of chronic ischemic heart disease Surgical History Surgical history unknown History of nephrectomy Family History Other Unknown family medical history Social History Smoking Status: Never smoker alcohol intake: never current occupational status: other Travel in the last 8 weeks?: None Have you lived/traveled outside US in past 30 days?: No Contact w/someone who lives/traveled outside US past 30 days?: No Exposure to someone with infectious disease in past 14 days?: No Do you have a fever (greater than 100.4 F or 38 C)?: No Have you tested positive for COVID-19?: No Exposed to someone with COVID-19 in past 14 days?: No Do you have a sore throat?: No Do you have a cough?: No Do you have any weakness?: No Do you have any diarrhea?: No Are you experiencing any unusual bleeding?: No Do you have any muscle aches/pain?: No Do you have any abdominal pain?: No Are you experiencing loss of taste or smell?: No Other Medical History Have you received the Flu Vaccine for this season: Yes Have you received the Pneumonia Vaccine: No ROS Obtained: Yes Systems reviewed as appropriate & no additional complaints except as documented Constitutional Constitutional: Reports as per HPI Physical Exam General General appearance: alert Head Head exam: normocephalic Eye Eye exam: Present PERRL and EOMI ENT ENT exam: Present normal oropharynx and mucous membranes moist Neck Neck exam: Present full ROM and trachea midline Respiratory Respiratory exam: Present normal lung sounds bilaterally Cardiovascular Cardiovascular exam: Present regular rate, normal rhythm, normal heart sounds, +S1 and +S2 Abdominal Exam Abdominal exam: Present soft, tenderness (Low abdominal tenderness) and normal bowel sounds Extremities Exam Extremities exam: Present full ROM and normal capillary refill Neurological Exam Neurological exam: Present alert, oriented X3 and normal gait Skin Skin exam: Present warm, dry and intact Medical Decision Making Medical Records Screening: Per USPSTF and CDC recommendations, given the prevalence of disease in our region, it is our hospital?s policy to screen for HIV and viral Hepatitis for all patients aged 18 and over and those with ongoing risk factors. Domo Inquiry Pt receiving controlled substance: No Domo was queried for this patient: No Vital Signs: 06/22/25 18:59 06/22/25 19:30 06/22/25 22:31 Temperature 98 F Temperature Source Oral Pulse Rate 70 78 Pulse Rate [Right Brachial] 72 Respiratory Rate 18 16 Blood Pressure 160/87 H 142/74 H Blood Pressure [Right Arm] 183/95 H Blood Pressure Mean 111 Blood Pressure Mean [Right Arm] 124 Blood Pressure Source [Right Arm] Automatic Cuff Blood Pressure Position Supine Blood Pressure Position [Right Arm] Sitting 02 Sat by Pulse Oximetry 95 95 Oxygen Delivery Method Room Air Room Air Lab Data Lab Results 06/22/25 19:48: WBC 10.7, RBC 4.41, Hgb 13.4, Hct 40.2, MCV 91.2, MCH 30.4, MCHC 33.3, RDW 13.2, Plt Count 339, MPV 9.4, Neut % (Auto) 58.9, Lymph % (Auto) 28.7, [place] % (Auto) 9.4 H, Eos % (Auto) 2.0, Baso % (Auto) 0.5, Neut # (Auto) 6.3, Lymph # (Auto) 3.1, [place] # (Auto) 1.0, Eos # (Auto) 0.2, Baso # (Auto) 0.1, Sodium 137, Potassium 3.8, Chloride 106, Carbon Dioxide 25, Anion Gap 9.8, BUN 20 H, Creatinine 1.20 H D, Estimated Creat Clear 52, Estimated GFR 44 L, Est GFR ( Amer) 53 L D, Glucose 91, Calcium 8.8, Magnesium 2.2, Total Bilirubin 0.6, AST 31, ALT 21, Alkaline Phosphatase 70, Total Protein 7.1, Albumin 4.3, Globulin 2.8, Albumin/Globulin Ratio 1.5, Lipase 31 06/22/25 21:34: Urine Color Yellow, Urine Appearance Clear, Urine pH 6.0, Ur Specific [place] 1.015, Urine Protein Negative, Urine Glucose (UA) Negative, Urine Ketones Trace, Urine Blood Negative, Urine Nitrate Negative, Urine Bilirubin Negative, Urine Urobilinogen 0.2, Ur Leukocyte Esterase Negative, Urine RBC Occasional, Urine WBC 5-10, Ur Squamous Epith Cells 10-20, Urine Bacteria 1+ 06/22/25 19:48 06/22/25 19:48 Orders (Tests/Meds): ED MEDICATIONS Discontinued Medications Generic Name Dose Route Start Last Admin Trade Name Mino PRN Reason Stop Dose Admin Sodium Chloride 1,000 mls @ 999 mls/hr 06/22/25 19:06 06/22/25 19:32 Sod Chlor 0.9% 1000ml Bag IV 06/22/25 20:06 999 mls/hr .Q1H1M ONE Administration Ceftriaxone Sodium 2 gm/ 100 mls @ 200 mls/hr 06/22/25 20:30 06/22/25 20:34 Sodium Chloride IV 07/02/25 20:29 200 mls/hr Q24H REBECCA Administration Ondansetron HCl 4 mg 06/22/25 19:11 06/22/25 19:33 Ondansetron 4mg/2ml Vial IV 06/22/25 19:12 4 mg ONCE ONE Administration ORDERS Category Date Time Status KUB (single view) [XR KUB] Stat Exams 06/22/25 19:11 Completed CBC [Complete Blood Count Auto Diff] Stat Lab 06/22/25 19:48 Completed Comprehensive Metabolic Panel Stat Lab 06/22/25 19:48 Completed Lipase Stat Lab 06/22/25 19:48 Completed Magnesium Stat Lab 06/22/25 19:48 Completed Urinalysis and Microscopic Stat Lab 06/22/25 21:34 Completed Medical Decision Narrative: patient is a 75-year-old female presenting to the emergency department for evaluation of lower abdominal pain and constipation. Patient is hemodynamically stable and nontoxic-appearing upon arrival, afebrile. Differential diagnosis includes UTI, diverticulitis, constipation, among others. Workup will be conducted with hematologic labs, specific imaging. Initial inventions include crystalloid bolus, nausea meds. Initial workup reviewed by me hematologic labs are remarkable for normal white count, BUN and creatinine slightly elevated. Otherwise labs were unremarkable. Imaging negative bowel obstruction. Please see formal report for radiology read. She has no bowel obstruction. She does have constipation. I will give her constipation cleanout to use for home. She does have constipation. I told her to continue on her antibiotics that she was given yesterday. She had a CT scan yesterday with no diverticulitis. I discussed with Dr. Yao so we did not rescan her. Discussed this with patient. Patient will finish the antibiotics and do the bowel cleanout regimen. She will continue to drink fluids and rest. Follow-up with GI. I did give her the number for that she will need a colonoscopy. Patient safe for discharge home. Critical Care Critical Care Time Critical Care Time: No
--- NOTE | 2025-06-22 19:28 | ECG_ITS ---
APPROVED REPORT Exam: Resting ECG HR:69 bpm ECG Measurements Heart Rate 69 AXES GA 170 P 64 QRSd 96 QRS 41 QT 404 T 43 QTc 424 Conclusion SINUS RHYTHM POSSIBLE INFERIOR MYOCARDIAL INFARCTION , PROBABLY OLD [30 ms Q WAVE IN II/aVF] BORDERLINE ECG UNCONFIRMED REPORT Electronically signed by : ROBERT HARRIS, 06/24/2025 00:38:54
[2025-06-22 19:30] VITALS: BP 160/87; PULSE 70; O2SAT 95
[2025-06-22] MEDS: 0.9 % SODIUM CHLORIDE 1000ML 1,000 ML 999 ML IV (19:32)
[2025-06-22] MEDS: ONDANSETRON 4MG/2ML VIAL 4 MG IV (19:33)
[2025-06-22 20:00] LABS: Hematocrit 40.2 % (37.0-47.0); Hemoglobin 13.4 g/dL (12.2-16.2); Immature Granulocytes % 0.5 %; Mean Corpuscular HGB Conc 33.3 g/dL (31.8-35.4); Mean Corpuscular Hemoglobin 30.4 pg (27.0-31.2); Mean Corpuscular Volume 91.2 fl (81-99); Nucleated Red Blood Cells % 0 %; Platelet Count 339 K/mm3 (142-424); Red Blood Count 4.41 M/mm3 (4.20-5.40); Red Cell Distribution Width-SD 43.5 fL; White Blood Count 10.7 K/mm3 (4.8-10.8)
[2025-06-22 20:10] LABS: Alanine Aminotransferase 21 U/L (12-78); Albumin Level 4.3 g/dl (3.5-5.0); Albumin/Globulin Ratio 1.5 (1.1-1.8); Alkaline Phosphatase 70 U/L (38-126); Anion Gap 9.8 mEq/L (5-15); Aspartate Amino Transferase 31 U/L (14-36); Bilirubin,Total 0.6 mg/dl (0.2-1.3); Blood Urea Nitrogen 20 mg/dl (7-17); Calcium 8.8 mg/dl (8.4-10.2); Carbon Dioxide 25 mmol/L (22.0-30.0); Chloride 106 mmol/L (98-107); Creatinine Clearance Estimated 52 mL/min (50-200); Creatinine,Serum 1.20 mg/dl (0.52-1.04); Estimated Glomerular Filt Rate 44 ml/min (>60); GFR (African American) 53 ML/MIN (>60); Globulin 2.8 g/dL (1.3-3.2); Glucose 91 mg/dl (74-100); Lipase 31 U/L (23-300); Magnesium 2.2 mg/dl (1.6-2.3); Potassium 3.8 mmoL/L (3.5-5.1); Sodium 137 mmol/L (136-145); Total Protein,Serum 7.1 g/dl (6.3-8.2)
[2025-06-22 21:39] LABS: Microscopic, Urine URINE MICROSCOPIC (MICROSCOPIC)
[2025-06-22 21:51] LABS: Bilirubin,Urine Negative (Negative); Color,Urine YELLOW (Yellow); Glucose,Urine (UA) Negative (Negative); Ketones,Urine TRACE (Negative); Leukocyte Esterase,Urine Negative (Negative); PH,Urine 6.0 (5.0-8.5); Protein,Urine Negative (Negative); Specific Gravity, Urine 1.015 (1.005-1.030); Urobilinogen,Urine 0.2 EU/dl (0.2)
[2025-06-22 22:03] LABS: Bacteria,Urine 1+ /lpf; RBC,Urine Occasional #/hpf (0-3)
[2025-06-22 22:31] VITALS: BP 142/74; PULSE 78; RESP 16; TEMP 36.6; O2SAT 98
== END 2025-06-22 22:33 | disposition home or self-care (01) ==
PROVIDERS: Nurse Practitioner; Emergency Provider Student in an Organized Health Care Education/Training Program; PCP Nurse Practitioner Family
DX: R10.30 Lower abdominal pain, unspecified (principal); R11.2 Nausea with vomiting, unspecified; K59.00 Constipation, unspecified; N81.9 Female genital prolapse, unspecified; I10 Essential (primary) hypertension; E78.5 Hyperlipidemia, unspecified
CPT/HCPCS: 74018; 80053; 81001; 83690; 83735; 85025; 93005; 96361; 96365; 96366; 96375; 99285; J0696; J2405; J7030

== ENCOUNTER 2025-07-26 12:04 | Outpatient (CLI) | payer MEDICARE, SELFPAY ==
--- OUTSIDE RECORDS SUMMARY | 2022-02-12 09:01 | XMS_ITS | Encounter Summary ---
[facility] Address [address] [place] [address] Care Team Providers Care Retail Shift Manager Name Role Phone Maci Driscoll APRN Primary Care Provider Reason for Referral * Diagnostic Imaging (Routine) - Closed Specialty Diagnoses / Procedures Referred By Contac t Referred To Contact Obstetrics and Gynecology Diagnoses Postmenopausal status (age-related) (natural) Procedures DEXA Bone Density Axial Maci Driscoll, COMPUTER SYSTEMS TECHNICIAN [address] [place] [address] Phone: tel: fax: [facility] OBGYN [address] [place] [address] Phone: tel: fax: Referral ID Status Reason Start Date Expiration Date Visits Re quested Visits Authorized [id number] Closed 02/07/2022 02/07/2023 1 1 Reason for Visit * Diagnostic Imaging (Routine) - Closed Specialty Diagnoses / Procedures Referred By Contac t Referred To Contact Obstetrics and Gynecology Diagnoses Postmenopausal status (age-related) (natural) Procedures DEXA Bone Density Axial Maci Driscoll, [place] [address] Phone: tel: fax: [facility] OBGYN [address] [place] [address] Phone: tel: fax: Referral ID Status Reason Start Date Expiration Date Visits Re quested Visits Authorized [id number] Closed 02/07/2022 02/07/2023 1 1 Encounter Details Date Type Department Care Team (Latest Contact Info) Description 02/12/2022 9:01 AM EDT Hospital Encounter [facility] [address] [phone] [...] (natural) documented in this encounter Care Teams Retail Shift Manager Relationship Specialty Start Date End Date Maci Driscoll APRN [address] [address] PCP - General Family Medicine 02/12/22 documented as of this encounter
--- OUTSIDE RECORDS SUMMARY | 2025-06-27 09:00 | XMS_ITS | Encounter Summary ---
Author Organization [facility] Address [address] [place] [address] Care Team Providers Care Screw Machine Operator Swiss Type Name Role Phone Maci Driscoll APRN Primary Care Provider [phone] Reason for Referral * Consultation (Routine) - Authorized Specialty Diagnoses / Procedures Referred By Bran britt Referred To Contact Gastroenterology Diagnoses Constipation, unspecified constipation type Maci Driscoll APRN [address] [place] [address] Phone: tel: fax: Referral ID Status Reason Start Date Expiration Date Visits Requested Visits Authorized [id number] Authorized Specialty Services Required 06/27/2025 12/27/2026 1 1 Scheduling Instructions [facility] [place] Reason for Visit * Reason Comments Constipation Abdominal Pain nausea Encounter Details Date Type Department Care Team (Late Contact Info) Description 06/27/2025 9:00 AM EDT Office Visit [facility] [address] [place] [address] Maci Driscoll APRN [address] [place] [address] Abdominal pain, unspecified abdominal location [...] week 09/22/2024 How often do you attend [facility] or alevism services? Never 09/22/2024 Do you belong to any clubs o r organizations such as protestant groups, unions, fraternal or athletic groups, or [...] Recorded Patient Health Questionnaire-2 Score 0 06/27/2025 [facility] - Occupational [...] any time in the past 12 m [facility], were you homeless or living in a care home (including now)? No 09/22/2024 AUDIT-C Answer Date [...] the past 12 months has th e [employer], gas, oil, or water company threatened to [...] Not at all 06/27/2025 9:32 AM JOSE ARAMNDOT Renée Grace Patient Health Questionnaire -9 Score 0 06/27/2025 9:32 AM JOSE ARMANDOT Renée Grace * Calculated C-SSRS Risk Score (Lifetime/Recent) Answer Date of Assessment Author No Risk Indicated 06/27/2025 10:01 AM EDT Renée Nam * If you checked off any problems on this questionnaire so far, Question Answer Date of Assessment Author How difficult have these problems made it for you to do your work, take care of things at home, or get along with other people? Not difficult at all 06/27/2025 9:32 AM JOSE ARMANDOT Renée Grace * Question Answer Date of Assessment Author 1. Wish to be (Past 1 Month) No 025 10:01 AM EDRenée Morales 2. Non-Specific Active Suici finn Thoughts (Past 1 Month) No 06/27/2025 10:01 AM EDT Ugo Grace 6. Suicidal Behavior (Lifetime) No 10:01 AM EDT Renée Grace documented as of this encounter Miscellaneous Notes * Clinician Note - Renée Grace - 06/27/2025 9:00 AM EDT Fall risk protocol in place, pt in chair with arms * Progress Notes - Maci Driscoll, TELEPHONIC RN - 06/27/2025 9:00 AM EDT Subjective Alexa [...] min Stress: No Stress Concern Present (09/22/2024) [place] [facility] - Occupational Stress Questionnaire Feeling of Stress : Not at all Social Connections: Socially Isolated (09/22/2024) Social Connection and Isolation Panel Frequency of Communication with Friends and Family: More than three times a week Frequency of Social Gatherings with Friends and Family: More than three times a week Attends Worship Services: Never Active Member of Clubs or [...] Years (2 of 2 - PPSV23) 10/03/2020 [id number] Vaccine (6 - season) 2025 [facility]- SDOH [...] skin gerardo present. 06/28/2025 2:52 PM EDT [facility] Urine Urine specimen obtained by clean catch procedure / Unknown Non-blood Collection / Unknown 06/27/2025 10:12 AM EDT 06/27/2025 10:12 AM EDT Maci Driscoll APRN LAB MICROBIOLOGY - GENERAL ORDERABLES Final Result [facility] [address] [place] [address] * C-Reactive Protein, High Sensitivity, Plasma (06/27/2025 10:12 AM EDT) CRP, High Sensitivity, Plasma 0.59 <=3 mg/L 06/27/2025 5:46 PM EDT [facility] Blood Venous blood specimen / Unknown Venipuncture / Unknown 06/27/2025 10:12 AM EDT 06/27/2025 10:12 AM EDT Narrative [facility] - 06/27/2025 5:46 PM EDT hs-CRP [...] risk of future cardiovascular event. Maci Driscoll [facility] BLOOD ORDERABLES Final Result [facility] [address] [place] [address] * (ABNORMAL) Comprehensive Metabolic Panel, Plasma (06/27/2025 10:12 AM EDT) Glucose, Plasma 102(H) 74 - 99 mg/dL 06/27/2025 5:11 PM EDT [facility] BUN, Plasma 14 8 - 23 mg/dL 06/27/2025 5:11 PM EDT [facility] Creatinine, Plasma 0.96 0.60 - 1.10 mg/dL 06/27/2025 5:11 PM EDT [facility] BUN/Creatinine Ratio 15 06/27/2025 5:11 PM EDT [facility] Sodium, Plasma 141 136 - 145 mmol/L 06/27/2025 5:11 PM EDT [facility] Potassium, Plasma 4.4 3.6 - 4.9 mmol/L 06/27/2025 5:11 PM EDT [facility] Chloride, Plasma 106 97 - 107 mmol/L 06/27/2025 5:11 PM EDT [facility] CO2, Plasma 22 22 - 29 mmol/L 06/27/2025 5:11 PM EDT [facility] Anion Gap 13 6 - 16 mmol/L 06/27/2025 5:11 PM EDT [facility] Total Calcium, Plasma 9.6 8.9 - 10.2 mg/dL 06/27/2025 5:11 PM EDT [facility] Total Protein 7.1 6.3 - 7.9 g/dL 06/27/2025 5:11 PM EDT [facility] Albumin, Plasma 4.3 3.5 - 5.2 g/dL 06/27/2025 5:11 PM EDT [facility] AST, Plasma 23 10 - 35 U/L 06/27/2025 5:11 PM EDT [facility] ALT, Plasma 16 10 - 35 U/L 06/27/2025 5:11 PM EDT [facility] Alkaline Phosphatase, Plasma 69 46 - 142 U/L 06/27/2025 5:11 PM EDT [facility] Total Bilirubin, Plasma 0.5 0.2 - 1.1 mg/dL 06/27/2025 5:11 PM EDT [facility] eGFRcr 61.8 mL/min/1.7 3m*2 06/27/2025 5:11 PM EDT [facility] Comment:Reported eGFRcr in m L/min/1.73m2 is based the CKD-EPI 2020 equation that does not use a race coefficient. Blood Venous blood specimen / Unknown Venipuncture / Unknown 06/27/2025 10:12 AM EDT 06/27/2025 10:12 AM EDT us Maci Driscoll APRN LAB BLOOD ORDERABLES Final Result [facility] [address] [place] [address] * CBC and Differential (06/27/2025 10:12 AM EDT) WBC Count 9.44 3.70 - 10.30 10*3/uL LAB HEMATOLOGY METHOD 06/27/2025 4:26 PM EDT [facility] RBC Count 4.45 3.90 - 5.20 10*6/uL LAB HEMATOLOGY METHOD 06/27/2025 4:26 PM EDT [facility] HGB 13.6 11.2 - 15.7 g/dL LAB HEMATOLOGY METHOD 06/27/2025 4:26 PM EDT [facility] HCT 41.5 34.0 - 45.0 % LAB HEMATOLOGY METHOD 06/27/2025 4:26 PM EDT [facility] Platelet Count 354 155 - 369 10*3/uL LAB HEMATOLOGY METHOD 06/27/2025 4:26 PM EDT [facility] MCV 93 79 - 98 fL LAB HEMATOLOGY METHOD 06/27/2025 4:26 PM EDT [facility] MCH 30.6 26.0 - 32.0 pg LAB HEMATOLOGY METHOD 06/27/2025 4:26 PM EDT [facility] MCHC 32.8 30.7 - 35.5 g/dL LAB HEMATOLOGY METHOD 06/27/2025 4:26 PM EDT [facility] RDW 13.4 11.5 - 14.5 % LAB HEMATOLOGY METHOD 06/27/2025 4:26 PM EDT [facility] MPV 10.0 8.8 - 12.5 fL LAB HEMATOLOGY METHOD 06/27/2025 4:26 PM EDT [facility] nRBC 0.0 <=0.0 per 100 WBCs LAB HEMATOLOGY METHOD 06/27/2025 4:26 PM EDT [facility] Differential Type Automated LAB HEMATOLOGY METHOD 06/27/2025 4:26 PM EDT [facility] Neutrophils % 62 % LAB HEMATOLOGY METHOD 06/27/2025 4:26 PM EDT [facility] Lymphocytes % 25 % LAB HEMATOLOGY METHOD 06/27/2025 4:26 PM EDT [facility] Monocytes % 9 % LAB HEMATOLOGY METHOD 06/27/2025 4:26 PM EDT [facility] Eosinophils % 2 % LAB HEMATOLOGY METHOD 06/27/2025 4:26 PM EDT [facility] Basophils % 1 % LAB HEMATOLOGY METHOD 06/27/2025 4:26 PM EDT [facility] Immature Granulocytes % 1 % LAB HEMATOLOGY METHOD 06/27/2025 4:26 PM EDT [facility] Neutrophils Absolute 5.94 1.60 - 6.10 10*3/uL LAB HEMATOLOGY METHOD 06/27/2025 4:26 PM EDT [facility] Lymphocytes Absolute 2.34 1.20 - 3.90 10*3/uL LAB HEMATOLOGY METHOD 06/27/2025 4:26 PM EDT [facility] Monocytes Absolute 0.83 0.30 - 0.90 10*3/uL LAB HEMATOLOGY METHOD 06/27/2025 4:26 PM EDT [facility] Eosinophils Absolute 0.21 0.00 - 0.50 10*3/uL LAB HEMATOLOGY METHOD 06/27/2025 4:26 PM EDT [facility] Basophils Absolute 0.07 0.00 - 0.10 10*3/uL LAB HEMATOLOGY METHOD 06/27/2025 4:26 PM EDT [facility] Immature Granulocytes Absolute 0.05 0.00 - 0.06 10*3/uL LAB HEMATOLOGY METHOD 06/27/2025 4:26 PM EDT [facility] Blood Venous blood specimen / Unknown Venipuncture / Unknown 06/27/2025 10:12 AM EDT 06/27/2025 10:12 AM EDT Narrative [facility] - 06/27/2025 4:26 PM EDT Therapeutic decision making should be based on absolute values, rather than percentages. Maci Driscoll TELEPHONIC RN LAB BLOOD ORDERABLES Final Result Performing Organization Address City/State/[facility] Co de Phone Number [facility] [address] [place] [address] * (ABNORMAL) POCT Urinalysis Dipstick (06/27/2025 9:51 AM EDT) POCT Urine Color Yellow POCT Urine Clarity Clear POCT Glucose Urine Negative Negative mg/dL POCT Bilirubin, Urine Negative Negative POCT Ketones, Urine Negative Negative mg/dL POCT Specific [place], Urine 1.010 POCT Blood, Urine Trace(A) Negative POCT pH, Urine 5.5 5.0 to 8.0 POCT Protein, Urine Negative Negative mg/dL POCT Urobilinogen, Urine 0.2 0.2, 1 E.U./dL POCT Nitrite, Urine Negative Negative POCT Leukocyte Esterase, Urine Negative Negative Test Strip Lot Number [id number] Test Strip Lot Expiration 06/08/2026 Urine Urine [...] documented as of this encounter Care Teams Screw Machine Operator Swiss Type Relationship Specialty Start Date End Date Maci Driscoll, PAUL [facility] [place] [address] [place] [address] PCP - General 03/23/21 documented as of this encounter
--- OUTSIDE RECORDS SUMMARY | 2025-07-06 09:40 | XMS_ITS | Encounter Summary ---
Author Organization Healthcare Address [address] [place] [address] Care Team Providers Care Criminal Investigator Name Role Phone Maci Driscoll APRN Primary Care Provider [phone] Reason for Visit * Reason Comments Back Pain Low back pain on rig ht side. Encounter Details Date Type Department Care Team (Late st Contact Info) Description 07/06/2025 9:40 AM EDT Office Visit [facility] [address] [place] [address] Maci Driscoll APRN [address] [place] [address] Chronic right hip pain (Primary Dx); Benign essential hypertension Social History Tobacco Use Types Packs/Day Years Used Date Smoking Tobacco: Never Passive Smoke Exposure: Past Smokeless Tobacco: Never Alcohol Use Standard Drinks/Week Comments Not Currently 0 (1 standard drink = 0.6 oz pur e alcohol) Social Connection and Isolation Panel Answer Date Recorded In a typical week, how many times do you talk on the phone with family, friends, or neighbors? More than three times a week 09/22/2024 How often do you get togethe r with friends or relatives? More than three times a week 09/22/2024 How often do you attend chur ch or church services? Never 09/22/2024 Do you belong to any clubs o r organizations such as bahai groups, unions, fraternal or athletic groups, or [...] you are drinking? Patient does not drink 4 Q3: How often do you have si x or more drinks on one occasion? Never 09/22/2024 PHQ-2 Answer Date Recorded Patient Health Questionnaire-2 Score 0 07/06/2025 [facility] - Occupational Stress Questionnaire [...] exercise at this level? 0 min 09/22/2024 PHQ-9 Answer Date Recorded Patient Health Questionnaire-9 Score 0 07/06/2025 Humiliation, Afraid, Rape, and Kick questionnair e Answer Date Recorded Within the last year, have y ou been afraid of your partner or ex-partner? No 07/06/2025 Within the last year, have y ou been humiliated or emotionally abused in other ways by your partner or ex-partner? No Within the last year, have y ou been kicked, hit, slapped, or otherwise physically hurt by your partner or ex-partner? No 07/06/2025 Within the last year, have y ou been raped or forced to have any kind of sexual activity by your partner or ex-partner? No 07/06/2025 AUDIT-C Answer Date Recorded Q1: How often do you have a drink containing alcohol? Never 07/06/2025 Q2: How many drinks containi ng alcohol do you have on a typical day when you are drinking? Patient does not drink 5 Q3: How often do you have si x or more drinks on one occasion? Never 07/06/2025 Hunger Vital Sign Answer Date Recorded Within the past 12 months, y ou worried that your food would run out before you got the money to buy more. Never true 07/06/20 Within the past 12 months, t he food you bought just didn't last and you didn't have money to get more. Never true 07/06/2025 PRAPARE - Transportation Answer Date Re corded In the past 12 months, has l ack of transportation kept you from medical appointments or from getting medications? No 06/11 In the past 12 months, has l ack of transportation kept you from meetings, work, or from getting things needed for daily living? No 07/06/2025 Housing Stability Vital Sign Answer Donnie e Recorded In the last 12 months, was t here a time when you were not able to pay the mortgage or rent on time? No 07/06/2025 In the past 12 months, how m any times have you moved where you were living? 0 07/06/2025 At any time in the past 12 m [facility], were you homeless or living in a halfway (including now)? No 07/06/2025 Utilities Answer Date Recorded In the past 12 months has th e electric, gas, oil, or water company threatened to shut off services in your home? No 07/06/2025 PHQ-2A Answer Date Recorded Patient Health Questionnaire-2 Score 2 08/21/2023 Comments No Sex and Gender Information Value Date Recorded Sex Assigned at Not on file Legal Sex Female 6:25 PM EDT Gender Identity Not on file Sexual Orientation Not on file documented as of this encounter Last Filed Vital Signs Vital Sign Reading Time Taken Comments Blood Pressure 128/84 07/06/2025 9:47 AM EDT Pulse 59 07/06/2025 9:47 AM EDT Temperature 36.5 C (97.7 F) 07/06/2025 9:47 AM EDT Respiratory Rate - - Oxygen Saturation 96% 07/06/2025 9:47 AM EDT Inhaled Oxygen Concentration - - Weight 78.7 kg (173 lb 8 oz) 07/06/2025 9:47 AM EDT Height 170.2 cm (5' 7 ) 07/06/2025 9:47 AM EDT Body Mass Index 27.17 07/06/2025 9:47 AM EDT documented in this encounter Functional Status * AUDIT-C Score Answer Date of Assessment Author 0 07/06/2025 9:47 AM Renée Cohen * Question Answer Date of Assessment Author Q1: How often do you have a drink containing alcohol? Never 07/06/2025 9:47 AM Renée Cohen Q2: How many drinks containing alcohol do you have on a typical day when you are drinking? Patient does not drink 07/06/2025 9:47 AM Renée Cohen Q3: How often do you have six or more drinks on one occasion? Never 07/06/2025 9:47 AM Renée Cohen * Over the past 2 weeks, how often have you been bothered by any of the following problems? Question Answer Date of Assessment Author Little interest or pleasure in doing things Not at all 07/06/2025 9:44 AM Renée Cohen Feeling down, depressed, or hopeless Not at all 07/06/2025 9:44 AM Renée Cohen Patient Health Questionnaire -2 Score 0 07/06/2025 9:44 AM Renée Cohen * Question Answer Date of Assessment Author Trouble falling or staying a sleep, or sleeping too much Not at all 07/06/2025 9:44 AM Renée Cohen Feeling tired or having carmela le energy Not at all 07/06/2025 9:44 AM Renée Cohen Poor appetite or overeating Not at all 07/06/2025 9: 44 AM Renée Cohen Feeling bad about yourself - or that you are a failure or have let yourself or your family down Not at all 07/06/2025 9:44 AM Renée Cohen Trouble concentrating on thi ngs, such as reading the newspaper or watching television Not at all 07/06/2025 9:44 AM Renée Cohen Moving or speaking so slowly that other people could have noticed? Or the opposite - being so fidgety or restless that you have been moving around a lot more than usual. Not at all 07/06/2025 9:44 AM Renée Acevedo Thoughts that you would be b shirley off or hurting yourself in some way Not at all 07/06/2025 9:44 AM EDT Renée Grace Patient Health Questionnaire -9 Score 0 07/06/2025 9:44 AM EDT Renée Grace * Calculated C-SSRS Risk Score (Lifetime/Recent) Answer Date of Assessment Author No Risk Indicated 07/06/2025 9:46 AM EDT Renée Butler * If you checked off any problems on this questionnaire so far, Question Answer Date of Assessment Author How difficult have these problems made it for you to do your work, take care of things at home, or get along with other people? Not difficult at all 07/06/2025 9:44 AM EDT Renée Grace * Question Answer Date of Assessment Author 1. Wish to be (Past 1 Month) No 025 9:46 AM EDT Renée Grace 2. Non-Specific Active Suici finn Thoughts (Past 1 Month) No 07/06/2025 9:46 AM EDT Renée Grace 6. Suicidal Behavior (Lifetime) No 9:46 AM EDT Renée Grace documented as of this encounter Miscellaneous Notes * Clinician Note - Renée Grace - 07/06/2025 9:40 AM EDT Fall risk protocol in place, pt in chair with arms * Progress Notes - aMci Driscoll APRN - 07/06/2025 9:40 AM EDT Subjective Alexa Mi Pt is here with continues right side and hip pain Had labs and urine done and they were negative last week thinks might be more her hip now Hurts to stand achy at night Is in pain clnic for chronic back pain and had gone to PT and thinks that worsened her hip pain Knees are pretty achy right now also waiting to get injected after back sorted out Discussed will try prednisone taper for hip Past Medical History[1] Surgical History[2] Family History[3] [...] on file Food Insecurity: No Food Insecurity (07/06/2025) Hunger Vital Sign Worried About Running Out of Food in the Last Year: Never true Ran Out of Food in the Last Year: Never true Transportation Needs: No Transportation Needs (07/06/2025) PRAPARE - Transportation Lack of Transportation (Medical): No Lack of Transportation (Non-Medical): No Physical Activity: Inactive (09/22/2024) Exercise Vital Sign Days of Exercise per Week: 0 days Minutes of Exercise per Session: 0 min Stress: No Stress Concern Present (09/22/2024) [place] [facility] - Occupational Stress Questionnaire Feeling of Stress : Not at all Social Connections: Socially Isolated (09/22/2024) Social Connection and Isolation Panel Frequency of Communication with Friends and Family: More than three times a week Frequency of Social Gatherings with Friends and Family: More than three times a week Attends [employer] Services: Never Active Member of Clubs or Organizations: No Attends Club or Organization Meetings: Never Marital Status: Intimate Partner Violence: Not At Risk (07/06/2025) Humiliation, Afraid, Rape, and Kick questionnaire Fear of Current or Ex-Partner: No Emotionally Abused: No Physically Abused: No Sexually Abused: No Housing Stability: Low Risk (07/06/2025) Housing Stability Vital Sign Unable to Pay for Housing in the Last Year: No Number of Times Moved in the Last Year: 0 Homeless in the Last Year: No Medications Ordered Prior to Encounter[4] Health Maintenance Due Topic Date Due [facility]-Hepatitis C Screening Never done [facility]-Bone Density Scan Never done [facility]-DTaP,Tdap,and Td Vaccines (1 - Tdap) Never done [facility]-Pneumococcal Vaccine: 50+ Years (2 of 2 - PPSV23) 10/03/2020 [id number] Vaccine ( season) 2025 [facility]-RSV Vaccine: 60+ Years or (1 - 1-dose 75+ series) Never done [facility]-Zoster Vaccines (1 of 2) 04/25/2025 [facility]-Influenza Vaccine (1) 07/11/2025 Review of Systems Constitutional: Negative. HENT: Negative. Respiratory: Negative. Cardiovascular: Negative. Gastrointestinal: Negative. Genitourinary: Negative. Musculoskeletal: Positive for arthralgias and gait problem. Psychiatric/Behavioral: Negative. Objective Vitals: 07/06/25 0947 BP: 128/84 Pulse: 59 Temp: 36.5 ??C (97.7 ??F) SpO2: 96% Physical Exam Vitals and nursing note reviewed. Constitutional: Appearance: She is obese. Cardiovascular: Rate and Rhythm: Normal rate and regular rhythm. Pulses: Normal pulses. Heart sounds: Normal heart sounds. Pulmonary: Effort: Pulmonary effort is normal. Breath sounds: Normal breath sounds. Neurological: General: No focal deficit present. Mental Status: She is alert and oriented to person, place, and time. Psychiatric: Mood and Affect: Mood normal. Behavior: Behavior normal. Thought Content: Thought content normal. Judgment: Judgment normal. Assessment/Plan Diagnoses and all orders for this visit: Chronic right hip pain - predniSONE (Deltasone) 20 MG tablet; Take 2 tablets by mouth daily for 3 days, THEN 1 tablet daily for 3 days, THEN 0.5 tablets daily for 3 days. Will try prednisone if no help to follow up Benign essential hypertension - felodipine ER (Plendil) 10 MG 24 hr tablet; Take 1 tablet by mouth daily. [1] Past Medical History: Diagnosis Date Cancer of kidney (CMS/HCC) [2] Past Surgical History: Procedure Laterality Date DILATION AND CURETTAGE OF UTERUS N/A Dilation And Curettage from [facility] FOOT SURGERY N/A Foot Surgery from [facility] TUBAL LIGATION N/A Tubal Ligation from [facility] [3] Family History Problem Relation Name Age of Onset Stroke Father Heart attack Mother [4] Current Outpatient Medications on File Prior to Visit Medication Sig Dispense Refill carvedilol (Coreg) 12.5 MG tablet Take 1 [...] by mouth 1 (one) time each day. baclofen (Lioresal) 10 MG tablet Take 1 tablet (10 mg) by mouth 3 (three) times a day. (Patient nottaking: Reported on 07/06/2025) carvedilol (Coreg) 6.25 MG tablet Take 1 tablet (6.25 mg) by mouth 2 (two) times a day with meals. (Patient not taking: Reported on 07/06/2025) 180 tablet 3 No current facility-administered medications on file prior to visit. documented in this encounter Plan of Treatment Not on file documented as of this encounter Visit Diagnoses Diagnosis Chronic right hip pain- Primary Benign essential hypertension Essential hypertension, benign documented in this encounter Additional Health Concerns Assessment Noted Time PHQ-9 Depression Total Score: 0 07/06/20 25 9:44 AM EDT A fall risk assessment has been complete d for the patient 07/06/2025 9:44 AM EDT A Body Mass Index follow-up plan has been documented for the patient 06/27/2025 10:26 AM EDT documented as of this encounter Care Teams Criminal Investigator Relationship Specialty Start Date End Date Maci Driscoll APRN [address] [place] [address] PCP - General 03/23/21 documented as of this encounter
--- OUTSIDE RECORDS SUMMARY | 2025-07-26 12:08 | XMS_ITS | Encounter Summary ---
Author Organization [facility] Address [address] [place] [address] Care Team Providers Care Warehouse Manager Name Role Phone Maci Driscoll APRN Primary Care Provider [phone] Encounter Details Date Type Department Care Team (Latest Contact Info) Description 07/06/2025 Travel Social History Tobacco Use Types Packs/Day Years [...] often do you attend chur ch or roman catholic services? Never 09/22/2024 Do you belong to any clubs o r organizations such as voodoo groups, unions, fraternal or athletic groups, or [...] Recorded Patient Health Questionnaire-2 Score 0 07/06/2025 [facility] - Occupational Stress Questionnaire Answer Date Recorded [...] money to buy more. Never true 07/06/20 25 Within the past 12 months, t he [...] any time in the past 12 m [facility], were you homeless or living in a long-term (including now)? No 07/06/2025 Utilities Answer Date [...] on file documented as of this encounter Functional Status * AUDIT-C Score [...] way Not at all 07/06/2025 9:44 AM Reéne Cohen Patient Health Questionnaire -9 Score 0 07/06/2025 9:44 AM Renée Cohen * Calculated C-SSRS Risk Score (Lifetime/Recent) Answer Date of Assessment Author No Risk Indicated 07/06/2025 9:46 AM Renée Acevedo * If you checked off any problems on this questionnaire so far, Question Answer Date of Assessment Author How difficult have these problems made it for you to do your work, take care of things at home, or get along with other people? Not difficult at all 07/06/2025 9:44 AM Renée Cohen * Question Answer Date of Assessment Author 1. Wish to be (Past 1 Month) No 025 9:46 AM Renée Cohen 2. Non-Specific Active Suici finn Thoughts (Past 1 Month) No 07/06/2025 9:46 AM Renée Cohen 6. Suicidal Behavior (Lifetime) No 9:46 AM Renée Cohen documented as of this encounter Plan of [...] documented as of this encounter Care Teams Warehouse Manager Relationship Specialty Start Date End Date Maci Driscoll APRN [address] [place] [address] PCP - General 03/23/21 documented as of this encounter
--- OUTSIDE RECORDS SUMMARY | 2025-07-26 12:08 | XMS_ITS | Encounter Summary ---
Author Organization Healthcare Address [address] [place] [address] Care Team Providers Care Warehouse Supervisor 3Rd Shift Name Role Phone Julio Pires MICROBIOLOGY ANALYST Primary Care Provider [phone] Siria Soriano LPN Unavailable Unavailab le Encounter Details Date Type Department Care Team (Late st Contact Info) Description 10/15/2021 Outside Procedure External Location [address] [place] [address] Julio Pires, MICROBIOLOGY ANALYST [address] [place] [address] Social History Tobacco Use Types [...] AM EST Narrative 10/15/2021 9:51 AM EST [address] [address] Name: CARLOS MI Exam Date: 10/15/2021 : 1950 Age 71 Gender: F Physician: JULIO PIRES Facility: [facility] Facility HSV: Outpatient Exam: SARAI SCRN MAMMO [...] Thank you for referring CARLOS MI to [facility]. Legally authenticated by POPE MALATHI Dewey 2021-10-15 09:39:17 Procedure Note Provider, [facility] - 10/15/2021 [place] [address] Name: CARLOS MI Exam Date: 10/15/2021 : 1950 Age 71 Gender: F Physician: JULIO PIRES Facility: [facility] Facility HSV: Outpatient Exam: SARAI SCRN MAMMO [...] Thank you for referring CARLOS MI to [facility]. Legally authenticated by POPE MALATHI Dewey 2021-10-15 09:39:17 us Julio Pires APRN IMG BI PROCEDURES Final Res ult documented in this encounter Visit Diagnoses Not on filedocumented in this encounter Additional Health Concerns Assessment Noted Time A fall risk assessment has been complete d for the patient 07/19/2021 2:12 PM EDT documented as of this encounter Care Teams Warehouse Supervisor 3Rd Shift Relationship Specialty Start Date End Date Julio Pires APRN [address] [place] [address] PCP - General 03/23/21 Siria Soriano LPN VALUE-BASED TRANSFORMATION PROGRAM Licensed Practical Nurse 09/22/24 03/21/25 documented as of this encounter
--- OUTSIDE RECORDS SUMMARY | 2025-07-26 12:08 | XMS_ITS | Clinical Summary ---
Author Organization [facility] Address [place] [address] Phone Care Team Providers Care Bevel Gear Generator Operator Name Role Phone Unavailable Primary Care Provider [...] - PCV20 or PCV21) 08/08/2021 08/08/2020, 09/27/2016 RSV or 60+ (1 - 1-dose 75+ series) 2025 COVID-19 Vaccine ( season) 2025 09/21/2024, 09/11/2023, 10/11/2022 Influenza Vaccine (#1) 2025 , 08/21/2023, 09/04/2022, Additional history exists Hepatitis B Vaccine Aged Out No longe r eligible based on patient's age to complete this topic Meningococcal B Vaccine Aged Out No l onger eligible based on patient's age to complete this topic
--- OUTSIDE RECORDS SUMMARY | 2025-07-26 12:08 | XMS_ITS | Clinical Summary ---
Author Organization [facility] Address [address] [place] [address] Care Team Providers Care Continuous Yarn Dyeing Machine Operator Name Role Phone Maci Driscoll APRN Primary Care Provider [phone] Allergies No known active allergies Medications loratadine (Claritin) 10 MG tablet Take 1 tablet (10 mg) by mouth 1 (one) time each day. Active Turmeric 500 MG tablet Take 500 mg by mouth 1 (one) time each day. Active carvedilol (Coreg) 6.25 MG tabletIndications: Benign essential hypertension Take 1 tablet (6.25 mg) by mouth 2 (two) times a day with meals. 180 tablet 3 08/21/20 23 Active Additional Information Patient not taking.Reported on 07/06/2025 potassium chloride CR (Klor-Con) 10 MEQ ER tablet Take 1 tablet (10 mEq) by mouth 1 (one) time each day. Do not crush, chew, or split. 90 tablet 3 09/28/20 24 Active baclofen (Lioresal) 10 MG tablet Take 1 tablet (10 mg) by mouth 3 (three) times a day. Active losartan (Cozaar) 100 MG tablet Take 1 tablet (100 mg) by mouth 1 (one) time each day. Active carvedilol (Coreg) 12.5 MG tablet Take 1 tablet (12.5 mg) by mouth 2 (two) times a day with meals. 09/20/20 24 Active ibandronate (Boniva) 150 MG tablet Take 1 tablet by mouth once every 4 weeks. Take in morning with full glass of water on an empty stomach. No food, drink, meds, or lying down for 60 minutes after. 3 tablet 3 12/04/19 25 Active simvastatin (Zocor) 40 MG tablet Take 1 tablet (40 mg) by mouth 1 (one) time each day. 90 tablet 2 12/14/19 25 Active ondansetron ODT (Zofran-ODT) 4 MG disintegrating tablet Dissolve 1 tablet on the tongue daily. 06/20/20 25 Active felodipine ER (Plendil) 10 MG 24 hr tabletIndications: Benign essential hypertension Take 1 tablet by mouth daily. 90 tablet 3 07/06/20 25 Active felodipine ER (Plendil) 10 MG 24 hr tabletIndications: Benign essential hypertension Take 1 tablet (10 mg) by mouth 1 (one) time each day. 90 tablet 3 09/28/20 24 025 Discontinu ed(Reorder ) predniSONE (Deltasone) 20 MG tabletIndications: Chronic right hip pain Take 2 tablets by mouth daily for 3 days, THEN 1 tablet daily for 3 days, THEN 0.5 tablets daily for 3 days. 11 tablet 07/06/20 25 025 Active Problems Problem Noted Date Diagnosed Date Renal cell carcinoma 01/12/2020 DDD (degenerative disc disease), lumbar 10/07/20 17 CAD (coronary artery disease) 01/28/2017 Arthritis 07/22/2016 Benign essential hypertension 02/04/2015 Hyperlipidemia 02/04/2015 Encounters Date Type Department Care Team Description 07/06/2025 9:40 AM EDT Office Visit [facility] [address] [place] [address] Maci Driscoll APRN Chronic right hip pain (Primary Dx); Benign essential hypertension 07/06/2025 Travel 06/28/2025 Results Follow-Up [facility] [address] [place] [address] Maci Driscoll APRN 06/27/2025 9:00 AM EDT Office Visit [facility] [address] [place] [address] Maci Driscoll APRN Abdominal pain, unspecified abdominal location (Primary Dx); Constipation, unspecified constipation type 06/27/2025 Travel from Last 3 Months Immunizations Immunization Administration Dates Next Due Hep A, Adult 06/10/2019,10/30/2018 Influenza, High-dose, Split Virus, Trivalent, Injectable, preservative free 08/31/2024 Influenza, high-dose, quadrivalent 08/21,09/04/2022,08/02/2020,2018,08/18/2018 Influenza, injectable, quadr ivalent, preservative free 11/09/2021 Influenza, injectable, quadr ivalent, preservative free, pediatric 12/30/2017 Shelly COVID-19 Vaccine (Bl ue Cap) 18+ 09/12/2021,02/14/2021 Moderna Covid-19 Vaccine 12y +, Bautista Protein, Preservative free 09/21/2024,09/11/2023 Pfizer-BioNTech COVID-19 Biv alent (Bailey Cap) 12+ years [...] 09/22/2024 How often do you attend chur [employer] or yazidi services? Never 09/22/2024 Do you belong to any clubs o r organizations such as roman catholic groups, unions, fraternal or athletic groups, or [...] Recorded Patient Health Questionnaire-2 Score 0 07/06/2025 [facility] - Occupational Stress Questionnaire Answer Date Recorded [...] any time in the past 12 m [place], were you homeless or living in a mcc (including now)? No 07/06/2025 Utilities Answer Date Recorded In the past 12 months has th e [employer], gas, oil, or water company threatened to [...] F) 07/06/2025 9:47 AM EDT Respiratory Rate 18 09/28/2024 10:18 AM EST Oxygen Saturation 96% 07/06/2025 9:47 AM EDT Inhaled Oxygen Concentration - - Weight 78.7 kg (173 lb 8 oz) 07/06/2025 9:47 AM EDT Height 170.2 cm (5' 7 ) 07/06/2025 9:47 AM EDT Body Mass Index 27.17 07/06/2025 9:47 AM EDT Plan of Treatment Health Maintenance Due Date Last Done Comments UKY-Bone Density Scan 1950 UKY-Hepatitis C Screening 1950 UKY-/Child/Adol SDOH Screenings 1950 UKY-DTaP,Tdap,and Td Vaccines (1 - Tdap) 1969 CT Colonography 1995 FIT-DNA 1995 FIT 1995 FOBT 1995 Sigmoidoscopy 1995 UKY-Pneumococcal Vaccine: 50+ Years (2 of 2 - PPSV23, PCV20, or PCV21) 10/03/2020 08/08/2020, 09/27/2016 UKY-RSV Vaccine: 60+ Years or (1 - 1-dose 75+ series) 2025 UKY-Zoster Vaccines (1 of 2) 04/25/2025 02/28/2025 [id number] Vaccine ( season) 2025 09/21/2024, 09/11/2023, 10/11/2022, Additional history exists UKY-Influenza Vaccine (#1) 07/11/202508/31, 08/21/2023, 09/04/2022, Additional history exists UKY-Medicare Annual Wellness (AWV) 09/28/2025 09/28/2024 UKY- SDOH Screenings 01/06/2026 UKY-Adult SDOH Screenings 01/06/2026 07/06/2025 UKY-Depression Screening 07/06/2026 025, 07/06/2025, 07/25/2022 Colonoscopy 09/23/2032 09/23/2022, 01/27/2012 UKY-Colorectal Cancer Screening 09/23/2032 UKY-Hepatitis A Vaccines Aged Out 06/10/2019, 10/11 No longer eligible based on patient's age to complete this topic UKY-Breast Cancer Screening Discontinued 05/15/2023, 1 12/16/2020 UKY-Obesity Intervention Completed 025, 09/28/2024, 08/21/2023, Additional history exists HPV Vaccines Aged Out [...] Procedure Name Priority Date/Time Associated Diagnosis Comments C-REACTIVE PROTEIN, HIGH SENSITIVITY, PLASMA Routine 06/27/2025 10:12 AM EDT Abdominal pain, unspecified abdominal location COMPREHENSIVE METABOLIC PANEL, PLASMA Routine 06/27/2025 10:12 AM EDT Abdominal pain, unspecified abdominal location CBC WITH AUTO DIFFERENTIAL Routine 06/27/2025 10:12 AM EDT Abdominal pain, unspecified abdominal location URINE CULTURE Routine 06/27/2025 10:12 AM EDT Abdominal pain, unspecified abdominal location POCT URINALYSIS DIPSTICK Routine 06/27/2025 9:51 AM EDT Abdominal pain, unspecified abdominal location MAMMOGRAPHY BREAST SCREENING TOMOSYNTHESIS BILATERAL Routine 05/15/2023 1:14 PM EDT Encounter for screening mammogram for malignant neoplasm of breast COLONOSCOPY EXTERNAL RESULT 01/27/2012 from Last 3 Months or Most Recently Relevant to Health Maintenance Results * CBC and Differential (06/27/2025 10:12 AM EDT) WBC Count 9.44 3.70 - 10.30 10*3/uL LAB HEMATOLOGY METHOD 06/27/2025 4:26 PM EDT [facility] RBC Count 4.45 3.90 - 5.20 10*6/uL LAB HEMATOLOGY METHOD 06/27/2025 4:26 PM EDT [facility] HGB 13.6 11.2 - 15.7 g/dL LAB HEMATOLOGY METHOD 06/27/2025 4:26 PM EDT [facility] HCT 41.5 34.0 - 45.0 % LAB HEMATOLOGY METHOD 06/27/2025 4:26 PM EDT [facility] Platelet Count 354 155 - 369 10*3/uL LAB HEMATOLOGY METHOD 06/27/2025 4:26 PM EDT [facility] MCV 93 79 - 98 fL LAB HEMATOLOGY METHOD 06/27/2025 4:26 PM EDT [facility] MCH 30.6 26.0 - 32.0 pg LAB HEMATOLOGY METHOD 06/27/2025 4:26 PM EDT [facility] MCHC 32.8 30.7 - 35.5 g/dL LAB HEMATOLOGY METHOD 06/27/2025 4:26 PM EDT [facility] RDW 13.4 11.5 - 14.5 % LAB HEMATOLOGY METHOD 06/27/2025 4:26 PM EDT [facility] MPV 10.0 8.8 - 12.5 fL LAB HEMATOLOGY METHOD 06/27/2025 4:26 PM EDT [facility] nRBC 0.0 <=0.0 per 100 WBCs LAB HEMATOLOGY METHOD 06/27/2025 4:26 PM EDT [facility] Differential Type Automated LAB HEMATOLOGY METHOD 06/27/2025 4:26 PM EDT [facility] Neutrophils % 62 % LAB HEMATOLOGY METHOD 06/27/2025 4:26 PM EDT [facility] Lymphocytes % 25 % LAB HEMATOLOGY METHOD 06/27/2025 4:26 PM EDT [facility] Monocytes % 9 % LAB HEMATOLOGY METHOD 06/27/2025 4:26 PM EDT [facility] Eosinophils % 2 % LAB HEMATOLOGY METHOD 06/27/2025 4:26 PM EDT [facility] Basophils % 1 % LAB HEMATOLOGY METHOD 06/27/2025 4:26 PM EDT [facility] Immature Granulocytes % 1 % LAB HEMATOLOGY METHOD 06/27/2025 4:26 PM EDT [facility] Neutrophils Absolute 5.94 1.60 - 6.10 10*3/uL LAB HEMATOLOGY METHOD 06/27/2025 4:26 PM EDT [facility] Lymphocytes Absolute 2.34 1.20 - 3.90 10*3/uL LAB HEMATOLOGY METHOD 06/27/2025 4:26 PM EDT [facility] Monocytes Absolute 0.83 0.30 - 0.90 10*3/uL LAB HEMATOLOGY METHOD 06/27/2025 4:26 PM EDT [facility] Eosinophils Absolute 0.21 0.00 - 0.50 10*3/uL LAB HEMATOLOGY METHOD 06/27/2025 4:26 PM EDT [facility] Basophils Absolute 0.07 0.00 - 0.10 10*3/uL LAB HEMATOLOGY METHOD 06/27/2025 4:26 PM EDT [facility] Immature Granulocytes Absolute 0.05 0.00 - 0.06 10*3/uL LAB HEMATOLOGY METHOD 06/27/2025 4:26 PM EDT [facility] Blood Venous blood specimen / Unknown Venipuncture / Unknown 06/27/2025 10:12 AM EDT 06/27/2025 10:12 AM EDT Narrative [facility] - 06/27/2025 4:26 PM EDT Therapeutic decision making should be based on absolute values, rather than percentages. Maci [employer] CAREER CENTER ADVISOR LAB BLOOD ORDERABLES Final Result Performing Organization Address City/[facility]/ZIP Co de Phone Number [facility] [address] [place] [address] * Urine Culture (06/27/2025 10:12 AM EDT) Culture 10,000 - 100,000 CFU/mL Mixed urogenital, fecal, or skin gerardo present. 06/28/2025 2:[address] [facility] Urine Urine specimen obtained by clean catch procedure / Unknown Non-blood Collection / Unknown 06/27/2025 10:12 AM EDT 06/27/2025 10:12 AM EDT Maci [employer] CAREER CENTER ADVISOR LAB MICROBIOLOGY - GENERAL ORDERABLES Final Result [facility] [address] [place] [address] * C-Reactive Protein, High Sensitivity, Plasma (06/27/2025 10:12 AM EDT) CRP, High Sensitivity, Plasma 0.59 <=3 mg/L 06/27/2025 5:46 PM EDT [facility] Blood Venous blood specimen / Unknown Venipuncture / Unknown 06/27/2025 10:12 AM EDT 06/27/2025 10:12 AM EDT Narrative [facility] - 06/27/2025 5:46 PM EDT [...] risk of future cardiovascular event. Maci Driscoll CAREER CENTER ADVISOR LAB BLOOD ORDERABLES Final Result [facility] [address] [place] [address] * (ABNORMAL) Comprehensive Metabolic Panel, Plasma (06/27/2025 10:12 AM EDT) Glucose, Plasma 102(H) 74 - 99 mg/dL 06/27/2025 5:11 PM EDT [facility] BUN, Plasma 14 8 - 23 mg/dL 06/27/2025 5:11 PM EDT [facility] Creatinine, Plasma 0.96 0.60 - 1.10 mg/dL 06/27/2025 5:11 PM EDT [facility] BUN/Creatinine Ratio 15 06/27/2025 5:11 PM EDT [facility] Sodium, Plasma 141 136 - 145 mmol/L 06/27/2025 5:11 PM EDT [facility] Potassium, Plasma 4.4 3.6 - 4.9 mmol/L 06/27/2025 5:11 PM EDT [facility] Chloride, Plasma 106 97 - 107 mmol/L 06/27/2025 5:11 PM EDT [facility] CO2, Plasma 22 22 - 29 mmol/L 06/27/2025 5:11 PM EDT [facility] Anion Gap 13 6 - 16 mmol/L 06/27/2025 5:11 PM EDT [facility] Total Calcium, Plasma 9.6 8.9 - 10.2 mg/dL 06/27/2025 5:11 PM EDT [facility] Total Protein 7.1 6.3 - 7.9 g/dL 06/27/2025 5:11 PM EDT [facility] Albumin, Plasma 4.3 3.5 - 5.2 g/dL 06/27/2025 5:11 PM EDT [facility] AST, Plasma 23 10 - 35 U/L 06/27/2025 5:11 PM EDT [facility] ALT, Plasma 16 10 - 35 U/L 06/27/2025 5:11 PM EDT [facility] Alkaline Phosphatase, Plasma 69 46 - 142 U/L 06/27/2025 5:11 PM EDT [facility] Total Bilirubin, Plasma 0.5 0.2 - 1.1 mg/dL 06/27/2025 5:11 PM EDT [facility] eGFRcr 61.8 mL/min/1.7 3m*2 06/27/2025 5:11 PM EDT [facility] Comment:Reported eGFRcr in m L/min/1.73m2 is based the CKD-EPI 2020 equation that does not use a race coefficient. Blood Venous blood specimen / Unknown Venipuncture / Unknown 06/27/2025 10:12 AM EDT 06/27/2025 10:12 AM EDT us Maci Driscoll CAREER CENTER ADVISOR LAB BLOOD ORDERABLES Final Result [facility] [address] [place] [address] * (ABNORMAL) POCT Urinalysis Dipstick (06/27/2025 9:51 AM EDT) POCT Urine Color Yellow POCT Urine Clarity Clear POCT Glucose Urine Negative Negative mg/dL POCT Bilirubin, Urine Negative Negative POCT Ketones, Urine Negative Negative mg/dL POCT Specific [place], Urine 1.010 POCT Blood, Urine Trace(A) Negative POCT pH, Urine 5.5 5.0 to 8.0 POCT Protein, Urine Negative Negative mg/dL POCT Urobilinogen, Urine 0.2 0.2, 1 E.U./dL POCT Nitrite, Urine Negative Negative POCT Leukocyte Esterase, Urine Negative Negative Test Strip Lot Number [id number] Test Strip Lot Expiration 06/08/2026 Urine Urine specimen obtained by clean catch procedure / Unknown 06/27/2025 9:51 AM EDT Maci Driscoll CAREER CENTER ADVISOR POINT OF CARE TEST ENTER/ED IT ORDERABLES Final Result * Mammography Breast Screening Tomosynthesis Bilateral (05/15/2023 [...] to: 08/21/2018 Mammography Outside Images Upload at [facility] 09/03/2019 Mammography Outside Images Upload at [facility] 09/06/2020 Mammography Outside Images Upload at [facility] 10/15/2021 Mammography Breast Screening Tomosynthesis Bilateral BREAST COMPOSITION: The breasts are heterogeneously dense, which may obscure small masses. FINDINGS: There are no suspicious masses, calcifications, or areas of architectural distortion. Shalini Clemons CAREER CENTER ADVISOR IMG BI PROCEDURES Final Res ult * COLONOSCOPY EXTERNAL RESULT (01/27/2012) Anatomical Region Laterality Modality Endoscopy Narrative 01/27/2012 Ordered by an unspecified provider. us External Provider GI PROCEDURE ORDERABLES Final Result from Last 3 Months or Most Recently Relevant to Health Maintenance Insurance [facility] MEDICARE Care Teams Continuous Yarn Dyeing Machine Operator Relationship Specialty Start Date End Date Maci Driscoll APRN [address] [place] [address] PCP - General 03/23/21
--- OUTSIDE RECORDS SUMMARY | 2025-07-26 12:09 | XMS_ITS | Clinical Summary ---
Author Organization [facility] y[facility] Address [address] [place] [address] Care Team Providers Care Board Setter Name Role Phone AmericoMaci PAUL Primary Care [...] of 2 - PPSV23) 08/08/2021 08/08/2020, 09/27/2016 RSV Vaccine - Adults (1 - 1- dose 75+ series) 2025 COVID-19 Vaccine (3 - 2024-2 6 season) 2025 09/12/2021, 02/14/2021 INFLUENZA VACCINE 08/10/2025 08/02/2020, , 08/18/2018, Additional history exists ANNUAL WELLNESS VISIT 09/28/2025 09/28/[address] [facility] MEDICARE ADVANTAGE Care Teams Board Setter Relationship Specialty Start Date End Date Maci Driscoll APRN [address] [place] [address] PCP - General Family Medicine 02/12/22
--- OUTSIDE RECORDS SUMMARY | 2025-07-26 12:09 | XMS_ITS | Encounter Summary ---
Author Organization Healthcare Address [address] [place] [address] Care Team Providers Care Glaze Grinder Name Role Phone Maci Driscoll APRN Primary Care Provider [phone] Encounter Details Date Type Department Care Team (Latest Contact Info) Description 06/27/2025 Travel Social History Tobacco Use Types Packs/Day [...] How often do you attend chur or muslim services? Never 09/22/2024 Do you belong to any clubs o r organizations such as confucianism groups, unions, fraternal or athletic groups, or [...] Recorded Patient Health Questionnaire-2 Score 0 06/27/2025 [facility] - Occupational Stress [...] any time in the past 12 m [facility], were you homeless or living in a skilled nursing (including now)? No 09/22/2024 AUDIT-C Answer Date [...] In the past 12 months has th [employer], gas, oil, or water company threatened to [...] of Assessment Author 0 06/27/2025 9:29 AM Renée Cohen * Question Answer Date of Assessment Author Q1: How often do you have a drink containing alcohol? Never 06/27/2025 9:29 AM Renée Cohen Q2: How many drinks containing alcohol do you have on a typical day when you are drinking? Patient does not drink 06/27/2025 9:29 AM Renée Cohen Q3: How often do you have six or more drinks on one occasion? Never 06/27/2025 9:29 AM Renée Cohen * Over the past [...] Not at all 06/27/2025 9: 32 AM Renée Cohen Feeling bad about yourself - or that you are a failure or have let yourself or your family down Not at all 06/27/2025 9:32 AM Renée Cohen Trouble concentrating on thi ngs, such as reading the newspaper or watching television Not at all 06/27/2025 9:32 AM Renée Cohen Moving or speaking so slowly that other people could have noticed? Or the opposite - being so fidgety or restless that you have been moving around a lot more than usual. Not at all 06/27/2025 9:32 AM Renée Cohen Thoughts that you would be b shirley off or hurting yourself in some way Not at all 06/27/2025 9:32 AM Renée Cohen Patient Health Questionnaire -9 Score 0 06/27/2025 9:32 AM Renée Cohen * Calculated C-SSRS Risk Score (Lifetime/Recent) Answer Date of Assessment Author No Risk Indicated 06/27/2025 10:01 AM Renée Ignacio * If you checked off any problems on this questionnaire so far, Question Answer Date of Assessment Author How difficult have these problems made it for you to do your work, take care of things at home, or get along with other people? Not difficult at all 06/27/2025 9:32 AM Renée Cohen * Question Answer Date of Assessment Author 1. Wish to be (Past 1 Month) No 025 10:01 AM Renée Cohen 2. Non-Specific Active Suici finn Thoughts (Past 1 Month) No 06/27/2025 10:01 AM Ugo Cohen 6. Suicidal Behavior (Lifetime) No 10:01 AM Renée Cohen documented as of this [...] documented as of this encounter Care Teams Glaze Grinder Relationship Specialty Start Date End Date Maci Driscoll, PAUL [address] [place] [address] PCP - General 03/23/21 documented as of this encounter
--- OUTSIDE RECORDS SUMMARY | 2025-07-26 12:09 | XMS_ITS | Encounter Summary ---
Author Organization Healthcare Address [address] [place] [address] Care Team Providers Care Pulverizer Mill Operator Name Role Phone Maci Driscoll APRN Primary Care Provider [phone] Encounter Details Date Type Department Care Team (Late st Contact Info) Description 06/28/2025 Results Follow-Up [facility] [address] [place] [address] Maci Driscoll APRN [address] [place] [address] Social History Tobacco Use Types [...] often do you attend chur ch or nondenominational services? Never 09/22/2024 Do you belong to any clubs o r organizations such as methodist groups, unions, fraternal or athletic groups, or [...] Recorded Patient Health Questionnaire-2 Score 0 06/27/2025 [facility] - Occupational Stress Questionnaire Answer Date Recorded [...] any time in the past 12 m [facility], were you homeless [...] Recorded In the past 12 months has e [employer], oil, or water [employer] threatened to shut off services in your [...] documented as of this encounter Care Teams Pulverizer Mill Operator Relationship Specialty Start Date End Date Maci Driscoll APRN [address] [place] [address] PCP - General 03/23/21 documented as of this encounter
--- OUTSIDE RECORDS SUMMARY | 2025-07-26 12:09 | XMS_ITS | Encounter Summary ---
Author Organization [facility] Address [address] [place] [address] Care Team Providers Care Route Salesman And Driver Name Role Phone Maci Driscoll APRN Primary Care Provider [phone] Siria Soriano LPN Unavailable Unavailab le Reason for Visit * Reason Comments Med Refill Encounter Details Date Type Department Care Team (Late st Contact Info) Description 02/11/2023 [facility] [address] [place] [address] Maci Driscoll APRN [address] [place] [address] Social History Tobacco Use Types [...] documented as of this encounter Care Teams Route Salesman And Driver Relationship Specialty Start Date End Date Maci Driscoll APRN [address] [place] [address] PCP - General 03/23/21 Siria Soriano LPN VALUE-BASED TRANSFORMATION PROGRAM Licensed Practical Nurse 09/22/24 03/21/25 documented as of this encounter
--- OUTSIDE RECORDS SUMMARY | 2025-07-26 12:09 | XMS_ITS | Encounter Summary ---
Author Organization Healthcare Address [address] [place] [address] Care Team Providers Care Experiential Therapist Name Role Phone Julio Pires CHIEF PROGRAM OFFICER Primary Care Provider [phone] Siria Soriano LPN Unavailable Unavailab le Encounter Details Date Type Department Care Team (Late st Contact Info) Description 06/20/2022 Outside Procedure External Location [address] [place] [address] Julio Pires, CHIEF PROGRAM OFFICER [address] [place] [address] Social History Tobacco Use Types [...] AM EDT Narrative 06/20/2022 9:00 [place] [address] Name: CARLOS MI Exam Date: 06/20/2022 : 1950 Age 72 Gender: F Physician: JULIO PIRES Facility: [facility] Facility HSV: Outpatient Exam: HIP 2 [...] to [facility]. Legally authenticated by ANEL YE 2022-06-20 08:48:15 Procedure Note Provider, [facility] 06/20/2022 [place] [address] Name: CARLOS MI Exam Date: 06/20/2022 : 1950 Age 72 Gender: F Physician: JULIO PIRES Facility: [facility] Facility HSV: Outpatient Exam: HIP 2 [...] Thank you for referring CARLOS MI to [facility]. Legally authenticated by ANEL YE 2022-06-20 08:48:15 us Julio Pires APRN IMG XR PROCEDURES Final Res ult documented in this encounter Visit Diagnoses Not on filedocumented in this encounter Additional Health Concerns Assessment Noted Time A fall risk assessment has been complete d for the patient 06/20/2022 7:38 AM EDT documented as of this encounter Care Teams Experiential Therapist Relationship Specialty Start Date End Date Julio Pires APRN [address] [place] [address] PCP - General 03/23/21 Siria Soriano LPN VALUE-BASED TRANSFORMATION PROGRAM Licensed Practical Nurse 09/22/24 03/21/25 documented as of this encounter
--- NOTE | 2025-07-26 12:15 | XR_ITS ---
FINAL REPORT CLINICAL HISTORY: Chronic low back pain with leg pain COMPARISON: None FINDINGS: 3 views of the lumbosacral spine were obtained. No fracture is identified. Moderate diffuse degenerative disc disease. There is mild levoscoliosis. IMPRESSION: Degenerative changes without acute bony abnormality. Reviewed, Interpreted and Dictated by Haven Hernandez MD Transcribed by Renée Lynn Authenticated and [facility]
--- NOTE | 2025-07-26 12:15 | XR_ITS ---
FINAL REPORT CLINICAL HISTORY: Chronic right hip pain COMPARISON: None FINDINGS: RIGHT HIP Two views of the right hip with an AP view of the pelvis demonstrate no acute fracture or dislocation. Mild degenerative changes. The visualized bony structures are well aligned. No soft tissue abnormality is seen. IMPRESSION: Mild degenerative changes without acute bony abnormality. Reviewed, Interpreted and Dictated by Haven Hernandez MD Transcribed by Renée Lynn Authenticated and [facility]
== END 2025-07-26 23:59 | disposition home or self-care (01) ==
LOC: RAD 12:05
PROVIDERS: PCP Nurse Practitioner Family; Visit Provider Nurse Practitioner Family
DX: M47.26 Other spondylosis with radiculopathy, lumbar region (principal); M16.11 Unilateral primary osteoarthritis, right hip; M51.16 Intervertebral disc disorders with radiculopathy, lumbar region
CPT/HCPCS: 72100; 73502

== ENCOUNTER 2025-08-22 12:42 | Outpatient (CLI) | payer MEDICARE, SELFPAY ==
--- OUTSIDE RECORDS SUMMARY | 2022-02-12 09:01 | XMS_ITS | Encounter Summary ---
[facility] [address] [place] [address] Care Team Providers Care Supervisor Tank Storage Name Role Phone Maci Driscoll APRN Primary Care Provider Reason for Referral * Diagnostic Imaging (Routine) - Closed Specialty Diagnoses / Procedures Referred By Contac t Referred To Contact Obstetrics and Gynecology Diagnoses Postmenopausal status (age-related) (natural) Procedures DEXA Bone Density Axial Maci Driscoll, INTERACTIVE MEDIA MARKETING DIRECTOR [address] [place] [address] Phone: tel: fax: [facility] OBGYN [address] [place] [address] Phone: tel: fax: Referral ID Status Reason Start Date Expiration Date Visits Re quested Visits Authorized [id number] Closed 02/07/2022 02/07/2023 1 1 Reason for Visit * Diagnostic Imaging (Routine) - Closed Specialty Diagnoses / Procedures Referred By Contac t Referred To Contact Obstetrics and Gynecology Diagnoses Postmenopausal status (age-related) (natural) Procedures DEXA Bone Density Axial Maci Driscoll, INTERACTIVE MEDIA MARKETING DIRECTOR [address] [place] [address] Phone: tel: fax: [facility] O[facility]YN [address] [place] [address] Phone: tel: fax: Referral ID Status Reason Start Date Expiration Date Visits Re quested Visits Authorized [id number] Closed 02/07/2022 02/07/2023 1 1 Encounter Details Date Type Department Care Team (Latest Contact Info) Description 02/12/2022 9:01 AM EDT Hospital Encounter [facility] [address] [place] [phone] Postmenopausal [...] (natural) documented in this encounter Care Teams Supervisor Tank Storage Relationship Specialty Start Date End Date Maci Driscoll APRN [address] [place] [address] PCP - General Family Medicine 02/12/22 documented as of this encounter
--- OUTSIDE RECORDS SUMMARY | 2025-06-27 09:00 | XMS_ITS | Encounter Summary ---
Author Organization [facility] Address [address] [place] [address] Care Team Providers Care Senior Application Software Engineer Name Role Phone Maci Driscoll APRN Primary Care Provider [phone] Reason for Referral * Consultation (Routine) - Authorized Specialty Diagnoses / Procedures Referred By Bran britt Referred To Contact Gastroenterology Diagnoses Constipation, unspecified constipation type Maci Driscoll APRN [address] [place] [address] Phone: tel: fax: Referral ID Status Reason Start Date Expiration Date Visits Requested Visits Authorized [id number] Authorized Specialty Services Required 06/27/2025 12/27/2026 1 1 Scheduling Instructions [facility] Reason for Visit * Reason Comments Constipation Abdominal Pain nausea Encounter Details Date Type Department Care Team (Late Contact Info) Description 06/27/2025 9:00 AM EDT Office Visit [facility] [address] [place] [address] Maci Driscoll APRN [address] [place] [address] Abdominal pain, unspecified abdominal location (Primary Dx); Constipation, unspecified constipation type Social History Tobacco Use Types Packs/Day Years [...] week 09/22/2024 How often do you attend [facility] or jehovah's witness services? Never 09/22/2024 Do you belong to any clubs o r organizations such as anglican groups, unions, fraternal or athletic groups, or [...] Date Recorded Patient Health Questionnaire-2 Score 0 06/27/2025 [facility] - Occupational Stress Questionnaire Answer [...] Date Recorded Patient Health Questionnaire-9 Score 0 06/27/2025 Housing Stability Vital Sign Answer Donnie e Recorded In the last 12 months, was t here a time when you were not able to pay the mortgage or rent on time? No 09/22/2024 In the past 12 months, how m any times have you moved where you were living? 1 09/22/2024 At any time in the past 12 m [facility], were you homeless or living in a fci (including now)? No 09/22/2024 AUDIT-C Answer Date Recorded Q1: How often do you have a drink containing alcohol? Never 06/27/2025 Q2: How many drinks containi ng alcohol do you have on a typical day when you are drinking? Patient does not drink Q3: How often do you have si x or more drinks on one occasion? Never 06/27/2025 Utilities Answer Date Recorded In the past 12 months has th e [employer], gas, oil, or water company threatened to shut off services in your home? No 09/22/2024 PHQ-2A Answer Date Recorded Patient Health Questionnaire-2 Score 2 08/21/2023 Comments No Sex and Gender Information Value Date Recorded Sex Assigned at Not on file Legal Sex Female 6:25 PM EDT Gender Identity Not on file Sexual Orientation Not on file documented as of this encounter Last Filed Vital Signs Vital Sign Reading Time Taken Comments Blood Pressure 146/84 06/27/2025 9:36 AM EDT Pulse 70 06/27/2025 9:27 AM EDT Temperature 36.6 C (97.8 F) 06/27/2025 9:27 AM EDT Respiratory Rate - - Oxygen Saturation 95% 06/27/2025 9:27 AM EDT Inhaled Oxygen Concentration - - Weight 76.9 kg (169 lb 9.6 oz) 06/27/2025 9:27 A M EDT Height 170.2 cm (5' 7 ) 06/27/2025 9:27 AM EDT Body Mass Index 26.56 06/27/2025 9:27 AM EDT documented in this encounter Functional Status * AUDIT-C Score Answer Date of Assessment Author 0 06/27/2025 9:29 AM JOSE ARMANDOT Renée Grace * Question Answer Date of Assessment Author Q1: How often do you have a drink containing alcohol? Never 06/27/2025 9:29 AM JOSE ARMANDOT Renée Grace Q2: How many drinks containing alcohol do you have on a typical day when you are drinking? Patient does not drink 06/27/2025 9:29 AM EDT Renée Grace Q3: How often do you have six or more drinks on one occasion? Never 06/27/2025 9:29 AM JOSE ARMANDOT Renée Grace * Over the past 2 weeks, how often have you been bothered by any of the following problems? Question Answer Date of Assessment Author Little interest or pleasure in doing things Not at all 06/27/2025 9:32 AM Renée Cohen Feeling down, depressed, or hopeless Not at all 06/27/2025 9:32 AM Renée Cohen Patient Health Questionnaire -2 Score 0 06/27/2025 9:32 AM Renée Cohen * Question Answer Date of Assessment Author Trouble falling or staying a sleep, or sleeping too much Not at all 06/27/2025 9:32 AM Renée Cohen Feeling tired or having carmela le energy Not at all 06/27/2025 9:32 AM Renée Cohen Poor appetite or overeating Not at all 06/27/2025 9: 32 AM EDT Renée Grace Feeling bad about yourself - or that you are a failure or have let yourself or your family down Not at all 06/27/2025 9:32 AM EDT Renée Grace Trouble concentrating on thi ngs, such as reading the newspaper or watching television Not at all 06/27/2025 9:32 AM JOSE ARMANDOT Renée Grace Moving or speaking so slowly that other people could have noticed? Or the opposite - being so fidgety or restless that you have been moving around a lot more than usual. Not at all 06/27/2025 9:32 AM EDT Renée Butler Thoughts that you would be b shirley off or hurting yourself in some way Not at all 06/27/2025 9:32 AM JOSE ARMANDOT Renée Grace Patient Health Questionnaire -9 Score 0 06/27/2025 9:32 AM EDT Renée Grace * Calculated C-SSRS Risk Score (Lifetime/Recent) Answer Date of Assessment Author No Risk Indicated 06/27/2025 10:01 AM EDT Renée Nam * How difficult have these problems made it for you to do your work, take care of things at home, or get along with other people? Answer Date of Assessment Author Not difficult at all 06/27/2025 9:32 AM EDT Renée Tran * Question Answer Date of Assessment Author 1. Wish to be (Past 1 Month) No 025 10:01 AM JOSE ARMANDOT Renée Grace 2. Non-Specific Active Suici finn Thoughts (Past 1 Month) No 06/27/2025 10:01 AM EDT Ugo Grace 6. Suicidal Behavior (Lifetime) No 10:01 AM JOSE ARMANDOT Renée Grace documented as of this encounter Miscellaneous Notes * Clinician Note - Renée Grace - 06/27/2025 9:00 AM EDT Fall risk protocol in place, pt in chair with arms * Progress Notes - Maci Driscoll, DATABASE ADMINISTRATION PROJECT MANAGER - 06/27/2025 9:00 AM EDT Subjective Alexa Mi Pt is here after having been in the er x 2 for abdominal pain they found a UTI and put her on antibiotics but she developed constipation and is concerned now that she has a bowel infection Has had divertiuclitis in past the CT did not show that but she is concerned Discussed will recheck ua which was clean today and labs but the constipation may be just due to meds She has low abd pain and cramping no fever slight nausea Past Medical History[1] Surgical History[2] Family History[3] Social History Socioeconomic History Marital status: Spouse name: Not on file Number of children: Not on file Years of education: Not on file Highest education level: Not on file Occupational History Not on file Tobacco Use Smoking status: Never Passive exposure: Past Smokeless tobacco: Never Vaping Use Vaping status: Never Used Substance and Sexual Activity Alcohol use: Not Currently Drug use: Never Sexual activity: Not on file Other Topics Concern Not on file Social History Narrative Not on file Social Drivers of Health Financial Resource Strain: Not on file Food Insecurity: No Food Insecurity (09/22/2024) Hunger Vital Sign Worried About Running Out of Food in the Last Year: Never true Ran Out of Food in the Last Year: Never true Transportation Needs: No Transportation Needs (09/22/2024) PRAPARE - Transportation Lack of Transportation (Medical): No Lack of Transportation (Non-Medical): No Physical Activity: Inactive (09/22/2024) Exercise Vital Sign Days of Exercise per Week: 0 days Minutes of Exercise per Session: 0 min Stress: No Stress Concern Present (09/22/2024) [facility] - Occupational Stress Questionnaire Feeling of Stress : Not at all Social Connections: Socially Isolated (09/22/2024) Social Connection and Isolation Panel Frequency of Communication with Friends and Family: More than three times a week Frequency of Social Gatherings with Friends and Family: More than three times a week Attends Cheondoism Services: Never Active Member of Clubs or Organizations: No Attends Club or Organization Meetings: Never Marital Status: Intimate Partner Violence: Not At Risk (09/22/2024) Humiliation, Afraid, Rape, and Kick questionnaire Fear of Current or Ex-Partner: No Emotionally Abused: No Physically Abused: No Sexually Abused: No Housing Stability: Low Risk (09/22/2024) Housing Stability Vital Sign Unable to Pay for Housing in the Last Year: No Number of Times Moved in the Last Year: 1 Homeless in the Last Year: No Medications Ordered Prior to Encounter[4] Health Maintenance Due Topic Date Due [facility]-Hepatitis C Screening Never done [facility]-Bone Density Scan Never done [facility]-DTaP,Tdap,and Td Vaccines (1 - Tdap) Never done [facility]-Pneumococcal Vaccine: 50+ Years (2 of 2 - PPSV23) 10/03/2020 [id number]-89 Vaccine (6 - season) 2025 [facility]- SDOH Screenings 03/22/2025 [facility]-RSV Vaccine: 60+ Years or (1 - 1-dose 75+ series) Never done [facility]-Zoster Vaccines (1 of 2) 04/25/2025 [facility]-Influenza Vaccine (1) 07/11/2025 Review of Systems Constitutional: Negative. Respiratory: Negative. Cardiovascular: Negative. Gastrointestinal: Positive for abdominal pain and constipation. Genitourinary: Negative. Musculoskeletal: Negative. Neurological: Negative. Psychiatric/Behavioral: Negative. Objective Vitals: 06/27/25 0936 BP: (!) 146/84 Pulse: Temp: SpO2: Physical Exam Vitals and nursing note reviewed. Constitutional: Appearance: She is normal weight. Cardiovascular: Rate and Rhythm: Normal rate and regular rhythm. Pulses: Normal pulses. Heart sounds: Normal heart sounds. Pulmonary: Effort: Pulmonary effort is normal. Breath sounds: Normal breath sounds. Abdominal: Palpations: Abdomen is soft. Neurological: General: No focal deficit present. Mental Status: She is alert and oriented to person, place, and time. Psychiatric: Mood and Affect: Mood normal. Behavior: Behavior normal. Thought Content: Thought content normal. Judgment: Judgment normal. Assessment/Plan Diagnoses and all orders for this visit: Abdominal pain, unspecified abdominal location - POCT Urinalysis Dipstick - CBC and Differential - Comprehensive Metabolic Panel, Plasma - C-Reactive Protein, High Sensitivity, Plasma - Urine Culture; Future Will check labs but think constipation may just be to meds she was put on Constipation, unspecified constipation type - Ambulatory referral to Gastroenterology [1] Past Medical History: Diagnosis Date Cancer of kidney (CMS/HCC) [2] Past Surgical History: Procedure Laterality Date DILATION AND CURETTAGE OF UTERUS N/A Dilation And Curettage from [facility] FOOT SURGERY N/A Foot Surgery from [facility] TUBAL LIGATION N/A Tubal Ligation from [facility] [3] Family History Problem Relation Name Age of Onset Stroke Father Heart attack Mother [4] Current Outpatient Medications on File Prior to Visit Medication Sig Dispense Refill baclofen (Lioresal) 10 MG tablet Take 1 tablet (10 mg) by mouth 3 (three) times a day. carvedilol (Coreg) 12.5 MG tablet Take 1 tablet (12.5 mg) by mouth 2 (two) times a day with meals. felodipine ER (Plendil) 10 MG 24 hr tablet Take 1 tablet (10 mg) by mouth 1 (one) time each day. 90tablet 3 ibandronate (Boniva) 150 MG tablet Take 1 tablet by mouth once every 4 weeks. Take in morning with full glass of water on an empty stomach. No food, drink, meds, or lying down for 60 minutes after. 3tablet 3 loratadine (Claritin) 10 MG tablet Take 1 tablet (10 mg) by mouth 1 (one) time each day. losartan (Cozaar) 100 MG tablet Take 1 tablet (100 mg) by mouth 1 (one) time each day. ondansetron ODT (Zofran-ODT) 4 MG disintegrating tablet Dissolve 1 tablet on the tongue daily. potassium chloride CR (Klor-Con) 10 MEQ ER tablet Take 1 tablet (10 mEq) by mouth 1 (one) time eachday. Do not crush, chew, or split. 90 tablet 3 simvastatin (Zocor) 40 MG tablet Take 1 tablet (40 mg) by mouth 1 (one) time each day. 90 tablet 2 Turmeric 500 MG tablet Take 500 mg by mouth 1 (one) time each day. carvedilol (Coreg) 6.25 MG tablet Take 1 tablet (6.25 mg) by mouth 2 (two) times a day with meals. (Patient not taking: Reported on 06/27/2025) 180 tablet 3 No current facility-administered medications on file prior to visit. documented in this encounter Plan of Treatment Scheduled Referrals Name Type Priority Associated Diagnoses Order Schedule Ambulatory referral to Gastroenterology Outpatient Referral Routine Constipation, unspecified constipation type Ordered: 06/27/2025 documented as of this encounter Procedures Procedure Name Priority Date/Time Associated Diagnosis Comments CBC WITH AUTO DIFFERENTIAL Routine 06/27/2025 10:12 AM EDT Abdominal pain, unspecified abdominal location URINE CULTURE Routine 06/27/2025 10:12 AM EDT Abdominal pain, unspecified abdominal location C-REACTIVE PROTEIN, HIGH SENSITIVITY, PLASMA Routine 06/27/2025 10:12 AM EDT Abdominal pain, unspecified abdominal location COMPREHENSIVE METABOLIC PANEL, PLASMA Routine 06/27/2025 10:12 AM EDT Abdominal pain, unspecified abdominal location POCT URINALYSIS DIPSTICK Routine 06/27/2025 9:51 AM EDT Abdominal pain, unspecified abdominal location documented in this encounter Results * Urine Culture (06/27/2025 10:12 AM EDT) Culture 10,000 - 100,000 CFU/mL Mixed urogenital, fecal, or skin gerardo present. 06/28/2025 2:52 PM EDT [facility] Urine Urine specimen obtained by clean catch procedure / Unknown Non-blood Collection / Unknown 06/27/2025 10:12 AM EDT 06/27/2025 10:12 AM EDT Maci Driscoll APRN LAB MICROBIOLOGY - GENERAL ORDERABLES Final Result [facility] [address] [place] [address] * C-Reactive Protein, High Sensitivity, Plasma (06/27/2025 10:12 AM EDT) CRP, High Sensitivity, Plasma 0.59 <=3 mg/L 06/27/2025 5:46 PM EDT [facility] Blood Venous blood specimen / Unknown Venipuncture / Unknown 06/27/2025 10:12 AM EDT 06/27/2025 10:12 AM EDT Narrative [facility] - 06/27/2025 5:46 PM EDT hs-CRP concentrations and associated risk of cardiovascular disease: < 1.0 mg/L low risk of cardiovascular disease 1.0 - 3.0 mg/L average risk of cardiovascular disease 3.1 - 9.9 mg/L high risk of cardiovascular disease > 9.9 mg/L very high risk of cardiovascular disease Patients with increased hs-CRP concentrations are at higher risk for stroke, myocardial infarction, and severe peripheral vascular disease. CRP is a non-specific marker of inflammation. It may be elevated in conditions other than atherosclerosis. If the initial result is greater than 3.0 mg/L, repeat the test at least 2 weeks later in metabolically stable patients who are free of infection or acute illness. The lower of the two results should be used to assess risk of future cardiovascular event. Maci Driscoll APRN LAB BLOOD ORDERABLES Final Result [facility] [address] [place] [address] * (ABNORMAL) Comprehensive Metabolic Panel, Plasma (06/27/2025 10:12 AM EDT) Glucose, Plasma 102(H) 74 - 99 mg/dL 06/27/2025 5:11 PM EDT [facility] BUN, Plasma 14 8 - 23 mg/dL 06/27/2025 5:11 PM EDT [facility] Creatinine, Plasma 0.96 0.60 - 1.10 mg/dL 06/27/2025 5:11 PM EDT [facility] BUN/Creatinine Ratio 15 06/27/2025 5:11 PM EDT [facility] Sodium, Plasma 141 136 - 145 mmol/L 06/27/2025 5:11 PM EDT [facility] Potassium, Plasma 4.4 3.6 - 4.9 mmol/L 06/27/2025 5:11 PM EDT [facility] Chloride, Plasma 106 97 - 107 mmol/L 06/27/2025 5:11 PM EDT [facility] CO2, Plasma 22 22 - 29 mmol/L 06/27/2025 5:11 PM EDT [facility] Anion Gap 13 6 - 16 mmol/L 06/27/2025 5:11 PM EDT [facility] Total Calcium, Plasma 9.6 8.9 - 10.2 mg/dL 06/27/2025 5:11 PM EDT [facility] Total Protein 7.1 6.3 - 7.9 g/dL 06/27/2025 5:11 PM EDT [facility] Albumin, Plasma 4.3 3.5 - 5.2 g/dL 06/27/2025 5:11 PM EDT [facility] AST, Plasma 23 10 - 35 U/L 06/27/2025 5:11 PM EDT [facility] ALT, Plasma 16 10 - 35 U/L 06/27/2025 5:11 PM EDT [facility] Alkaline Phosphatase, Plasma 69 46 - 142 U/L 06/27/2025 5:11 PM EDT [facility] Total Bilirubin, Plasma 0.5 0.2 - 1.1 mg/dL 06/27/2025 5:11 PM EDT [facility] eGFRcr 61.8 mL/min/1.7 3m*2 06/27/2025 5:11 PM EDT [facility] Comment:Reported eGFRcr in m L/min/1.73m2 is based the CKD-EPI 2020 equation that does not use a race coefficient. Blood Venous blood specimen / Unknown Venipuncture / Unknown 06/27/2025 10:12 AM EDT 06/27/2025 10:12 AM EDT us Maci Driscoll APRN LAB BLOOD ORDERABLES Final Result [facility] [address] [place] [address] * CBC and Differential (06/27/2025 10:12 AM EDT) WBC Count 9.44 3.70 - 10.30 10*3/uL LAB HEMATOLOGY METHOD 06/27/2025 4:26 PM EDT [facility] RBC Count 4.45 3.90 - 5.20 10*6/uL LAB HEMATOLOGY METHOD 06/27/2025 4:26 PM EDT [facility] HGB 13.6 11.2 - 15.7 g/dL LAB HEMATOLOGY METHOD 06/27/2025 4:26 PM EDT [facility] HCT 41.5 34.0 - 45.0 % LAB HEMATOLOGY METHOD 06/27/2025 4:26 PM EDT [facility] Platelet Count 354 155 - 369 10*3/uL LAB HEMATOLOGY METHOD 06/27/2025 4:26 PM EDT [facility] MCV 93 79 - 98 fL LAB HEMATOLOGY METHOD 06/27/2025 4:26 PM EDT [facility] MCH 30.6 26.0 - 32.0 pg LAB HEMATOLOGY METHOD 06/27/2025 4:26 PM EDT [facility] MCHC 32.8 30.7 - 35.5 g/dL LAB HEMATOLOGY METHOD 06/27/2025 4:26 PM EDT [facility] RDW 13.4 11.5 - 14.5 % LAB HEMATOLOGY METHOD 06/27/2025 4:26 PM EDT [facility] MPV 10.0 8.8 - 12.5 fL LAB HEMATOLOGY METHOD 06/27/2025 4:26 PM EDT [facility] nRBC 0.0 <=0.0 per 100 WBCs LAB HEMATOLOGY METHOD 06/27/2025 4:26 PM EDT [facility] Differential Type Automated LAB HEMATOLOGY METHOD 06/27/2025 4:26 PM EDT [facility] Neutrophils % 62 % LAB HEMATOLOGY METHOD 06/27/2025 4:26 PM EDT [facility] Lymphocytes % 25 % LAB HEMATOLOGY METHOD 06/27/2025 4:26 PM EDT [facility] Monocytes % 9 % LAB HEMATOLOGY METHOD 06/27/2025 4:26 PM EDT [facility] Eosinophils % 2 % LAB HEMATOLOGY METHOD 06/27/2025 4:26 PM EDT [facility] Basophils % 1 % LAB HEMATOLOGY METHOD 06/27/2025 4:26 PM EDT [facility] Immature Granulocytes % 1 % LAB HEMATOLOGY METHOD 06/27/2025 4:26 PM EDT [facility] Neutrophils Absolute 5.94 1.60 - 6.10 10*3/uL LAB HEMATOLOGY METHOD 06/27/2025 4:26 PM EDT [facility] Lymphocytes Absolute 2.34 1.20 - 3.90 10*3/uL LAB HEMATOLOGY METHOD 06/27/2025 4:26 PM EDT [facility] Monocytes Absolute 0.83 0.30 - 0.90 10*3/uL LAB HEMATOLOGY METHOD 06/27/2025 4:26 PM EDT [facility] Eosinophils Absolute 0.21 0.00 - 0.50 10*3/uL LAB HEMATOLOGY METHOD 06/27/2025 4:26 PM EDT [facility] Basophils Absolute 0.07 0.00 - 0.10 10*3/uL LAB HEMATOLOGY METHOD 06/27/2025 4:26 PM EDT [facility] Immature Granulocytes Absolute 0.05 0.00 - 0.06 10*3/uL LAB HEMATOLOGY METHOD 06/27/2025 4:26 PM EDT [facility] Blood Venous blood specimen / Unknown Venipuncture / Unknown 06/27/2025 10:12 AM EDT 06/27/2025 10:12 AM EDT Narrative [facility] - 06/27/2025 4:26 PM EDT Therapeutic decision making should be based on absolute values, rather than percentages. Maci Driscoll APRN LAB BLOOD ORDERABLES Final Result Performing Organization Address City/State/[facility] Co de Phone Number [facility] [address] [place] [address] * (ABNORMAL) POCT Urinalysis Dipstick (06/27/2025 9:51 AM EDT) POCT Urine Color Yellow POCT Urine Clarity Clear POCT Glucose Urine Negative Negative mg/dL POCT Bilirubin, Urine Negative Negative POCT Ketones, Urine Negative Negative mg/dL POCT Specific [place], Urine 1.010 POCT Blood, Urine Trace(A) Negative POCT pH, Urine 5.5 5.0 to 8.0 POCT Protein, Urine Negative Negative mg/dL POCT Urobilinogen, Urine 0.2 0.2, 1 E.U./dL POCT Nitrite, Urine Negative Negative POCT Leukocyte Esterase, Urine Negative Negative Test Strip Lot Number [id number] Test Strip Lot Expiration 06/08/2026 Urine Urine specimen obtained by clean catch procedure / Unknown 06/27/2025 9:51 AM EDT Maci Driscoll APRN POINT OF CARE TEST ENTER/ED IT ORDERABLES Final Result documented in this encounter Visit Diagnoses Diagnosis Abdominal pain, unspecified abdominal location- Primary Constipation, unspecified constipation type documented in this encounter Additional Health Concerns Assessment Noted Time PHQ-9 Depression Total Score: 0 06/27/20 25 9:32 AM EDT A fall risk assessment has been complete d for the patient 06/27/2025 10:01 AM EDT A Body Mass Index follow-up plan has been documented for the patient 06/27/2025 10:26 AM EDT documented as of this encounter Care Teams Senior Application Software Engineer Relationship Specialty Start Date End Date Maci Driscoll, PAUL [facility] [place] [address] [place] [address] PCP - General 03/23/21 documented as of this encounter
--- OUTSIDE RECORDS SUMMARY | 2025-07-06 09:40 | XMS_ITS | Encounter Summary ---
Author Organization Healthcare Address [address] [place] [address] Care Team Providers Care Manager Medical Device Name Role Phone Maci Driscoll APRN Primary Care Provider [phone] Reason for Visit * Reason Comments Back Pain Low back pain on rig ht side. Encounter Details Date Type Department Care Team (Late st Contact Info) Description 07/06/2025 9:40 AM EDT Office Visit [facility] [address] [place] [address] Maci Driscoll APRN [address] [place] [address] Chronic right hip pain (Primary [...] often do you attend chur ch or rastafarian services? Never 09/22/2024 Do you belong to any clubs o r organizations such as islam groups, unions, fraternal or athletic groups, or [...] Recorded Patient Health Questionnaire-2 Score 0 07/06/2025 [facility] - Occupational Stress Questionnaire [...] any time in the past 12 m [facility], were you homeless or living in a skilled nursing (including now)? No 07/06/2025 Utilities Answer Date [...] 07/06/2025 9:46 AM EDT Renée Butler * How difficult have these problems made it for you to do your work, take care of things at home, or get along with other people? Answer Date of Assessment Author Not difficult at all 07/06/2025 9:44 AM EDT Renée Tran * Question Answer [...] with arms * Progress Notes - Maci Driscoll APRN - 07/06/2025 9:40 AM EDT [...] min Stress: No Stress Concern Present (09/22/2024) [facility] [place] [facility] - Occupational Stress Questionnaire Feeling of Stress : Not at all Social Connections: Socially Isolated (09/22/2024) Social Connection and Isolation Panel Frequency of Communication with Friends and Family: More than three times a week Frequency of Social Gatherings with Friends and Family: More than three times a week Attends Mosque Services: Never Active Member of Clubs or [...] Years (2 of 2 - PPSV23) 10/03/2020 [id number] Vaccine ( season) 2025 UKY-RSV Vaccine: 60+ [...] OF UTERUS N/A Dilation And Curettage from [employer] FOOT SURGERY N/A Foot Surgery from [employer] TUBAL LIGATION N/A Tubal Ligation from [employer] [3] Family History Problem Relation Name Age [...] documented as of this encounter Care Teams Manager Medical Device Relationship Specialty Start Date End Date Maci Driscoll APRN [facility] [address] [place] [address] PCP - General 03/23/21 documented as of this encounter
--- OUTSIDE RECORDS SUMMARY | 2025-08-22 12:51 | XMS_ITS | Encounter Summary ---
Author Organization Healthcare Address [address] [place] [address] Care Team Providers Care Quenching Machine Operator Name Role Phone Julio Pires LUSTER APPLICATOR Primary Care Provider [phone] Siria Soriano LPN Unavailable Unavailab le Encounter Details Date Type Department Care Team (Late st Contact Info) Description 06/20/2022 Outside Procedure External Location [address] [place] [address] Julio Pires, LUSTER APPLICATOR [address] [place] [address] Social History Tobacco Use Types [...] AM EDT Narrative 06/20/2022 9:00 [place] [address] Name: CARLOS MI Exam Date: 06/20/2022 : 1950 Age 72 Gender: F Physician: JULIO PIRES Facility: [facility] Facility HSV: Outpatient Exam: HIP 2 [...] Thank you for referring CARLOS MI to Psychiatric. Legally authenticated by ANEL YE 2022-06-20 08:48:15 Procedure Note Provider, [facility] 06/20/2022 [place] [address] Name: CARLOS MI Exam Date: 06/20/2022 : 1950 Age 72 Gender: F Physician: JULIO PIRES Facility: [facility] Facility HSV: Outpatient Exam: HIP 2 [...] Thank you for referring CARLOS MI to [facility]. Legally authenticated by ANEL YE 2022-06-20 08:48:15 us Julio Pires APRN IMG XR PROCEDURES Final Res ult documented in this encounter Visit Diagnoses Not on filedocumented in this encounter Additional Health Concerns Assessment Noted Time A fall risk assessment has been complete d for the patient 06/20/2022 7:38 AM EDT documented as of this encounter Care Teams Quenching Machine Operator Relationship Specialty Start Date End Date Julio Pires APRN [address] [place] [address] PCP - General 03/23/21 Siria Soriano LPN VALUE-BASED TRANSFORMATION PROGRAM Licensed Practical Nurse 09/22/24 03/21/25 documented as of this encounter
--- OUTSIDE RECORDS SUMMARY | 2025-08-22 12:51 | XMS_ITS | Referral Summary ---
Author Organization [employer] ([place], [place], [place], [place]) Address [address] [place] [address] Care Team Providers Care Patient Observation Assistant Name Role Phone Maci Driscoll NP Primary Care Provider [phone] Allergies No known active allergies Medications carvediloL [...] 0 11/27/2023 Family and Community Support Answer Donnei e Recorded Help with Day to Day Activities Not on file 11/27/2023 Feeling Lonely or Isolated Not on file 11/27 Educational Attainment Answer Date Tom rded Speak language other than Barbadian at home Not on file 11/27/2023 Want [...] Plan of Treatment Not on file Insurance [facility] MEDICARE PFFS [employer] MEDICARE PPO Care Teams Patient Observation Assistant Relationship Specialty Start Date End Date Maci Driscoll NP PCP - General Nurse Practitioner 09/23/22
--- OUTSIDE RECORDS SUMMARY | 2025-08-22 12:51 | XMS_ITS | Encounter Summary ---
Author Organization [facility] Address [address] [place] [address] Care Team Providers Care Malthouse Laborer Name Role Phone Maci Driscoll APRN Primary Care Provider [phone] Encounter Details Date Type Department Care Team [...] often do you attend chur ch or jew services? Never 09/22/2024 Do you belong to any clubs o r organizations such as baptism groups, unions, fraternal or athletic groups, or [...] Recorded Patient Health Questionnaire-2 Score 0 07/06/2025 [facility] - Occupational Stress Questionnaire Answer Date [...] any time in the past 12 m [facility], were you homeless or living in a residential (including now)? No 07/06/2025 Utilities Answer Date [...] way Not at all 07/06/2025 9:44 AM Renée Cohen Patient Health Questionnaire -9 Score 0 07/06/2025 9:44 AM Renée Cohen * Calculated C-SSRS Risk Score (Lifetime/Recent) Answer Date of Assessment Author No Risk Indicated 07/06/2025 9:46 AM Renée Acevedo * How difficult have these problems made it for you to do your work, take care of things at home, or get along with other people? Answer Date of Assessment Author Not difficult at all 07/06/2025 9:44 AM Renée Abdul * Question Answer Date of Assessment Author [...] Time PHQ-9 Depression Total Score: 0 07/06/20 9:44 AM EDT A fall risk assessment has been complete d for the patient 07/06/2025 9:44 AM EDT A Body Mass Index follow-up plan has been documented for the patient 06/27/2025 10:26 AM EDT documented as of this encounter Care Teams Malthouse Laborer Relationship Specialty Start Date End Date Maci Driscoll APRN [address] [place] [id number] PCP - General 03/23/21 documented as of this encounter
--- OUTSIDE RECORDS SUMMARY | 2025-08-22 12:51 | XMS_ITS | Encounter Summary ---
Author Organization [facility] Address [address] [place] [address] Care Team Providers Care Retanned Leather Roller Name Role Phone Maci Driscoll APRN Primary Care Provider [phone] Siria Soriano LPN Unavailable Unavailab le Reason for Visit * Reason Comments Med Refill Encounter Details Date Type Department Care Team (Late st Contact Info) Description 02/11/2023 Refill [facility] [address] [place] [address] Maci Driscoll APRN [address] [place] [address] Social History Tobacco Use Types [...] documented as of this encounter Care Teams Retanned Leather Roller Relationship Specialty Start Date End Date Maci Driscoll APRN [address] [place] [address] PCP - General 03/23/21 Siria Soriano LPN VALUE-BASED TRANSFORMATION PROGRAM Licensed Practical Nurse 09/22/24 03/21/25 documented as of this encounter
--- OUTSIDE RECORDS SUMMARY | 2025-08-22 12:51 | XMS_ITS | Clinical Summary ---
Author Organization [employer] ([place], [place], [place], [place]) Address [address] [place] [address] Care Team Providers Care Reconcilement Clerk Name Role Phone Maci Driscoll NP Primary Care Provider [phone] Allergies No known active allergies Medications carvediloL [...] Date Tom rded Speak language other than [place] at home Not on file 11/27/2023 Want [...] Tobacco Cessation Counseling and Screening (12+) 09/2309/23/2022 Falls Risk Screening 11/10/2024 Respiratory Syncytial Virus (RSV) Adult or (1 - 1-dose 75+ series) 2025 COVID-19 VACCINE (2023- season) 2025 Influenza Vaccine (#1) 2025 Colonoscopy 09/23/2032 09/23/2022 Colorectal Cancer Screening 09/23/2032 Insurance [employer] MEDICARE PFFS [employer] MEDICARE PPO Care Teams Reconcilement Clerk Relationship Specialty Start Date End Date Maci Driscoll NP PCP - General Nurse Practitioner 09/23/22
--- OUTSIDE RECORDS SUMMARY | 2025-08-22 12:51 | XMS_ITS | Encounter Summary ---
Author Organization Healthcare Address [address] [place] [address] Care Team Providers Care Commissioning Agent Name Role Phone Maci Driscoll APRN Primary Care Provider [phone] Encounter Details Date Type Department Care Team (Late st Contact Info) Description 06/28/2025 Results Follow-Up [facility] [address] [place] [address] Maci Driscoll APRN [address] [place] [address] Social History Tobacco Use Types [...] often do you attend chur ch or synagogue services? Never 09/22/2024 Do you belong to any clubs o r organizations such as worship groups, unions, fraternal or athletic groups, or [...] Recorded Patient Health Questionnaire-2 Score 0 06/27/2025 [facility] - Occupational Stress Questionnaire Answer [...] any time in the past 12 m [facility], were you homeless or living in a long term (including now)? No 09/22/2024 AUDIT-C Answer Date [...] In the past 12 months has e [employer], [employer], oil, or water [employer] threatened to shut off services in your [...] documented as of this encounter Care Teams Commissioning Agent Relationship Specialty Start Date End Date Maci Driscoll APRN [address] [address] PCP - General 03/23/21 documented as of this encounter
--- OUTSIDE RECORDS SUMMARY | 2025-08-22 12:51 | XMS_ITS | Encounter Summary ---
Author Organization Healthcare Address [address] [place] [address] Care Team Providers Care Decal Cutter Name Role Phone Maci Driscoll APRN Primary Care Provider [phone] Encounter Details Date Type Department Care Team [...] How often do you attend chur or yarsani services? Never 09/22/2024 Do you belong to any clubs o r organizations such as scientology groups, unions, fraternal or athletic groups, or [...] Recorded Patient Health Questionnaire-2 Score 0 06/27/2025 [facility] Occupat ional Health - Occupational [...] any time in the past [address] [facility], were you homeless or living in a detention (including now)? No 09/22/2024 AUDIT-C Answer Date [...] In the past 12 months has th [employer], gas, oil, or water company threatened to [...] Indicated 06/27/2025 10:01 AM Renée Ignacio * How difficult have these problems made it for you to do your work, take care of things at home, or get along with other people? Answer Date of Assessment Author Not difficult at all 06/27/2025 9:32 AM Renée Abdul * Question Answer Date [...] documented as of this encounter Care Teams Decal Cutter Relationship Specialty Start Date End Date Maci Driscoll APRN [address] [place] [address] PCP - General 03/23/21 documented as of this encounter
--- OUTSIDE RECORDS SUMMARY | 2025-08-22 12:51 | XMS_ITS | Clinical Summary ---
Author Organization [facility] Address [address] [place] [address] Care Team Providers Care Appeals Analyst Name Role Phone Maci Driscoll APRN Primary Care Provider [phone] Allergies No known active allergies Medications loratadine [...] daily. 90 tablet 3 07/06/20 25 Active Active Problems Problem Noted Date Diagnosed Date Renal cell carcinoma 01/12/2020 DDD (degenerative disc disease), lumbar 10/07/20 17 CAD (coronary artery disease) 01/28/2017 Benign essential hypertension 02/04/2015 Hyperlipidemia 02/04/2015 Resolved Problems Problem Noted Date Diagnosed Date Resolved Date Arthritis 07/22/2016 07/31/2025 Encounters Date Type Department Care Team Description 07/06/2025 9:40 AM EDT Office Visit [facility] [address] [place] [address] Maci Driscoll APRN Chronic right hip pain (Primary Dx); Benign essential hypertension 07/06/2025 Travel 06/28/2025 Results Follow-Up [facility] [address] [place] [address] Maci Driscoll APRN 06/27/2025 9:00 AM EDT Office Visit [facility] [address] [place] [address] Maci Driscoll APRN Abdominal pain, unspecified abdominal [...] 18+ 09/12/2021,02/14/2021 Moderna Covid-19 Vaccine 12y +, Batuista Protein, Preservative free 09/21/2024,09/11/2023 Pfizer-BioNTech COVID-19 Biv alent (Bailey Cap) 12+ years (anais-sucrose) 10/11/2022 Pfizer-BioNTech COVID-19 Vac cine (Purple Cap) 12+ 10/11/2022 Pneumococcal Conjugate PCV 13 08/08/2020, 016 Zoster, live 08/16/2025,02/28/2025 Family History Medical History Relation Name Comments [...] How often do you attend chur or mosque services? Never 09/22/2024 Do you belong to any clubs o r organizations such as taoism groups, unions, fraternal or athletic groups, or [...] Recorded Patient Health Questionnaire-2 Score 0 07/06/2025 [place] [employer] [facility] - Occupational Stress Questionnaire Answer Date [...] any time in the past 12 m [facility], were you homeless or living in a group home (including now)? No 07/06/2025 Utilities Answer Date [...] or (1 - 1-dose 75+ series) 2025 CYR-YOXPX-50 Vaccine ( - season) 2025 09/21/2024, 09/11/2023, 10/11/2022, Additional history exists [facility]-Influenza Vaccine (#1) 07/11/202508/31, 08/21/2023, 09/04/2022, Additional history exists [facility]-Medicare Annual Wellness (AWV) 09/28/2025 09/28/2024 [facility]-Zoster Vaccines (1 of 2) 10/11/2025 08/16/2025, 02/28/2025 [facility]- SDOH Screenings 01/06/2026 [facility]-Adult SDOH Screenings [...] LAB HEMATOLOGY METHOD 06/27/2025 4:26 PM EDT [facility] RBC Count 4.45 3.90 - 5.20 10*6/uL LAB HEMATOLOGY METHOD 06/27/2025 4:26 PM EDT [facility] HGB 13.6 11.2 - 15.7 g/dL LAB HEMATOLOGY METHOD 06/27/2025 4:26 PM EDT [facility] HCT 41.5 34.0 - 45.0 % LAB HEMATOLOGY METHOD 06/27/2025 4:26 PM EDT [facility] Platelet Count 354 155 - 369 10*3/uL LAB HEMATOLOGY METHOD 06/27/2025 4:26 PM EDT [facility] MCV 93 79 - 98 fL LAB HEMATOLOGY METHOD 06/27/2025 4:26 PM EDT [facility] MCH 30.6 26.0 - 32.0 pg LAB HEMATOLOGY METHOD 06/27/2025 4:26 PM EDT [facility] MCHC 32.8 30.7 - 35.5 g/dL LAB HEMATOLOGY METHOD 06/27/2025 4:26 PM EDT [facility] RDW 13.4 11.5 - 14.5 % LAB HEMATOLOGY METHOD 06/27/2025 4:26 PM EDT [facility] MPV 10.0 8.8 - 12.5 fL LAB HEMATOLOGY METHOD 06/27/2025 4:26 PM EDT [facility] nRBC 0.0 <=0.0 per 100 WBCs LAB HEMATOLOGY METHOD 06/27/2025 4:26 PM EDT [facility] Differential Type Automated LAB HEMATOLOGY METHOD 06/27/2025 4:26 PM EDT [facility] Neutrophils % 62 % LAB HEMATOLOGY METHOD 06/27/2025 4:26 PM EDT [facility] Lymphocytes % 25 % LAB HEMATOLOGY METHOD 06/27/2025 4:26 PM EDT [facility] Monocytes % 9 % LAB HEMATOLOGY METHOD 06/27/2025 4:26 PM EDT [facility] Eosinophils % 2 % LAB HEMATOLOGY METHOD 06/27/2025 4:26 PM EDT [facility] Basophils % 1 % LAB HEMATOLOGY METHOD 06/27/2025 4:26 PM EDT [facility] Immature Granulocytes % 1 % LAB HEMATOLOGY METHOD 06/27/2025 4:26 PM EDT [facility] Neutrophils Absolute 5.94 1.60 - 6.10 10*3/uL LAB HEMATOLOGY METHOD 06/27/2025 4:26 PM EDT [facility] Lymphocytes Absolute 2.34 1.20 - 3.90 10*3/uL LAB HEMATOLOGY METHOD 06/27/2025 4:26 PM EDT [facility] Monocytes Absolute 0.83 0.30 - 0.90 10*3/uL LAB HEMATOLOGY METHOD 06/27/2025 4:26 PM EDT [facility] Eosinophils Absolute 0.21 0.00 - 0.50 10*3/uL LAB HEMATOLOGY METHOD 06/27/2025 4:26 PM EDT [facility] Basophils Absolute 0.07 0.00 - 0.10 10*3/uL LAB HEMATOLOGY METHOD 06/27/2025 4:26 PM EDT [facility] Immature Granulocytes Absolute 0.05 0.00 - 0.06 10*3/uL LAB HEMATOLOGY METHOD 06/27/2025 4:26 PM EDT [facility] Blood Venous blood specimen / Unknown Venipuncture / Unknown 06/27/2025 10:12 AM EDT 06/27/2025 10:12 AM EDT Narrative [facility] - 06/27/2025 4:26 PM EDT Therapeutic decision making should be based on absolute values, rather than percentages. Maci E Driscoll LAB BLOOD ORDERABLES Final Result Performing Organization Address [facility]/ZIP Co de Phone Number [facility] [address] [place] [address] * Urine Culture (06/27/2025 10:12 AM EDT) Pathologist [facility] Culture 10,000 - 100,000 CFU/mL Mixed urogenital, fecal, or skin gerardo present. 06/28/2025 2:52 PM EDT [facility] Urine Urine specimen obtained by clean catch procedure / Unknown Non-blood Collection / Unknown 06/27/2025 10:12 AM EDT 06/27/2025 10:12 AM EDT [facility] Driscoll LAB MICROBIOLOGY - GENERAL ORDERABLES Final Result Performing Organization Address [facility] Co de Phone Number [facility] [address] [place] [address] * C-Reactive Protein, High Sensitivity, Plasma (06/27/2025 10:12 AM EDT) CRP, High Sensitivity, Plasma 0.59 <=3 mg/L 06/27/2025 5:46 PM EDT [facility] Blood Venous blood specimen / Unknown Venipuncture / Unknown 06/27/2025 10:12 AM EDT 06/27/2025 10:12 AM EDT Narrative [facility] - 06/27/2025 5:46 PM EDT [...] to assess risk of future cardiovascular event. us Maci Driscoll EMPLOYEE RELATIONS ADMINISTRATOR LAB BLOOD ORDERABLES Final Result [facility] [address] [place] [address] * (ABNORMAL) Comprehensive Metabolic Panel, Plasma (06/27/2025 10:12 AM EDT) Glucose, Plasma 102(H) 74 - 99 mg/dL 06/27/2025 5:11 PM EDT [facility] BUN, Plasma 14 8 - 23 mg/dL 06/27/2025 5:11 PM EDT [facility] Creatinine, Plasma 0.96 0.60 - 1.10 mg/dL 06/27/2025 5:11 PM EDT [facility] BUN/Creatinine Ratio 15 06/27/2025 5:11 PM EDT [facility] Sodium, Plasma 141 136 - 145 mmol/L 06/27/2025 5:11 PM EDT [facility] Potassium, Plasma 4.4 3.6 - 4.9 mmol/L 06/27/2025 5:11 PM EDT [facility] Chloride, Plasma 106 97 - 107 mmol/L 06/27/2025 5:11 PM EDT [facility] CO2, Plasma 22 22 - 29 mmol/L 06/27/2025 5:11 PM EDT [facility] Anion Gap 13 6 - 16 mmol/L 06/27/2025 5:11 PM EDT [facility] Total Calcium, Plasma 9.6 8.9 - 10.2 mg/dL 06/27/2025 5:11 PM EDT [facility] Total Protein 7.1 6.3 - 7.9 g/dL 06/27/2025 5:11 PM EDT [facility] Albumin, Plasma 4.3 3.5 - 5.2 g/dL 06/27/2025 5:11 PM EDT [facility] AST, Plasma 23 10 - 35 U/L 06/27/2025 5:11 PM EDT [facility] ALT, Plasma 16 10 - 35 U/L 06/27/2025 5:11 PM EDT [facility] Alkaline Phosphatase, Plasma 69 46 - 142 U/L 06/27/2025 5:11 PM EDT [facility] Total Bilirubin, Plasma 0.5 0.2 - 1.1 mg/dL 06/27/2025 5:11 PM EDT [facility] eGFRcr 61.8 mL/min/1.7 3m*2 06/27/2025 5:11 PM EDT [facility] Comment:Reported eGFRcr in m L/min/1.73m2 is based the CKD-EPI 2020 equation that does not use a race coefficient. Blood Venous blood specimen / Unknown Venipuncture / Unknown 06/27/2025 10:12 AM EDT 06/27/2025 10:12 AM EDT Maci Driscoll EMPLOYEE RELATIONS ADMINISTRATOR LAB BLOOD ORDERABLES Final Result [facility] [address] [place] [address] * (ABNORMAL) POCT Urinalysis Dipstick (06/27/2025 9:51 AM EDT) POCT Urine Color Yellow POCT Urine Clarity Clear POCT Glucose Urine Negative Negative mg/dL POCT Bilirubin, Urine Negative Negative POCT Ketones, Urine Negative Negative mg/dL POCT Specific [place], Urine 1.010 POCT Blood, Urine Trace(A) Negative POCT pH, Urine 5.5 5.0 to 8.0 POCT Protein, Urine Negative Negative mg/dL POCT Urobilinogen, Urine 0.2 0.2, 1 E.U./dL POCT Nitrite, Urine Negative Negative POCT Leukocyte Esterase, Urine Negative Negative Test Strip Lot Number [id number] Test Strip Lot Expiration 06/08/2026 Urine Urine [...] to: 08/21/2018 Mammography Outside Images Upload at [facility] 09/03/2019 Mammography Outside Images Upload at [facility] 09/06/2020 Mammography Outside Images Upload at [facility] 10/15/2021 Mammography Breast Screening Tomosynthesis Bilateral BREAST COMPOSITION: The breasts are heterogeneously dense, which may obscure small masses. FINDINGS: There are no suspicious masses, calcifications, or areas of architectural distortion. us Shalini Clemons EMPLOYEE RELATIONS ADMINISTRATOR IMG BI PROCEDURES Final Res ult * COLONOSCOPY EXTERNAL RESULT (01/27/2012) Anatomical Region Laterality Modality Endoscopy Narrative 01/27/2012 Ordered by an unspecified provider. us External Provider GI PROCEDURE ORDERABLES Final Result from Last 3 Months or Most Recently Relevant to Health Maintenance Insurance [facility] MEDICARE Care Teams Appeals Analyst Relationship Specialty Start Date End Date Maci Driscoll [place] [address] PCP - General 03/23/21
--- OUTSIDE RECORDS SUMMARY | 2025-08-22 12:51 | XMS_ITS | Encounter Summary ---
Author Organization Healthcare Address [address] [place] [address] Care Team Providers Care Pm Technician Name Role Phone Julio Pires PACKAGING OPERATOR Primary Care Provider [phone] Siria Soriano LPN Unavailable Unavailab le Encounter Details Date Type Department Care Team (Late st Contact Info) Description 10/15/2021 Outside Procedure External Location [address] [place] [address] Julio Pires, PACKAGING OPERATOR [address] [place] [address] Social History Tobacco Use Types [...] AM EST Narrative 10/15/2021 9:51 AM EST [address] [address] Name: CARLOS MI Exam Date: 10/15/2021 : 1950 Age 71 Gender: F Physician: JULIO PIRES Facility: [facility] Facility HSV: Outpatient Exam: SARAI SCRN [...] Thank you for referring CARLOS MI to [facility]. Legally authenticated by POPE MALATHI Dewey 2021-10-15 09:39:17 Procedure Note Provider, [facility] - 10/15/2021 [place] [address] Name: CARLOS MI Exam Date: 10/15/2021 : 1950 Age 71 Gender: F Physician: JULIO PIRES Facility: [facility] Facility HSV: Outpatient Exam: SARAI SCRN [...] Thank you for referring CARLOS MI to [facility]. Legally authenticated by POPE MALATHI Dewey 2021-10-15 09:39:17 us Julio Pires APRN IMG BI PROCEDURES Final Res ult documented in this encounter Visit Diagnoses Not on filedocumented in this encounter Additional Health Concerns Assessment Noted Time A fall risk assessment has been complete d for the patient 07/19/2021 2:12 PM EDT documented as of this encounter Care Teams Pm Technician Relationship Specialty Start Date End Date Julio Pires APRN [address] [place] [address] PCP - General 03/23/21 Siria Soriano LPN VALUE-BASED TRANSFORMATION PROGRAM Licensed Practical Nurse 09/22/24 03/21/25 documented as of this encounter
--- OUTSIDE RECORDS SUMMARY | 2025-08-22 12:51 | XMS_ITS | Clinical Summary ---
Author Organization [facility] Address [address] [place] [address] Care Team Providers Care Radiation Safety Officer Name Role Phone AmericoMaci PAUL Primary Care [...] 1- dose 75+ series) 2025 INFLUENZA VACCINE 06/10/2025 08/02/2020, , 08/18/2018, Additional history exists COVID-19 Vaccine ( - 2024-2 6 season) 2025 09/12/2021, 02/14/2021 ANNUAL WELLNESS VISIT 09/28/2025 09/28/2024 Insurance [facility] MEDICARE ADVANTAGE Care Teams Radiation Safety Officer Relationship Specialty Start Date End Date Maci Driscoll APRN [address] [place] [address] PCP - General Family Medicine 02/12/22
--- NOTE | 2025-08-22 13:45 | MR_ITS ---
FINAL REPORT TECHNIQUE: Multiplanar and multisequence imaging of the lumbar spine was obtained without contrast. CLINICAL HISTORY: low back pain across back right hip pain and left leg swelling 1-2 years COMPARISON: None FINDINGS: There is normal alignment of the lumbar vertebral bodies in the sagittal plane. Mild levoscoliosis is noted. Vertebral body height is preserved. The spinal cord ends at the level of L1. There is normal signal intensity within the substance of the distal spinal cord. There are type I Modic endplate changes at the L1-2 level. No acute bone marrow edema or pathologic marrow replacement. There is no visible left kidney on this exam, and the kidney may have been resected. L1-2: An annular bulge is present with degenerative endplate changes and facet osteoarthropathy. There is mild central canal stenosis, moderate to severe right and mild left neural foraminal narrowing. L2-3: An annular bulge is present with degenerative endplate changes and facet osteoarthropathy. There is no central canal stenosis, however there is moderate left greater than right bilateral neural foraminal narrowing. L3-4: An annular bulge is present with degenerative endplate changes and facet osteoarthropathy. There is no central canal stenosis, however there is mild bilateral neural foraminal narrowing. L4-5: An annular bulge is present with degenerative endplate changes, and facet osteoarthropathy. There is mild central canal stenosis and moderate bilateral neural foraminal narrowing. L5-S1: An annular bulge is present with degenerative endplate changes and facet osteoarthropathy. There is no central canal stenosis, however there is mild right and moderate to severe left neural foraminal narrowing. IMPRESSION: Multilevel degenerative change is present, with mild canal stenosis at the L1-2 and L4-5 levels, and moderate to severe multilevel neuroforaminal narrowing. Reviewed, Interpreted and Dictated by Jada Grigsby MD Transcribed by Sonja Rhodes Authenticated and [facility]
== END 2025-08-22 23:59 | disposition home or self-care (01) ==
LOC: RAD 12:43
PROVIDERS: PCP Nurse Practitioner Family; Visit Provider Nurse Practitioner Family
DX: M47.816 Spondylosis without myelopathy or radiculopathy, lumbar region (principal); M48.061 Spinal stenosis, lumbar region without neurogenic claudication; M99.73 Connective tissue and disc stenosis of intervertebral foramina of lumbar region; M51.369 Other intervertebral disc degeneration, lumbar region without mention of lumbar back pain or lower extremity pain
CPT/HCPCS: 72148

== ENCOUNTER 2025-10-18 09:09 | Day surgery (SDC) | payer MEDICARE, SELFPAY ==
[2025-10-18 09:16] VITALS: BP 148/82; PULSE 60; RESP 18; O2SAT 96; BMI 28.1
[2025-10-18 09:40] VITALS: BP 148/82; PULSE 60; RESP 18; O2SAT 96
[2025-10-18] MEDS: DEXAMETHASONE 10MG/ML 1ML VIAL 10 MG (09:42)
[2025-10-18] MEDS: LIDOCAINE 1% 5ML PF VIAL 5 ML (09:43)
[2025-10-18] MEDS: BUPIVACAINE 0.25% 10ML INJ 25 MG IJ (09:43)
[2025-10-18 09:46] VITALS: BP 148/82; PULSE 60; RESP 18; O2SAT 96
--- NOTE | 2025-10-18 09:53 | EXP.PAIN.PRO ---
Procedure Date: 10/18/25 Time: 09:30 Anesthesiologist:: Wood Leon CRNA Complications:: None Pre-procedure Diagnosis:: DJD right hip. Chronic right hip pain. Post-procedure Diagnosis:: Same. Indications for Procedure:: Patient is a pleasant 75-year-old female who comes to clinic today for a right intra-articular hip injection of cortisone local acetic. Patient describes right hip pain as constant, dull, aching. She rates her pain 7/10. Procedure Details:: Details of the procedure were explained to the patient. The patient was taken to procedure room placed in the supine position. The area over the right hip was cleaned using chlorhexidine as a cleansing solution. Using fluoroscopy guidance a 3 and half inch 22-gauge spinal needle was used to access the right hip joint without difficulty. After negative aspiration 3 cc of 1% lidocaine +3 cc of 0.25% Marcaine and 10 mg of dexamethasone was injected. Needle was withdrawn. Band-Aid applied. Patient tolerated procedure without difficulty. There are no complications. Plan and Disposition:: Patient was discharged without incident.
[2025-10-18 10:05] VITALS: BP 157/82; PULSE 69; RESP 16; O2SAT 95
== END 2025-10-18 10:05 | disposition home or self-care (01) ==
PROVIDERS: PCP Nurse Practitioner Family; Visit Provider Nurse Anesthetist, Certified Registered
DX: M16.11 Unilateral primary osteoarthritis, right hip (principal); E78.5 Hyperlipidemia, unspecified; I10 Essential (primary) hypertension; Z90.5 Acquired absence of kidney; Z79.899 Other long term (current) drug therapy; Z85.528 Personal history of other malignant neoplasm of kidney
CPT/HCPCS: 20610; J0665; J1100; J2003